=== PATIENT | female | born 1955 | race Caucasian/White ===

== ENCOUNTER → 2025-01-03 | Outpatient (CLI) | payer MEDICARE, OTHER, SELFPAY ==
--- NOTE | 2025-01-03 13:25 | MRI_ITS ---
EXAM: MRI LUMBAR SPINE. CLINICAL HISTORY: BACK PAIN RADIATING TO THE RIGHT LOWER EXTREMITY. COMPARISON: Radiographs on 11/29/2024. TECHNIQUE: Axial and sagittal T1 and T2 weighted images were obtained. Fat suppressed images were also obtained. FINDINGS: S-shaped degenerative scoliosis. Moderate diffuse spondylotic changes. Findings are demonstrated by multifocal disc dehydration, disc space narrowing, osteophyte formation and degenerative endplate changes. There is normal signal intensity from the visualized bone marrow without evidence of replacement or acute fracture. The conus is unremarkable. Straightening of the lumbar lordosis, probably muscular spasm and pain. Evaluation of the individual levels revealed the following: L5-S1: There is mild diffuse disc bulge. Superimposed broad-based left foraminal disc protrusion measuring 3.2 mm. Bilateral facet joint arthropathy and ligamentum flavum hypertrophy. The spinal canal is not narrowed. There is minimal right and mild left neural foramina narrowing. L4-5: There is mild diffuse disc bulge. Superimposed broad-based left posterolateral/foraminal disc protrusion measuring 5.4 mm. Bilateral facet joint arthropathy and ligamentum flavum hypertrophy. The spinal canal is not narrowed. There is mild right and moderate left neural foramina narrowing. L3-4: There is mild diffuse disc bulge. Superimposed broad-based right foraminal disc protrusion measuring 3.2 mm. Bilateral facet joint arthropathy and ligamentum flavum hypertrophy. The spinal canal is not narrowed. There is moderate right and mild left neural foramina narrowing. L2-3: There is grade 1 retrolisthesis measuring 5.2 mm. Moderate diffuse disc bulge. Superimposed broad-based right foraminal disc protrusion measuring 5.6 mm. Bilateral facet joint arthropathy and ligamentum flavum hypertrophy. The spinal canal is not narrowed. There is moderate right and mild left neural foramina narrowing. L1-2: There is grade 1 anterolisthesis measuring 3.7 mm. Mild diffuse disc bulge. Superimposed broad-based right posterolateral disc protrusion measuring 4.4 mm. Bilateral facet joint arthropathy and ligamentum flavum hypertrophy. The spinal canal is not narrowed. There is mild bilateral neural foramina narrowing. T12-L1: There is mild diffuse disc bulge. Bilateral facet joint arthropathy and ligamentum flavum hypertrophy. The spinal canal is not narrowed. Mild bilateral neural foraminal narrowing. T11-T12 :There is mild diffuse disc bulge. Bilateral facet joint arthropathy and ligamentum flavum hypertrophy. The spinal canal is not narrowed. Mild bilateral neural foraminal narrowing. Normal visualized paraspinous soft tissue structures. MRI/Spine Lumbar (Routine) IMPRESSION: Spondylosis. Degenerative disc disease. Reading [facility]
== END | disposition home or self-care (01) ==
LOC: MRI 13:14
PROVIDERS: PCP Family Medicine; Referring Provider Student in an Organized Health Care Education/Training Program; Visit Provider Student in an Organized Health Care Education/Training Program
DX: M48.062 Spinal stenosis, lumbar region with neurogenic claudication (principal)
CPT/HCPCS: 72148

== ENCOUNTER → 2025-01-27 | Outpatient (CLI) | payer MEDICARE, OTHER, SELFPAY ==
--- NOTE | 2025-01-27 11:00 | BD_ITS ---
PROCEDURE: DEXA BONE DENSITY STUDY 01/27/2025 REASON FOR EXAM: PAIN F, age 69 y/o . Postmenopausal. TECHNIQUE: DXA scan of sites with data reported below. REFERENCE LINKS: [facility] Adult Positions COMPARISON: None FINDINGS: BMD and T-SCORES Lumbar spine: 1.145 g/cm2, T-score 0.9 Levels: L1 through L4 Left femoral neck: 0.711 g/cm2, T-score -1.2 Femoral neck comparison data not recommended for monitoring change. Left total hip: 0.929 g/cm2, T-score -0.1 Right femoral neck: 0.704 g/cm2, T-score -1.3 Femoral neck comparison data not recommended for monitoring change. Right total hip: 0.900 g/cm2, T-score -0.3 The World Health Organization has defined the following categories based on bone density: Normal bone density: T-score equal to or greater than -1.0 Osteopenia: T-score between -1.0 and -2.5 Osteoporosis: T-score equal to or less than -2.5 (Note: FRAX is not to be reported in setting of normal range bone density, osteoporosis on DEXA, known history of osteoporosis, prior osteoporotic hip or vertebral fracture, or for any patient undergoing pharmacological treatment for bone loss.) The National Osteoporosis Foundation (NOF) recommends pharmacological treatment for patients with a FRAX 10-year risk of 3% or higher for a hip fracture, or 20% or higher for a major osteoporotic fracture, to prevent osteoporosis and reduce fracture risk. The patient does meet the pharmacological treatment recommendations for prevention of osteoporosis. BD/Dexa Bone Density Study IMPRESSION: OSTEOPENIA. Recommend follow-up as clinically warranted. Reading Location: [id number]
== END | disposition home or self-care (01) ==
LOC: OPBD 10:45
PROVIDERS: PCP Family Medicine; Referring Provider Student in an Organized Health Care Education/Training Program; Visit Provider Student in an Organized Health Care Education/Training Program
DX: M81.0 Age-related osteoporosis without current pathological fracture (principal); Z78.0 Asymptomatic menopausal state
CPT/HCPCS: 77080

== ENCOUNTER 2025-05-16 13:00 | Inpatient (IN) | payer MEDICARE, OTHER, SELFPAY ==
--- NOTE | 2025-05-10 11:15 | EKG12_ITS ---
Test Reason : PREOP Blood Pressure : */* mmHG Vent. Rate : 85 BPM Atrial Rate : 85 BPM P-R Int : 176 ms QRS Dur : 96 ms QT Int : 376 ms P-R-T Axes : 64 52 57 degrees QTcB Int : 447 ms Normal sinus rhythm Normal ECG Confirmed by LAVINIA GUO, THELMA ([id number]), makeup editor BART GOODWIN ([id number] on 05/11/2025 9:34:10 AM Referred By: Praveen Alvarenga Confirmed By: THELMA KATE MD
[2025-05-10 11:39] LABS: Hematocrit 37.8 % (37-47); Hemoglobin 13.1 g/dL (12.0-15.0); Immature Granulocytes Count 0.050 X10^3/uL (0.0-0.0); Mean Corp Hgb Conc 34.7 g/dL (32-36); Mean Corpuscular Volume 91.3 fL (81-99); Mean Platelet Vol. 9.5 fl (6.2-12.0); NRBC Flagged by Analyzer 0 % (0-5); Platelet Count 252 K/mm3 (150-450); RBC Distribution Width CV 13.6 % (11.6-14.6); RBC Distribution Width SD 45.6 fl (35.1-43.9); Red Blood Count 4.14 M/mm3 (4.2-5.4); White Blood Count 7.2 K/mm3 (4.4-11.0)
[2025-05-10 12:25] LABS: Anion Gap 15 (5-15); BUN 18 mg/dL (4-19); BUN/Creat Ratio 16.5 RATIO (10-20); Calcium,Total 9.9 mg/dL (7.6-11.0); Carbon Dioxide 21.7 mmol/L (21.0-32.0); Chloride 100 mmol/L (98-108); Glucose 107 mg/dL (70-99); Hepatitis C Antibody Nonreactive (Nonreactive); Potassium 4.8 mmol/L (3.3-5.1)
[2025-05-10 12:30] LABS: Magnesium 2.3 mg/dL (1.5-2.2)
[2025-05-10 16:17] LABS: HIV Nonreactive (Nonreactive)
[2025-05-16] VITALS (16 sets, daily range): BP systolic 106–165; BP diastolic 78–110; PULSE 76–96; RESP 16–18; TEMP 36.1–36.9; O2SAT 92–100; BMI 34.2
--- OUTSIDE RECORDS SUMMARY | 2025-05-16 05:32 | XMS RPT_ITS | CCD ---
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 Name Role Phone Ganga Tay Unavailable GANGA TAY Unavailable Unavailab le MASONENZO Unavailable Unavailable STENCEL, GANGA QUAN Unavailable Unavailab le STENCEL, GANGA QUAN Unavailable Unavailab le STENCEL, GANGA QUAN Primary Care Unavailab le STENCEL, GANGA QUAN Attending Unavailab le STENCELGANGA Referring Unavailab le StenGanga mahoney Primary Care Provider [phone] Ganga Tay Unavailable Unavailable Unavailable Ganga Tay Primary Care Unavailab le Stencel, Ganga Quan Attending Unavailab le Stencel, Ganga Quan Primary Care Unavailab le Stencel, Ganga Quan Attending Unavailab le Neelakandan Loggloria Admitting Unavailab le NeelakandanRubén Attending Unavailab le Stencel, Ganga Quan Primary Care Unavailab le StencelGanga Referring Unavailab le Stencel Ganga GUO Primary Care Provider [phone] Ganga Tay MD Unavailable [phone] Ganga Tay MD Unavailable Ganga Tay MD Primary Care Provider GANGA TAY Primary Care Unavailable DOYLE GARCIA Attending Unavailable STENCELGANGA Primary Care Unavailable ALY HESS Attending Unavailable STENGANGA MAHONEY Referring Unavailable STENGANGA MAHONEY Primary Care Unavailable RAUL FLETCHER Attending Unavailable STENGANGA MAHONEY Referring Unavailable STENGANGA MAHONEY Primary Care Unavailable SRI BALDWIN Attending Unavailable STENCEL, GANGA D Referring Unavailable STENCEL, GANGA D Primary Care Unavailable THOMAS ALEXANDRA Attending Unavailable RAUL FLETCHER Referring Unavailable STENCEL, GANGA Javier Primary Care Unavailable RAUL FLETCHER Attending Unavailable STENCEL, GANGA D Primary Care Unavailable CHANCERAUL BOATENG Attending Unavailable STENCEL, GANGA D Primary Care Unavailable Philipcel Ganga GUO Unavailable [phone] Ganga Tay MD Primary Care Provider [phone] Care Physician, No Primary Primary Care Provider Unavailable Care Physician, No Primary Referring Provider Un available Ayleen Plaza Attending Provider Dr. Cale Goyal MD Attending Provider Ayleen Plaza Referring Provider [phone] Ganga Tay MD Primary Care Provider [phone] Dr. Ganga Tay MD Referring Provider Ganga Tay MD Unavailable Dr. Praveen Alvarenga MD Attending Provider Dr. Ganga Tay MD Primary Care Provider [phone] Ayleen Plaza Attending Provider [phone] Ayleen Plaza Referring Provider [phone] Praveen Alvarenga Admitting Unavailable Praveen Alvarenga Attending Unavailable Stencel, Ganga Primary Care Unavailable Praveen Alvarenga Referring Unavailable Ayleen House Attending Unavailable Ayleen House Referring Unavailable Stencel, Ganga Primary Care Unavailable Ayleen House Attending Unavailable Ayleen House Referring Unavailable Stencel, Ganga Primary Care Unavailable Praveen Alvarenga Attending Unavailable Stencel, Ganga Referring Unavailable Stencel, Ganga Primary Care Unavailable Stencel, Ganga Referring Unavailable Praveen Alvarenga Attending Unavailable Stencel, Ganga Primary Care Unavailable Ayleen House Attending Unavailable Care Physician, No Primary Primary Care Unava ilable Care Physician, No Primary Referring Unava ilable Cale Goyal Attending Unavailable Care Physician, No Primary Primary Care Unava ilable Stencel, Ganga Primary Care Unavailable Ayleen House Attending Unavailable Stencel, Ganga Referring Unavailable STENCEL, GANGA D Primary Care Unavailable STENCEL, GANGA D Primary Care Unavailable STENCEL, GANGA D Primary Care Unavailable STENCEL, GANGA Javier Attending Unavailable STENCEL, GANGA D Primary Care Unavailable STENCEL, GANGA Javier Attending Unavailable HESSALY Referring Unavailable STENCEL, GANGA Javier Primary Care Unavailable STENCEL, GANGA D Attending Unavailable STENCEL, GANGA D Referring Unavailable STENCEL, GANGA D Primary Care Unavailable STENCEL, GANGA D Attending Unavailable STENCEL, GANGA D Primary Care Unavailable STENCEL, GANGA D Attending Unavailable STENCEL, GANGA D Referring Unavailable STENCEL, GANGA D Primary Care Unavailable STENCEL, GANGA D Attending Unavailable STENCEL, GANGA D Primary Care Unavailable STENCEL, GANGA D Attending Unavailable STENCEL, GANGA D Referring Unavailable STENCEL, GANGA D Primary Care Unavailable Allergies Allergy Classification Reported Allergen(s) Allergy Type Date of Onset Reaction(s) Facility (1 source) Seasonal Allergies: Uncoded; Translations: [Seasonal Allergies: Uncoded] Propensity to adverse reactions (disorder) [facility] Medications Current Medications Medication Drug Class(es) Dates Sig (Normalized) Sig (Original) acetaminophen 325 mg / oxyCODONE hydrochloride 5 mg oral tablet (1 source) Opioid Agonist Start: 08-30-2024 End: 09-06-2024 take 1 tablet by mouth every six hours for pain oxyCODONE-acetamin ophen (Percocet) 5-325 mg tablet Indications: Lumbar radiculopathy Take 1 tablet by mouth every 6 hours if needed for severe pain (7 - 10) for up to 7 days. 28 tablet 08/30/2024 09/06/2024 Active [id number] 200 actuat albuterol 0.09 mg/actuat metered dose inhaler (5 sources) beta2-Adrenergic Agonist Start: 07-05-2024 End: 07-05-2025 take 2 puff(s) by inhalation every six hours in the evening for wheezing albuterol 90 mcg/actuation inhaler Indications: Acute bronchitis, unspecified organism Inhale 2 puffs every 6 hours if needed for wheezing. 6.7 g 07/05/2024 2:51 PM EDT 07/05/2024 08/24/2024 Discontinued (Therapy completed) alendronic acid 70 mg oral tablet (20 sources) Bisphosphonate Start: 12-29-2024 End: 02-16-2025 take 1 tablet by mouth every week alendronate (Fosamax) 70 mg tablet Indications: Osteopenia of hip, unspecified laterality TAKE 1 TABLET BY MOUTH EVERY WEEK. take with plain water. no food other meds or lying down for at least 30 minutes afterwards 12 tablet 3 12/29/2024 02/16/2025 Discontinued (Therapy completed) Start: 12-18-2023 take 1 tablet by harpal th every week alendronate (Fosamax) 70 mg tablet Indications: Osteopenia of hip, unspecified laterality TAKE 1 TABLET BY MOUTH EVERY WEEK. take with plain water. no food other meds or lying down for at least 30 minutes afterwards 12 tablet 3 12/18/2023 Active Start: 12-24-2022 take 1 tablet by harpal th every week alendronate (Fosamax) 70 mg tablet Indications: Osteopenia of hip, unspecified laterality TAKE 1 TABLET BY MOUTH EVERY WEEK. take with plain water. no food other meds or lying down for at least 30 minutes afterwards 12 tablet 3 12/24/2022 Active Start: 08-02-2020 take 1 tablet by harpal th every week Alendronate Sodium 70 MG Oral Tablet TAKE 1 TABLET ONCE WEEKLY. Quantity: 12 Refills: 3 Ordered: 29-Jan-2022 Ganga Tay MD Start : 02-Aug-2020 Active aspirin 81 mg delayed release oral tablet (12 sources) Platelet Aggregation Inhibitor, Nonsteroidal Anti-inflammatory Drug End: 04-28-2025 take 1 tablet by mouth once daily aspirin 81 mg EC tablet Take 1 tablet (81 mg) by mouth once daily. 04/28/2025 Discontinued (Therapy completed) atorvastatin 40 mg oral tablet (17 sources) HMG-CoA Reductase Inhibitor Start: 09-09-2023 End: 08-30-2025 take 1 tablet by mouth once daily Atorvastatin 40 mg tablet Active 40 mg PO daily November 29, 2024 12:00am cholesterol azithromycin 250 mg oral tablet (1 source) Macrolide Antimicrobial Start: 07-05-2024 End: 07-10-2024 azithromycin (Zithromax Z-Priyank) 250 mg tablet Indications: Acute bronchitis, unspecified organism Take 2 tablets (500 mg) on Day 1, followed by 1 tablet (250 mg) once daily on Days 2 through 5. 6 tablet 07/05/2024 07/10/2024 Active 24 hr buPROPion hydrochloride 150 mg extended release oral tablet (7 sources) Aminoketone Start: 02-18-2025 take 1 tablet by mouth once daily Bupropion Hcl 150 mg tablet extended release 24 hr Active 150 mg PO daily February 18, 2025 12:00am Start: 02-16-2025 End: 04-28-2025 take 1 tablet by mouth once daily Bupropion Hcl 150 mg tablet extended release 24 hr Active 150 mg PO daily February 18, 2025 12:00am depression Start: 02-16-2025 End: 06-27-2025 take 1 tablet by mouth once daily in the morning buPROPion XL (Wellbutrin XL) 300 mg 24 hr tablet Indications: Nicotine dependence, cigarettes, uncomplicated Take 1 tablet (300 mg) by mouth once daily in the morning. Do not crush, chew, or split. 30 tablet 1 04/28/2025 06/27/2025 Active cetirizine hydrochloride 10 mg oral tablet (8 sources) Histamine-1 Receptor Antagonist take 0.5 tablet by mouth once daily cetirizine (ZyrTEC) 10 mg tablet Take 0.5 tablets (5 mg) by mouth once daily. Active cholecalciferol 0.025 mg oral tablet (2 sources) Vitamin D take 1 tablet by mouth once daily cholecalciferol (Vitamin D3) 25 mcg (1,000 units) tablet Take 1 tablet (25 mcg) by mouth once daily. Active fluticasone propionate 0.05 mg/actuat metered dose nasal spray (20 sources) Corticosteroid Start: End: take 2 spray(s) nasal route once daily fluticasone (Flonase) 50 mcg/actuation nasal spray Administer 2 sprays into each nostril once daily. 07/05/2020 02/16/2025 Discontinued (Therapy completed) Start: 07-05-2020 take 2 spray(s) nasa l route once daily Fluticasone Propionate 50 MCG/ACT Nasal Suspension USE 2 SPRAYS IN EACH NOSTRIL ONCE DAILY Quantity: 3 Refills: 3 Ordered: 29-Jan-2022 Ganga Tay MD Start : 05-Jul-2020 Active gabapentin 300 mg oral capsule (13 sources) Anti-epileptic Agent Start: 12-20-2024 gabapenti n (Neurontin) 300 mg capsule Indications: Lumbar radiculopathy 2 capsules in the morning, 1 capsule at Noon, 2 capsules at bedtime. 150 capsule 5 04/27/2025 4:40 PM EDT 12/20/2024 Active Start: 11-29-2024 take 1 capsule by mo uth three times daily as needed for pain Gabapentin 300 mg capsule Active 300 mg PO THREE TIMES A DAY as needed for pain November 29, 2024 12:00am Start: 10-11-2024 gabapentin (Ne urontin) 300 mg capsule Indications: Lumbar radiculopathy Take four capsules a day in three divided doses for 2 weeks,then increase to 5 capsules a day in 3 divided doses if needed 90 capsule 2 10/11/2024 Active Start: 08-24-2024 End: 11-22-2024 take 1 capsule by mouth three times daily gabapentin (Neurontin) 300 mg capsule Indications: Lumbar radiculopathy Take 1 capsule (300 mg) by mouth 3 times a day. 90 capsule 2 08/24/2024 10/11/2024 Discontinued (Reorder) losartan potassium 100 mg oral tablet (11 sources) Angiotensin 2 Receptor Austin Start: 08-30-2024 End: 08-30-2025 take 1 tablet by mouth once daily Losartan 100 mg tablet Active 100 mg PO daily November 29, 2024 12:00am bp 24 hr metFORMIN hydrochloride 500 mg extended release oral tablet (16 sources) Biguanide Start: 12-18-2023 End: 12-17-2025 take 1 tablet by mouth once daily in the morning Metformin 500 mg tablet extended release 24 hr Active 500 mg PO EVERY MORNING November 29, 2024 12:00am blood sugar montelukast 10 mg oral tablet (20 sources) Leukotriene Receptor Antagonist Start: 07-05-2020 End: 04-28-2025 take 1 tablet by mouth once daily montelukast (Singulair) 10 mg tablet Take 1 tablet (10 mg) by mouth once daily. 07/05/2020 04/28/2025 Discontinued (Therapy completed) sertraline 50 mg oral tablet (11 sources) Serotonin Reuptake Inhibitor Start: 02-18-2023 End: 12-17-2024 take 1 tablet by mouth once daily sertraline (Zoloft) 50 mg tablet Indications: Insomnia, unspecified type Take 1 tablet (50 mg) by mouth once daily. 90 tablet 3 12/18/2023 08/24/2024 Discontinued (Therapy completed) Start: 12-16-2022 End: 02-18-2023 take 1 tablet by mouth once daily at bedtime sertraline (Zoloft) 25 mg tablet Take 1 tablet (25 mg) by mouth once daily at bedtime. 0 12/16/2022 02/18/2023 Discontinued (Therapy completed) Start: 11-05-2022 take 1 tablet by harpal th at bedtime Sertraline HCl - 25 MG Oral Tablet TAKE 1 TABLET Bedtime Quantity: 30 Refills: 11 Ordered: 05-Nov-2022 Ganga Tay MD Start : 05-Nov-2022 Active levothyroxine sodium 0.175 mg oral tablet (20 sources) l-Thyroxine Start: 01-27-2025 End: 01-27-2026 take 1 tablet by mouth once daily Levothyroxine 175 mcg tablet Active 175 ug PO .qd May 02, 2025 12:00am thyroid Start: 12-21-2019 End: 12-17-2024 take 1 tablet by mouth once daily levothyroxine (Synthroid, Levoxyl) 175 mcg tablet Indications: Hypothyroidism, unspecified type Take 1 tablet (175 mcg) by mouth once daily. 90 tablet 3 12/18/2023 12/17/2024 Active Start: 08-08-2014 take 1 tablet by harpal th once daily Levothyroxine 150 MCG tablet Active 150 ug PO DAILY August 08, 2014 1:00am Completed/Discontinued Medications Medication Drug Class(es) Dates Sig (Normalized) Sig (Original) acetaminophen 325 mg / HYDROcodone bitartrate 5 mg oral tablet (5 sources) Opioid Agonist Start: 08-03-2024 End: 08-23-2024 take 2 tablets by mouth every six hours for pain HYDROcodone-acetam inophen ([place]) 5-325 mg tablet Indications: Acute midline low back pain without sciatica Take 2 tablets by mouth every 6 hours if needed for severe pain (7 - 10) for up to 7 days. 56 tablet 08/09/2024 08/16/2024 Discontinued (Reorder) albuterol 0.833 mg/ml / ipratropium bromide 0.167 mg/ml inhalation solution (2 sources) Anticholinergic, beta2-Adrenergic Agonist Start: 07-05-2024 End: 07-05-2024 ipratropium-albute roL (Duo-Neb) 0.5-2.5 mg/3 mL nebulizer solution 3 mL Start: 07-05-2024 End: 07-05-2024 3 mL, nebulization, Once, On Fri07/05/24 at 1425, For 1 dose cefprozil 250 mg oral tablet (3 sources) Cephalosporin Antibacterial Start: 08-02-2021 End: 01-31-2022 take 1 tablet by mouth once daily Cefprozil 250 MG Oral Tablet TAKE 1 TABLET EVERY 12 HOURS DAILY. Quantity: 14 Refills: 1 Ordered: 02-Aug-2021 Ganga Tay MD Start : 02-Aug-2021 End : 31-Jan-2022 Complete cyclobenzaprine hydrochloride 5 mg oral tablet (14 sources) Muscle Relaxant Start: 11-29-2024 End: 05-02-2025 take 1 tablet by mouth at bedtime Cyclobenzaprine 5 mg tablet Discontinued 5 mg PO AT BEDTIME November 29, 2024 12:00am May 02, 2025 8:13am Start: 10-11-2024 End: 01-31-2025 take 1 tablet by mouth three times daily as needed for muscle spasms Cyclobenzaprine 10 mg tablet Active 10 mg PO THREE TIMES A DAY as needed for muscle spasm November 29, 2024 12:00am diclofenac sodium 0.01 mg/mg topical gel (14 sources) Nonsteroidal Anti-inflammatory Drug Start: 11-29-2024 End: 05-02-2025 Diclofenac Sodium (Voltaren Arthritis Pain) 1 % gel Discontinued 2 g TOPICAL ONCE November 29, 2024 12:00am May 02, 2025 8:14am apply to single elbow, wrist or hand; for hand includes palm/fingers/back of hand Start: 10-11-2024 End: 10-11-2025 take 1 tablet by mouth once daily diclofenac sodium (Voltaren XR) 100 mg 24 hr tablet Indications: Lumbar radiculopathy Take 1 tablet (100 mg) by mouth once daily. 90 tablet 3 02/16/2025 Active hydroCHLOROthiazide 12.5 mg / lisinopril 10 mg oral tablet (3 sources) Thiazide Diuretic, Angiotensin Converting Enzyme Inhibitor Start: 12-21-2019 take 1 tablet by mouth once daily Lisinopril-hydroCHLOROthiazide 10-12.5 MG Oral Tablet Take 1 tablet daily Quantity: 90 Refills: 3 Ordered: 30-Jan-2021 Ganga Tay MD Start : 21-Dec-2019 Active Start: 11-27-2017 take 10-12.5 mg by mouth once lisinopril-hydrochlorothiazide (PRINZIDE,ZESTORETIC) 10-12.5 mg per tablet Take 1 tablet by mouth daily. 11 11/27/2017 Active Start: 11-27-2017 take 1 tablet by harpal th once daily lisinopril-hydrochlorothiazide (PRINZIDE,ZESTORETIC) 10-12.5 mg per tablet Take 1 tablet by mouth daily. 11 11/27/2017 Active hydroCHLOROthiazide 12.5 mg / losartan potassium 100 mg oral tablet (17 sources) Thiazide Diuretic, Angiotensin 2 Receptor Austin Start: 08-20-2023 End: 11-16-2024 take 1 tablet by mouth once daily losartan-hydrochlorothiazide (Hyzaar) 100-12.5 mg tablet Indications: Primary hypertension Take 1 tablet by mouth once daily. 90 tablet 3 11/17/2023 08/30/2024 Discontinued (Therapy completed) Start: 08-02-2021 take 1 tablet by harpal th once daily losartan-hydrochlorothiazide (Hyzaar) 100-12.5 mg tablet Take 1 tablet by mouth once daily. 0 08/02/2021 Active Start: 08-02-2021 take 1 tablet by harpal th once daily Losartan Potassium-HCTZ 50-12.5 MG Oral Tablet TAKE 1 TABLET DAILY. Quantity: 90 Refills: 3 Ordered: 02-Aug-2021 Ganga Tay MD Start : 02-Aug-2021 Active iohexol (OMNIPaque) 300 mg iodine/mL solution 3 mL (1 source) Start: 09-24-2024 End: 09-24-2024 3 mL, miscellaneous, Once in OR, Starting on Fri09/24/24 at 1415, For 1 dose, Intraprocedure 10 ml lidocaine hydrochloride 20 mg/ml injection (1 source) Antiarrhythmic, Amide Local Anesthetic Start: 09-24-2024 End: 09-24-2024 120 mg (6 mL), infiltration, Once, On Fri09/24/24 at 1430, For 1 dose, Intraprocedure Start: 09-24-2024 End: 09-24-2024 120 mg (6 mL), infiltration, Once, On Fri09/24/24 at 1430, For 1 dose, Intraprocedure 1 ml methylPREDNISolone acetate 40 mg/ml injection (1 source) Corticosteroid Start: 09-24-2024 End: 09-24-2024 As needed, Starting on Fri09/24/24 at 1409, Intraprocedure 1 ml morphine sulfate 4 mg/ml prefilled syringe (1 source) Opioid Agonist Start: 08-03-2024 End: 08-03-2024 4 mg, intravenous, Once, On Fri08/03/24 at 1125, For 1 dose 2 ml ondansetron 2 mg/ml injection (1 source) Serotonin-3 Receptor Antagonist Start: 08-03-2024 End: 08-03-2024 4 mg, intravenous, Once, On Fri08/03/24 at 1125, For 1 dose, When administering via IV Push, administer over 3-5 minutes. predniSONE 50 mg oral tablet (5 sources) Start: 08-03-2024 End: 08-09-2024 take 1 tablet by mouth once daily predniSONE (Deltasone) 50 mg tablet Indications: Acute midline low back pain without sciatica Take 1 tablet (50 mg) by mouth once daily for 5 days. 5 tablet 08/03/2024 08/09/2024 Discontinued (Therapy completed) Start: 07-05-2024 End: 07-11-2024 take 6 tablets by mouth once daily, then take 5 tablets by mouth once daily, then take 4 tablets by mouth once daily, then take 3 tablets by mouth once daily, then take 2 tablets by mouth once daily, then take 1 tablet by mouth once daily predniSONE (Deltasone) 10 mg tablet Indications: Acute bronchitis, unspecified organism Take 6 tablets (60 mg) by mouth once daily for 1 day, THEN 5 tablets (50 mg) once daily for 1 day, THEN 4 tablets (40 mg) once daily for 1 day, THEN 3 tablets (30 mg) once daily for 1 day, THEN 2 tablets (20 mg) once daily for 1 day, THEN 1 tablet (10 mg) once daily for 1 day. 21 tablet 07/05/2024 07/11/2024 Active Start: 08-02-2021 take 4 tablets by [facility] once daily at mealtime predniSONE 10 MG Oral Tablet TAKE 4 TABLET Daily TAKE WITH FOOD Quantity: 20 Refills: 2 Ordered: 02-Aug-2021 Ganga Tay MD Start : 02-Aug-2021 Active 5 ml sodium chloride 9 mg/ml injection (1 source) Start: 09-24-2024 End: 09-24-2024 As needed, Starting on Fri09/24/24 at 1409, Intraprocedure traZODone hydrochloride 50 mg oral tablet (3 sources) Serotonin Reuptake Inhibitor Start: 08-05-2022 End: 11-05-2022 take 1 tablet by mouth at bedtime traZODone HCl - 50 MG Oral Tablet TAKE 1 TABLET AT BEDTIME. Quantity: 30 Refills: 11 Ordered: 05-Aug-2022 Ganga Tay MD Start : 05-Aug-2022 End : 05-Nov-2022 Complete 1 ml triamcinolone acetonide 40 mg/ml injection (1 source) Corticosteroid Start: 12-16-2017 End: 12-16-2017 triamcinolone acetonide (KENALOG-40) injection 40 mg Problems Active Problems Problem Classification Problem Date Documented Da te Episodic/Chronic Allergic reactions (8 sources) Environmental allergy; Translations: [Other allergy, other than to medicinal agents] Episodic Chronic obstructive pulmonary disease and bronchiectasis (20 sources) Emphysema, unspecified; Translations: [Pulmonary emphysema] Onset: 08-20-2022 08-26-2023 Chronic Diabetes mellitus without complication (20 sources) Type 2 diabetes mellitus without complication; Translations: [Type 2 diabetes mellitus without complications] Onset: 12-18-2023 12-18-2023 Chronic Disorders of lipid metabolism (20 sources) Hyperlipidemia; Translations: [Other and unspecified hyperlipidemia] Onset: 02-03-2023 02-18-2023 Chronic Essential hypertension (20 sources) Hypertensive disorder; Translations: [Unspecified essential hypertension] Onset: 02-03-2023 02-03-2023 Chronic Immunizations and screening for infectious disease (20 sources) Patient encounter status; Translations: [Other specified vaccination] 08-26-2023 Episodic Nutritional deficiencies (1 source) Cobalamin deficiency; Translations: [Deficiency of other specified B group vitamins] 08-26-2023 Episodic Osteoporosis (1 source) Age-related osteoporosis without current pathological fracture; Translations: [Age-related osteoporosis without current pathological fracture] Onset: 02-01-2025 Chronic Other acquired deformities (3 sources) Scoliosis of lumbar spine; Translations: [Scoliosis, unspecified] 02-21-2025 Chronic Other acquired deformities (3 sources) Lumbar spondylolisthesis; Translations: [Spondylolisthesis, lumbar region] 02-21-2025 Episodic Other bone disease and musculoskeletal deformities (20 sources) Osteopenia; Translations: [Disorder of bone and cartilage, unspecified] Onset: 02-03-2023 02-03-2023 Episodic Other bone disease and musculoskeletal deformities (1 source) Other specified disorders of bone density and structure, left thigh; Translations: [Oth disrd of bone density and structure, left thigh] Onset: 07-29-2022 Episodic Other connective tissue disease (2 sources) Trigger thumb, left thumb; Translations: [Trigger thumb, left thumb] Onset: 12-16-2017 Episodic Other lower respiratory disease (1 source) Other nonspecific abnormal finding of lung field; Translations: [Other nonspecific abnormal finding of lung field] Onset: 08-20-2022 Episodic Other nervous system disorders (16 sources) Bilateral carpal tunnel syndrome; Translations: [Carpal tunnel syndrome, bilateral upper limbs] Onset: 08-26-2023 08-26-2023 Chronic Other nutritional; endocrine; and metabolic disorders (3 sources) Obesity; Translations: [Obesity, unspecified] Chronic Other nutritional; endocrine; and metabolic disorders (2 sources) Obese class I; Translations: [Class 1 obesity] 05-10-2025 Chronic Other screening for suspected conditions (not mental disorders or infectious disease) (4 sources) Encounter for screening mammogram for malignant neoplasm of breast; Translations: [Encntr screen mammogram for malignant neoplasm of breast] Onset: 07-29-2022 Episodic Other skin disorders (8 sources) Eruption; Translations: [Rash and other nonspecific skin eruption] Episodic Other upper respiratory disease (20 sources) Allergic rhinitis; Translations: [Allergic rhinitis, cause unspecified] Onset: 02-03-2023 02-03-2023 Chronic Other upper respiratory disease (2 sources) Allergic rhinitis, unspecified; Translations: [Allergic rhinitis, unspecified] Onset: 02-03-2023 Chronic Residual codes; unclassified (8 sources) Menopause present; Translations: [Symptomatic menopausal or female climacteric states] Episodic Residual codes; unclassified (4 sources) Asymptomatic menopausal state; Translations: [Asymptomatic menopausal state] Onset: 07-29-2022 Episodic Spondylosis; intervertebral disc disorders; other back problems (3 sources) Degeneration of lumbar intervertebral disc; Translations: [Degenerative disc disease, lumbar] 11-29-2024 Chronic Substance-related disorders (20 sources) Nicotine dependence; Translations: [Tobacco use disorder] Onset: 08-20-2022 Chronic Thyroid disorders (20 sources) Hypothyroidism; Translations: [Unspecified acquired hypothyroidism] Onset: 02-03-2023 02-18-2023 Chronic Unclassified (1 source) Patient encounter status 08-30-2024 Unclassified (3 sources) Low back pain, unspecified; Translations: [Low back pain, unspecified] Onset: 08-09-2024 Viral infection (2 sources) COVID-19; Translations: [COVID-19] Onset: 09-24-2021 Past or Other Problems Problem Classification Problem Date Documented Da te Episodic/Chronic Acute bronchitis (20 sources) Acute bronchitis; Translations: [Acute bronchitis] Onset: 02-03-2023 02-03-2023 Episodic Diabetes mellitus without complication (20 sources) Hyperglycemia; Translations: [Impaired fasting glucose] Onset: 02-03-2023 02-03-2023 Episodic Fluid and electrolyte disorders (8 sources) Hyponatremia; Translations: [Hypo-osmolality and hyponatremia] Onset: 08-03-2024 08-03-2024 Episodic Mood disorders (6 sources) Mood disorders Onset: 09-24-2024 09-24-2024 Other gastrointestinal disorders (20 sources) Stool DNA-based colorectal cancer screening positive; Translations: [Abnormal feces] Onset: 02-03-2023 02-03-2023 Episodic Residual codes; unclassified (20 sources) Insomnia; Translations: [Insomnia, unspecified] Onset: 02-03-2023 02-18-2023 Episodic Spondylosis; intervertebral disc disorders; other back problems (20 sources) Acute low back pain; Translations: [Acute midline low back pain without sciatica] Onset: 08-23-2024 08-03-2024 Episodic Unclassified (16 sources) Onset: 02-18-2023 Resolved: 09-24-2024 02-18-2023 Unclassified (2 sources) Low back pain, unspecified; Translations: [Low back pain, unspecified] Onset: 08-09-2024 Viral infection (20 sources) Disease caused by 2019-nCoV; Translations: [Other specified viral infection] Onset: 02-03-2023 Resolved: 02-03-2023 02-03-2023 Episodic Results Test Name Value Interpretation Reference Range Facility Bacteriaon 05-11-2025 Bacteria identified Cx Nom (Unsp spec) Test: Tissue/Wound Culture/Smear Specimen Source: Nasal Specimen Type: Tissue/Biopsy Specimen Date: 05/11/2025 1630 Result Date: 05/13/2025 0739 Result Status: Preliminary result Resulting Lab: [facility] [id number] [id number] CULTURE Culture in progress STAIN No polymorphonuclear leukocytes seen No organisms seen Normal [facility] Comment on above: Performed By: #### 6 463-4 #### LYNDSEY Oliva ([id number]) [facility] ([facility]) [address] [place] [address] Hepatitis A AB, Totalon 04-23 HEPATITIS A,TOT Negative Normal Negative [facility] Comment on above: Result Comment: Comm ent: The HAV total antibody assay detects both IgG and IgM but does not differentiate between them. A negative result suggests susceptibility to infection. A positive result could be due to vaccination, previously resolved infection or active infection. Testing for HAV IgM should be performed if active HAV infection is suspected. [facility] offers profiles that will automatically reflex positive HAV total antibody results to IgM (e.g., panel #[id number] HAV Antibody w/ Rfx). Performed at: [address] [id number] [employer] Range Controller: Kedar Kwok PhD, Phone: [phone] Performed By: #### B TSPAT, L3100.0300, L100.0100, L501.9985, L500.2500, L3890.9881, L3890.0242 ####[facility] [address] [place], [address] SARS coronavirus 2 RNAon SARS-CoV-2 (COVID-19) RNA WES+probe Ql (Resp) Not detected Normal Not Detected [facility] Comment on above: Order Comment: This assay is an FDA-cleared, in vitro diagnostic nucleic acid amplification test for the qualitative detection and differentiation of SARS CoV-2 from nasopharyngeal specimens collected from individuals with signs and symptoms of respiratory tract infections, and has been validated for use at [facility]. Negative results do not preclude COVID-19 infections and should not be used as the sole basis for diagnosis, treatment, or other management decisions. Testing for SARS CoV-2 is recommended only for patients who meet current clinical and/or epidemiological criteria defined by federal, state, or local public health directives. Performed By: #### 9 4500-6 #### LYNDSEY Oliva ([id number]) [facility] ([facility]) [id number] [place] [address] 12 Lead EKGon 05-10-2025 12 Lead EKG [facility] [address] [place] [address] 12 Lead EKG 05/10/25 1123 MR#: [id number] Acct: [id number] Name: RENETTA LUJAN Rep #: [id number] : 1955 69 From: Cale Goyal MD Attending Dr: Dr. Praveen Alvarenga MD Status: PRE IN Ordering Dr: Praveen Alvarenga MD Date: 05/10/25 Location: [facility] Sex: F C Admitted: Test Reason : PREOP Blood Pressure : */* mmHG Vent. Rate : 85 BPM Atrial Rate : 85 BPM P-R Int : 176 ms QRS Dur : 96 ms QT Int : 376 ms P-R-T Axes : 64 52 57 degrees QTcB Int : 447 ms Normal sinus rhythm Normal ECG Confirmed by CALE GOYAL MD ([id number]), associate entertainment editor BART GOODWIN ([id number]) on 05/11/2025 9:34:10 AM Referred By: Praveen Alvarenga Confirmed By: CALE GOYAL MD 05/11/25 0934 Date Cale Goyal MD CC: Dr. Praveen Alvarenga MD; Dr. Ganga Tay MD Signed Normal [facility] Basic Metabolic Profile (BMP )on 05-10-2025 BUN/CRE 16.5 RATIO Normal 10-20 [facility] Comment on above: Performed By: #### B TSPAT, L3100.0300, L100.0100, L501.9985, L500.2500, L3890.6301, L3890.6202 ####[facility] [address] [place], [address] Calcium [Mass/Vol] 9.9 mg/dL Normal 7.6-11.0 [facility] Comment on above: Performed By: #### B TSPAT, L3100.0300, L100.0100, L501.9985, L500.2500, L3890.6301, L3890.6202 ####[facility] [address] [place], [address] Chloride [Moles/Vol] 100 mmol/L Normal 98-108 [facility] Comment on above: Performed By: #### B TSPAT, L3100.0300, L100.0100, L501.9985, L500.2500, L3890.6301, L3890.6202 ####[facility] [address] [place], [address] CO2 [Moles/Vol] 21.7 mmol/L Normal 21.0-32.0 [facility] Comment on above: Performed By: #### B TSPAT, L3100.0300, L100.0100, L501.9985, L500.2500, L3890.6301, L3890.6202 ####[facility] [address] [place], [address] Creatinine [Mass/Vol] 1.10 mg/dL Normal 0.70-1.20 [facility] Comment on above: Performed By: #### B TSPAT, L3100.0300, L100.0100, L501.9985, L500.2500, L3890.6301, L3890.6202 ####[facility] [address] [place], [address] GAP 15 Normal 5-15 [facility] Comment on above: Performed By: #### B TSPAT, L3100.0300, L100.0100, L501.9985, L500.2500, L3890.6301, L3890.6202 ####[facility] [address] [place], [address] GFR/1.73 sq M.predicted among non-blacks MDRD (S/P/Bld) [Vol rate/Area] 54 mL/min/{1.73_m2} Low >60 [facility] Comment on above: Result Comment: mL/m in/1.73m2 CKD-EPI Creatinine Equation (2020) Performed By: #### B TSPAT, L3100.0300, L100.0100, L501.9985, L500.2500, L3890.6301, L3890.6202 ####[facility] [address] [place], [address] Glucose [Mass/Vol] 107 mg/dL High 70-99 [facility] Comment on above: Performed By: #### B TSPAT, L3100.0300, L100.0100, L501.9985, L500.2500, L3890.6301, L3890.6202 ####[facility] [address] [place], [address] Potassium [Moles/Vol] 4.8 mmol/L Normal 3.3-5.1 [facility] Comment on above: Performed By: #### B TSPAT, L3100.0300, L100.0100, L501.9985, L500.2500, L3890.6301, L3890.6202 ####[facility] [address] [place], [address] Sodium [Moles/Vol] 137 mmol/L Normal 133-145 [facility] Comment on above: Performed By: #### B TSPAT, L3100.0300, L100.0100, L501.9985, L500.2500, L3890.6301, L3890.6202 ####[facility] [address] [place], [address] Urea nitrogen [Mass/Vol] 18 mg/dL Normal 4-19 [facility] Comment on above: Performed By: #### B TSPAT, L3100.0300, L100.0100, L501.9985, L500.2500, L3890.6301, L3890.6202 ####[facility] [address] [place], [address] CBC W/Diff, Automatedon 04-22 Absolute Lymph 1.53 X10 3/uL Normal 0.83-4.51 [facility] Comment on above: Performed By: #### B TSPAT, L3100.0300, L100.0100, L501.9985, L500.2500, L3890.6301, L3890.6202 #### [facility] [address] [place], [address] Absolute Neut 4.6 X10 3/uL Normal 2.0-7.7 [facility] Comment on above: Performed By: #### B TSPAT, L3100.0300, L100.0100, L501.9985, L500.2500, L3890.6301, L3890.6202 #### [facility] [address] [place], [address] Basophils/100 WBC (Bld) 1.0 % Normal 0-1 [facility] Comment on above: Performed By: #### B TSPAT, L3100.0300, L100.0100, L501.9985, L500.2500, L3890.6301, L3890.6202 #### [facility] [address] [place], [address] Eosinophils/100 WBC (Bld) 4.2 % Normal 0-5 [facility] Comment on above: Performed By: #### B TSPAT, L3100.0300, L100.0100, L501.9985, L500.2500, L3890.6301, L3890.6202 #### [facility] [address] [place], [address] Erythrocyte distribution width (RBC) [Ratio] 13.6 % Normal 11.6-14.6 [facility] Comment on above: Performed By: #### B TSPAT, L3100.0300, L100.0100, L501.9985, L500.2500, L3890.6301, L3890.6202 #### [facility] [address] [place], [address] Hematocrit (Bld) [Volume fraction] 37.8 % Normal 37-47 [facility] Comment on above: Performed By: #### B TSPAT, L3100.0300, L100.0100, L501.9985, L500.2500, L3890.6301, L3890.6202 #### [facility] [address] [place], [address] Hemoglobin (Bld) [Mass/Vol] 13.1 g/dL Normal 12.0-15.0 [facility] Comment on above: Performed By: #### B TSPAT, L3100.0300, L100.0100, L501.9985, L500.2500, L3890.6301, L3890.6202 #### [facility] [address] [place], [address] IG% 0.700 Normal 0.0-0.9 [facility] Comment on above: Result Comment: IG% - Immature Granulocytes (promyelocytes, myelocytes and metamyelocytes) > 1% indicates that a LEFT SHIFT is Present. Performed By: #### B TSPAT, L3100.0300, L100.0100, L501.9985, L500.2500, L3890.6301, L3890.6202 #### [facility] [address] [place], [address] Lymphocytes/100 WBC (Bld) 21.3 % Normal 19-41 [facility] Comment on above: Performed By: #### B TSPAT, L3100.0300, L100.0100, L501.9985, L500.2500, L3890.6301, L3890.6202 #### [facility] [address] [facility] [place], [address] MCH (RBC) [Entitic mass] 31.6 pg Normal 27.0-32.0 [facility] Comment on above: Performed By: #### B TSPAT, L3100.0300, L100.0100, L501.9985, L500.2500, L3890.6301, L3890.6202 #### [facility] [address] [facility] [place], [address] MCHC (RBC) [Mass/Vol] 34.7 g/dL Normal 32-36 [facility] Comment on above: Performed By: #### B TSPAT, L3100.0300, L100.0100, L501.9985, L500.2500, L3890.6301, L3890.6202 #### [facility] [address] [place], [address] MCV (RBC) [Entitic vol] 91.3 fL Normal 81-99 [facility] Comment on above: Performed By: #### B TSPAT, L3100.0300, L100.0100, L501.9985, L500.2500, L3890.6301, L3890.6202 #### [facility] [address] [place], [address] Monocytes/100 WBC (Bld) 9.2 % Normal 0-10 [facility] Comment on above: Performed By: #### B TSPAT, L3100.0300, L100.0100, L501.9985, L500.2500, L3890.6301, L3890.6202 #### [facility] [address] [place], [address] Neutrophils/100 WBC (Bld) 63.6 % Normal 47-70 [facility] Comment on above: Performed By: #### B TSPAT, L3100.0300, L100.0100, L501.9985, L500.2500, L3890.6301, L3890.6202 #### [facility] [address] [facility] [place], [address] Nucleated RBC (Bld) [#/Vol] 0 10*3/uL Normal 0-5 [facility] Comment on above: Performed By: #### B TSPAT, L3100.0300, L100.0100, L501.9985, L500.2500, L3890.6301, L3890.6202 #### [facility] [address] [facility] [place], [address] Platelet mean volume (Bld) [Entitic vol] 9.5 fL Normal 6.2-12.0 [facility] Comment on above: Performed By: #### B TSPAT, L3100.0300, L100.0100, L501.9985, L500.2500, L3890.6301, L3890.6202 #### [facility] [address] [place], [address] Platelets (Bld) [#/Vol] 252 10*3/uL Normal 150-450 [facility] Comment on above: Performed By: #### B TSPAT, L3100.0300, L100.0100, L501.9985, L500.2500, L3890.6301, L3890.6202 #### [facility] [address] [place], [address] RBC (Bld) [#/Vol] 4.14 10*6/uL Low 4.2-5.4 [facility] Comment on above: Performed By: #### B TSPAT, L3100.0300, L100.0100, L501.9985, L500.2500, L3890.6301, L3890.6202 #### [facility] [address] [place], [address] RDW SD 45.6 fl High 35.1-43.9 [facility] Comment on above: Performed By: #### B TSPAT, L3100.0300, L100.0100, L501.9985, L500.2500, L3890.6301, L3890.6202 #### [facility] [address] [place], [address] WBC (Bld) [#/Vol] 7.2 10*3/uL Normal 4.4-11.0 [facility] Comment on above: Performed By: #### B TSPAT, L3100.0300, L100.0100, L501.9985, L500.2500, L3890.6301, L3890.6202 #### [facility] [address] [place], [address] HIVon 05-10-2025 HIV Non-Reactive Normal Nonreactive [facility] Comment on above: Result Comment: Non- Reactive Reactive Repeatedly reactive samples must be confirmed according to CDC recommended confirmatory algorithms. The subresults for either HIVAG or AHIV can be used as an aid in the selection of the confirmation algorithm for reactive samples. Send out specimens with Reactive results to [facility] for confirmation. Order the HIV antibody detection and differentiation: #[id number] Performed By: #### L 3890.6006 #### [facility] [address] [place], [place], [id number] Hemoglobin A1con 05-10-2025 HbA1c (Bld) [Mass fraction] 6.5 % High <=5.6 [facility] Comment on above: Result Comment: Norm al < 5.7 % Prediabetic 5.7 - 6.4 % Diabetic >or= 6.5 % Please note range changes. Performed By: #### B TSPAT, L3100.0300, L100.0100, L501.9985, L500.2500, L3890.6301, L3890.6202 ####[facility] [address] [place], [place], [id number] Hepatitis B Surface Antibody on 05-10-2025 HEP B Surf Ab Non-Reactive Normal [facility] Comment on above: Result Comment: <8.5 mIU/mL: Non-Reactive 8.5<= x <11.5 mIU/mL: Indeterminate >=11.5 mIU/mL: Reactive Non Reactive: Inconsistent with immunity less than <10 mIU/mL Reactive: Consistent with immunity greater than or equal to 10 mIU/mL Performed By: #### B TSPAT, L3100.0300, L100.0100, L501.9985, L500.2500, L3890.6301, L3890.6202 ####[facility] [address] [place], [place], [id number] Hepatitis C Antibodyon 05-10 Hepatitis C Ab Non-Reactive Normal Nonreactive [facility] Comment on above: Result Comment: Reac tive: Presumptive evidence of antibodies to HCV. Follow CDC recommendations for supplemental testing. Non-Reactive: Antibodies to HCV were not detected; does not exclude the possibility of exposure to HCV Reactive Results are presumptive evidence of antibodies to HCV. Follow CDC recommendations for supplemental testing. Order confirmation testing: HCV Quant by PCR testing - HCVPCR #[id number] Non Reactive: < 0.8 Equivocal: >/= 0.8 to < 1.0 Reactive: >/= 1.0 The CDC requires that a reactive/equivocal HCV antibody result be sent out for confirmation. HCV Quant by PCR testing. Performed By: #### B TSPAT, L3100.0300, L100.0100, L501.9985, L500.2500, L3890.6301, L3890.6202 ####[facility] [address] [place], [address] Magnesiumon 05-10-2025 Magnesium [Mass/Vol] 2.3 mg/dL High 1.5-2.2 [facility] Comment on above: Performed By: #### L 501.5200, L501.9520 #### [facility] [address] [place], [address] Orthopedic Visit Reporton Orthopedic Visit Report [facility] [address] [place] [address] [address] [place] [address] OFFICE VISIT Date of Service: 05/10/25 MR#: [id number] Acct: [id number] Name: RENETTA LUJAN Rep #: [id number] : 1955 Provider: Dr. Praveen Alvarenga MD Age/Sex: 69/F Location: [facility] Status: Signed Intake Vital Signs 11/29/24 10:05 05/10/25 10:03 Height 5 ft 9 in 5 ft 9 in Weight: 224 lb BMI 33.0 Intake Visit Reasons: lumbar spine Chief Complaint: Lumbar fusion pre op Accompanied by: Is patient in pain?: No Allergies Seasonal Allergies: Uncoded Adverse Reaction (Verified 05/10/25 10:05) Other Medications ???Medication ???Instructions ???Recorded ???Confirmed ???Type atorvastatin 40 mg tablet 40 mg PO QDAY cholesterol 11/29/24 05/10/25 History cyclobenzaprine 10 mg tablet 10 mg PO TID PRN muscle spasm 11/2005/10/25 History diclofenac sodium 100 mg 100 mg PO QDAY pain 11/29/2405/10 History tablet,extended release 24 hr gabapentin 300 mg capsule 300 mg PO TID PRN pain 11/29/24 History losartan 100 mg tablet 100 mg PO QDAY bp 11/29/24 5 History metformin 500 mg tablet,extended 500 mg PO QAM blood sugar 11/29/24 05/10/25 History release 24 hr bupropion HCl 150 mg 24 hr tablet, 150 mg PO QDAY depression 05/10/25 History extended release levothyroxine 175 mcg tablet 175 mcg PO .qd thyroid 05/02/25 History Have you fallen in the past year?: No PFSH Medical History (Updated 05/10/25 @ 10:12 by Albania Oviedo RN) Obesity (BMI 30.0-34.9) Wears contact lenses Wears glasses Ambulates with cane Diabetes Arthritis Back pain Dietary restriction Heartburn Smoker Hypertension Thyroid activity decreased Surgical History Hx of colonoscopy with polypectomy Family History Mother Hypertension Cancer Pancreatic Father Hypertension Grandmother Heart disease Congestive heart failure Grandfather No problems noted. Social History Smoking Status: Light Smoker (<10/day) alcohol intake: current substance use type: does not use HPI lumbar spine Details: This documentation accurately reflects the service provided and the decisions made by me, Dr. Praveen Alvarenga MD 05/10/25 0956. Part of today???s visit was documented by Ann Baez MA, acting as scribe. RENETTA LUJAN is a 69 year old F here today for lumbar fusion pre op. Patient would like to go over the surgery details. She would like to know what she can and can't do after the surgery. I went over the surgery pre op soap and the ensure drinks witgh the patient. I also gave her the pre op folder and the instructions how to use the ensure and the soap. The patient is a 69-year-old female presenting with a discussion about her upcoming spinal surgery. She has a history of scoliosis, which is a curvature of the spine, and arthritis, which has resulted in a loss of range of motion. The patient also has diabetes mellitus, which increases her risk of surgical complications. The patient has not had any previous surgeries on her lower back, which reduces her risk of nerve injury during the procedure. She has undergone two sections in the past, resulting in vertical incisions below the belly button. The patient recently quit smoking after 50 years, which is beneficial for her surgical recovery. - Musculoskeletal: Reports difficulty turning over in bed due to back pain. - Neurological: Reports pain primarily on the right side, with potential for pain on the left side post-surgery. Attestation: Documentation on this patient encounter was supported using ambient scribe technology/ voice AI technology. The patient consented to recording for the purpose of documenting the encounter. Provider reviewed content of the generated note prior to signature. 02/18/25: RENETTA LUJAN is a 69 year old F here today for bone density review. Patient rates her pain a 2/10 today. She states her pain is always there it just depends on the day, weather and her activity level. She denies any recent injections or treatment since her last visit. 01/13/2025: RENETTA LUJAN is a 69 year old F here today for lumbar spine MRI review. Patient states her pain has stayed the same since her last visit. She denies any recent injections since her last visit. Midline abdominal incision from 2 c sections, says that she has diabetes, unsure of last a1c, no heart or lung issues, no blood thinners. 11/29/2024: RENETTA LUJAN is a 69 year old F here today for lumbar spine pain. Patient (more content not included)... Normal [facility] Thyroid Stim Hormone (TSH)on 05-10-2025 TSH 0.792 uIU/mL Normal 0.300-4.200 [facility] Comment on above: Performed By: #### L 501.5200, L501.9520 #### [facility] [address] [place], [address] Type AND Screen - PAT ONLYon 05-10-2025 Ab SCREEN GEL Negative Normal [facility] Comment on above: Order Comment: Reaso n for Laboratory Test pre [id number] fusion Performed By: #### B TSPAT, L3100.0300, L100.0100, L501.9985, L500.2500, L3890.6301, L3890.6202 ####[facility] [address] [place], [address] Orthopedic Visit Reporton Orthopedic Visit Report [facility] [address] [place] [address] [address] [place] [address] OFFICE VISIT Date of Service: 02/18/25 MR#: [id number] Acct: [id number] Name: RENETTA LUJAN Rep #: [id number] : 1955 Provider: Dr. Praveen Alvarenga MD Age/Sex: 69/F Location: [facility] Status: Signed Intake Vital Signs 11/29/24 10:05 Height 5 ft 9 in Intake Visit Reasons: LUMBAR SPINE Chief Complaint: Bone Scan Review Accompanied by: and Daughter Is patient in pain?: Yes Pain scale (1-10): 2 Allergies Seasonal Allergies: Uncoded Adverse Reaction (Verified 02/18/25 13:59) Other Medications ???Medication ???Instructions ???Recorded ???Confirmed ???Type levothyroxine 150 mcg tablet 150 mcg PO DAILY 08/08/14 02/18/25 History atorvastatin 40 mg tablet 40 mg PO QDAY 11/29/24 02/18/25 Hi story cyclobenzaprine 10 mg tablet 10 mg PO TID PRN muscle spasm 11/2002/18/25 History cyclobenzaprine 5 mg tablet 5 mg PO QHS 11/29/24 02/18/25 Hist ory diclofenac sodium 1 % topical gel 2 g topical ONCE 11/29/24 5 History (Voltaren Arthritis Pain) diclofenac sodium 100 mg 100 mg PO QDAY 11/29/24 02/18/25 H istory tablet,extended release 24 hr gabapentin 300 mg capsule mg PO 11/29/24 02/18/25 History losartan 100 mg tablet 100 mg PO QDAY 11/29/24 02/18/25 H istory metformin 500 mg tablet,extended 500 mg PO QAM 11/29/24 02/18/25 Hi story release 24 hr bupropion HCl 150 mg 24 hr tablet, 150 mg PO QDAY 02/18/25 02/18/25 History extended release Have you fallen in the past year?: No PFSH Medical History Thyroid activity decreased Family History Mother Hypertension Cancer Pancreatic Father Hypertension Grandmother Heart disease Congestive heart failure Grandfather No problems noted. Social History Smoking Status: Current every day smoker alcohol intake: current substance use type: does not use HPI LUMBAR SPINE Details: This documentation accurately reflects the service provided and the decisions made by me, Dr. Praveen Alvarenga MD 02/18/25 0657. Part of today???s visit was documented by Monica Dyson ATC, acting as scribe. RENETTA LUJAN is a 69 year old F here today for bone density review. Patient rates her pain a 2/10 today. She states her pain is always there it just depends on the day, weather and her activity level. She denies any recent injections or treatment since her last visit. 01/13/2025: RENETTA LUJAN is a 69 year old F here today for lumbar spine MRI review. Patient states her pain has stayed the same since her last visit. She denies any recent injections since her last visit. Midline abdominal incision from 2 c sections, says that she has diabetes, unsure of last a1c, no heart or lung issues, no blood thinners. 11/29/2024: RENETTA LUJAN is a 69 year old F here today for lumbar spine pain. Patient went to the ER in July. Pain since June. They did a CT scan. She had an epidural in September. That made the pain worse. It hurts on the right side. The pain starts on the right side of the back then comes down to the knee. Denies any numbness in the foot and toes. Patient can't walk for periods of time. Has to sleep in a recliner. She did water therapy in September and that didn't help. Physical therapy put a heating pad on her and it didn't work. Patient was told not to got to a chiropractor. Hasn't went to pain management. Denies any surgery done on her back. Some days are better then others with balance. Tingling in shins initially when her pain started but currently does not have any tingling or symptoms below the knees. Pain with walking and can only walk a short distance before needing to rest due to the pain in her right leg. She relies on a shopping cart to the leg pain which makes it more bearable. No benefit cyclobenzaprine been taking gabapentin since August. Ortho Exam General General: Yes no acute distress Neurologic: Yes alert and Yes oriented x3 Spine SPINE TESTING CERVICAL THORACIC LUMBAR Musculoskeletal Strength 0=absent - 5=normal Details: Neurological exam of the lower extremities shows 5x5 power increased pain with hip flexion. Normal sensations across all dermatomes. No hyperreflexia. No midline and mild right paraspinal tenderness. Increased pain with back extension. Coding Level of Care Code Off vis,est,level 5 Diagnoses Lumbar stenosis with neurogenic claudication M48.062 Other secondary scoliosis, lumbar region M41.56 Scoliosis type: other secondary scoliosis Spondylolisthesis, lumbar region M43.16 Lumbar disc herniation with radiculopathy M51 (more content not included)... Normal [facility] Bone density reportOrdered B y: John Correa on 01-31-2025 Study report Skeletal system DXA [facility] [address] [place] [address] Dexa Bone Density Study MR#: [id number] Acct: [id number] Name: RENETTA LUJAN Rep #: [id number] : 1955 F 69 From: Hugo Correa MD PCP: Dr. Ganga Tay MD Status: RE G CLI Study:Dexa Bone Density Study Date of Exam: 01/27/25 Exam# [id number] Ordering Dr: Ishmael House PA PROCEDURE: DEXA BONE DENSITY STUDY 01/27/2025 REASON FOR EXAM: PAIN F, age 69 y/o . Postmenopausal. TECHNIQUE: DXA scan of sites with data reported below. REFERENCE LINKS: ISCD Adult Positions COMPARISON: None FINDINGS: BMD and T-SCORES Lumbar spine: 1.145 g/cm2, T-score 0.9 Levels: L1 through L4 Left femoral neck: 0.711 g/cm2, T-score -1.2 Femoral neck comparison data not recommended for monitoring change. Left total hip: 0.929 g/cm2, T-score -0.1 Right femoral neck: 0.704 g/cm2, T-score -1.3 Femoral neck comparison data not recommended for monitoring change. Right total hip: 0.900 g/cm2, T-score -0.3 The World Health Organization has defined the following categories based on bonedensity: Normal bone density: T-score equal to or greater than -1.0 Osteopenia: T-score between -1.0 and -2.5 Osteoporosis: T-score equal to or less than -2.5 (Note: FRAX is not to be reported in setting of normal range bone density, osteoporosis on DEXA, known history of osteoporosis, prior osteoporotic hip or vertebral fracture, or for any patient undergoing pharmacological treatment for bone loss.) The National Osteoporosis Foundation (NOF) recommends pharmacological treatment for patients with a FRAX 10-year risk of 3% or higher for a hip fracture, or 20% or higher for a major osteoporotic fracture, to prevent osteoporosis and reduce fracture risk. The patient does meet the pharmacological treatment recommendations for prevention of osteoporosis. BD/Dexa Bone Density Study IMPRESSION: OSTEOPENIA. Recommend follow-up as clinically warranted. Reading Location: [id number] CC: TERRI Holland; Dr. Ganga Tay MD ~ Chief Operator Hydroformer: Signed [facility] Dexa Bone Density Studyon Dexa Bone Density Study [facility] [address] [place] [address] Dexa Bone Density Study MR#: [id number] Acct: [id number] Name: RENETTA LUJAN Rep #: [id number] : 1955 F 69 From: John beckford MD PCP: Dr. Ganga Tay MD Status: REG CLI Study: Dexa Bone Density Study Date of Exam: 01/27/25 Exam# [id number] Ordering Dr: Ayleen House PROCEDURE: DEXA BONE DENSITY STUDY 01/27/2025 REASON FOR EXAM: PAIN F, age 69 y/o . Postmenopausal. TECHNIQUE: DXA scan of sites with data reported below. REFERENCE LINKS: ISCD Adult Positions COMPARISON: None FINDINGS: BMD and T-SCORES Lumbar spine: 1.145 g/cm2, T-score 0.9 Levels: L1 through L4 Left femoral neck: 0.711 g/cm2, T-score -1.2 Femoral neck comparison data not recommended for monitoring change. Left total hip: 0.929 g/cm2, T-score -0.1 Right femoral neck: 0.704 g/cm2, T-score -1.3 Femoral neck comparison data not recommended for monitoring change. Right total hip: 0.900 g/cm2, T-score -0.3 The World Health Organization has defined the following categories based on bone density: Normal bone density: T-score equal to or greater than -1.0 Osteopenia: T-score between -1.0 and -2.5 Osteoporosis: T-score equal to or less than -2.5 (Note: FRAX is not to be reported in setting of normal range bone density, osteoporosis on DEXA, known history of osteoporosis, prior osteoporotic hip or vertebral fracture, or for any patient undergoing pharmacological treatment for bone loss.) The National Osteoporosis Foundation (NOF) recommends pharmacological treatment for patients with a FRAX 10-year risk of 3% or higher for a hip fracture, or 20% or higher for a major osteoporotic fracture, to prevent osteoporosis and reduce fracture risk. The patient does meet the pharmacological treatment recommendations for prevention of osteoporosis. BD/Dexa Bone Density Study IMPRESSION: OSTEOPENIA. Recommend follow-up as clinically warranted. Reading Location: [id number]-Z CC: TERRI Holland; Dr. Ganga Tay MD Chief Operator Hydroformer: Signed Normal [facility] Orthopedic Visit Reporton Orthopedic Visit Report [facility] [address] [place] [address] OFFICE VISIT Date of Service: 01/13/25 MR#: [id number] Acct: [id number] Name: RENETTA LUJAN Rep #: [id number] : 1955 Provider: TERRI Holland Age/Sex: 69/F Location: [facility] Status: Signed Intake Vital Signs 11/29/24 10:05 Height 5 ft 9 in Weight: 222 lb 6 oz BMI 32.8 Intake Visit Reasons: LUMBAR SPINE Chief Complaint: MRI Review Accompanied by: Is patient in pain?: Yes Allergies Seasonal Allergies: Uncoded Adverse Reaction (Verified 01/13/25 14:06) Other Medications ???Medication ???Instructions ???Recorded ???Confirmed ???Type levothyroxine 150 mcg tablet 150 mcg PO DAILY 08/08/14 01/13/25 History atorvastatin 40 mg tablet 40 mg PO QDAY 11/29/24 01/13/25 Hi story cyclobenzaprine 10 mg tablet 10 mg PO TID PRN muscle spasm 11/2001/13/25 History cyclobenzaprine 5 mg tablet 5 mg PO QHS 11/29/24 01/13/25 Hist ory diclofenac sodium 1 % topical gel 2 g topical ONCE 11/29/24 5 History (Voltaren Arthritis Pain) diclofenac sodium 100 mg 100 mg PO QDAY 11/29/24 01/13/25 H istory tablet,extended release 24 hr gabapentin 300 mg capsule mg PO 11/29/24 01/13/25 History losartan 100 mg tablet 100 mg PO QDAY 11/29/24 01/13/25 H istory metformin 500 mg tablet,extended 500 mg PO QAM 11/29/24 01/13/25 Hi story release 24 hr Have you fallen in the past year?: No PFSH Medical History Thyroid activity decreased Family History Mother Hypertension Cancer Pancreatic Father Hypertension Grandmother Heart disease Congestive heart failure Grandfather No problems noted. Social History Smoking Status: Current every day smoker alcohol intake: current substance use type: does not use HPI LUMBAR SPINE Details: This documentation accurately reflects the service provided and the decisions made by me, TERRI Holland 01/13/25 2142. Part of today???s visit was documented by Monica Dyson ATC, acting as scribe. RENETTA LUJAN is a 69 year old F here today for lumbar spine MRI review. Patient states her pain has stayed the same since her last visit. She denies any recent injections since her last visit. Midline abdominal incision from 2 c sections, says that she has diabetes, unsure of last a1c, no heart or lung issues, no blood thinners. 11/29/2024: RENETTA LUJAN is a 69 year old F here today for lumbar spine pain. Patient went to the ER in July. Pain since June. They did a CT scan. She had an epidural in September. That made the pain worse. It hurts on the right side. The pain starts on the right side of the back then comes down to the knee. Denies any numbness in the foot and toes. Patient can't walk for periods of time. Has to sleep in a recliner. She did water therapy in September and that didn't help. Physical therapy put a heating pad on her and it didn't work. Patient was told not to got to a chiropractor. Hasn't went to pain management. Denies any surgery done on her back. Some days are better then others with balance. Tingling in shins initially when her pain started but currently does not have any tingling or symptoms below the knees. Pain with walking and can only walk a short distance before needing to rest due to the pain in her right leg. She relies on a shopping cart to the leg pain which makes it more bearable. No benefit cyclobenzaprine been taking gabapentin since August. Ortho Exam General General: Yes no acute distress Neurologic: Yes alert and Yes oriented x3 Spine SPINE TESTING CERVICAL THORACIC LUMBAR Musculoskeletal Strength 0=absent - 5=normal Details: Neurological exam of the lower extremities shows 5x5 power increased pain with hip flexion. Normal sensations across all dermatomes. No hyperreflexia. No midline and mild right paraspinal tenderness. Increased pain with back extension. Coding Level of Care Code Off vis,est,level 4 Diagnoses Lumbar stenosis with neurogenic claudication M48.062 Assessment and Plan Assessment and Plan (1) Lumbar stenosis with neurogenic claudication: Status: Acute Orders: Orders Dexa Bone Density Study 01/13/25 M81.0 - Age-related osteoporosis without current pathological fracture Plan Again reviewed prior Xrays show a mild levoscoliosis, multilevel disc height loss, a retrolisthesis of L2 on L3. Reviewed MRI from January 03, 2025 which shows a disc bulge at L2-3 resulting in a mild- moderate spinal stenosis with moderate right and mild left neuroforaminal stenosis. L3-4 mild disc bulge with moderate rig (more content not included)... Normal [facility] Magnetic resonance imaging r eportOrdered By: Ivan Masters on 01-05-2025 Study report [facility] [address] [place] [address] Spine Lumbar (Routine) MR#: [id number] Acct: [id number] Name: RENETTA LUJAN Rep #: [id number] : 1955 F 69 From: Chio Masters MD PCP: Dr. Ganga Tay MD Status: RE G CLI Study:Spine Lumbar (Routine) Date of Exam: 01/03/25 Exam# [id number] Ordering Dr: Ishmael House PA EXAM: MRI LUMBAR SPINE. CLINICAL HISTORY: BACK PAIN RADIATING TO THE RIGHT LOWER EXTREMITY. COMPARISON: Radiographs on 11/29/2024. TECHNIQUE: Axial and sagittal T1 and T2 weighted images were obtained. Fat suppressed images were also obtained. FINDINGS: S-shaped degenerative scoliosis. Moderate diffuse spondylotic changes. Findings are demonstrated by multifocal disc dehydration, disc space narrowing, osteophyte formation and degenerative endplate changes. There is normal signal intensity from the visualized bone marrow without evidence of replacement or acute fracture. The conus is unremarkable. Straightening of the lumbar lordosis, probably muscular spasm and pain. Evaluation of the individual levels revealed the following: L5-S1: There is mild diffuse disc bulge. Superimposed broad-based left foraminal disc protrusion measuring 3.2 mm. Bilateral facet joint arthropathy and ligamentum flavum hypertrophy. The spinal canal is not narrowed. There is minimal right and mild left neural foramina narrowing. L4-5: There is mild diffuse disc bulge. Superimposed broad-based left posterolateral/rosaura inal disc protrusion measuring 5.4 mm. Bilateral facet joint arthropathy and ligamentum flavum hypertrophy. The spinalcanal is not narrowed. There is mild right and moderate left neural foramina narrowing. L3-4: There is mild diffuse disc bulge. Superimposed broad-based right foraminal disc protrusion measuring 3.2 mm. Bilateral facet joint arthropathy and ligamentum flavum hypertrophy. The spinal canal is not narrowed. There is moderate right and mild left neural foramina narrowing. L2-3: There is grade 1 retrolisthesis measuring 5.2 mm. Moderate diffuse disc bulge. Superimposed broad-based right foraminal disc protrusion measuring 5.6 mm. Bilateral facet joint arthropathy and ligamentum flavum hypertrophy. The spinal canal is not narrowed. There is moderate right and mild left neural foramina narrowing. L1-2: There is grade 1 anterolisthesis measuring 3.7 mm. Mild diffuse disc bulge. Superimposed broad-based right posterolateral disc protrusion measuring 4.4 mm. Bilateral facet joint arthropathy and ligamentum flavum hypertrophy. The spinal canal is not narrowed. There is mild bilateral neural foramina narrowing. T12-L1: There is mild diffuse disc bulge. Bilateral facet joint arthropathy andligamentum flavum hypertrophy. The spinal canal is not narrowed. Mild bilateral neural foraminal narrowing. T11-T12 :There is mild diffuse disc bulge. Bilateral facet joint arthropathy and ligamentum flavum hypertrophy. The spinal canal is not narrowed. Mild bilateral neural foraminal narrowing. Normal visualized paraspinous soft tissue structures. MRI/Spine Lumbar (Routine) IMPRESSION: Spondylosis. Degenerative disc disease. Reading Location: [place] [address] CC: TERRI Holland; Dr. Ganga Tay MD ~ Chief Operator Hydroformer: Signed [facility] Spine Lumbar (Routine)on Spine Lumbar (Routine) [facility] Services [address] [place] [id number] Spine Lumbar (Routine) MR#: [id number] Acct: [id number] Name: RENETTA LUJAN Rep #: [id number] : 1955 F 69 From: Ivan lubin MD PCP: Dr. Ganga Tay MD Status: REG CLI Study: Spine Lumbar (Routine) Date of Exam: 01/03/25 Exam# [id number] Ordering Dr: Ayleen House EXAM: MRI LUMBAR SPINE. CLINICAL HISTORY: BACK PAIN RADIATING TO THE RIGHT LOWER EXTREMITY. COMPARISON: Radiographs on 11/29/2024. TECHNIQUE: Axial and sagittal T1 and T2 weighted images were obtained. Fat suppressed images were also obtained. FINDINGS: S-shaped degenerative scoliosis. Moderate diffuse spondylotic changes. Findings are demonstrated by multifocal disc dehydration, disc space narrowing, osteophyte formation and degenerative endplate changes. There is normal signal intensity from the visualized bone marrow without evidence of replacement or acute fracture. The conus is unremarkable. Straightening of the lumbar lordosis, probably muscular spasm and pain. Evaluation of the individual levels revealed the following: L5-S1: There is mild diffuse disc bulge. Superimposed broad-based left foraminal disc protrusion measuring 3.2 mm. Bilateral facet joint arthropathy and ligamentum flavum hypertrophy. The spinal canal is not narrowed. There is minimal right and mild left neural foramina narrowing. L4-5: There is mild diffuse disc bulge. Superimposed broad-based left posterolateral/rosaura inal disc protrusion measuring 5.4 mm. Bilateral facet joint arthropathy and ligamentum flavum hypertrophy. The spinal canal is not narrowed. There is mild right and moderate left neural foramina narrowing. L3-4: There is mild diffuse disc bulge. Superimposed broad-based right foraminal disc protrusion measuring 3.2 mm. Bilateral facet joint arthropathy and ligamentum flavum hypertrophy. The spinal canal is not narrowed. There is moderate right and mild left neural foramina narrowing. L2-3: There is grade 1 retrolisthesis measuring 5.2 mm. Moderate diffuse disc bulge. Superimposed broad-based right foraminal disc protrusion measuring 5.6 mm. Bilateral facet joint arthropathy and ligamentum flavum hypertrophy. The spinal canal is not narrowed. There is moderate right and mild left neural foramina narrowing. L1-2: There is grade 1 anterolisthesis measuring 3.7 mm. Mild diffuse disc bulge. Superimposed broad-based right posterolateral disc protrusion measuring 4.4 mm. Bilateral facet joint arthropathy and ligamentum flavum hypertrophy. The spinal canal is not narrowed. There is mild bilateral neural foramina narrowing. T12-L1: There is mild diffuse disc bulge. Bilateral facet joint arthropathy and ligamentum flavum hypertrophy. The spinal canal is not narrowed. Mild bilateral neural foraminal narrowing. T11-T12 :There is mild diffuse disc bulge. Bilateral facet joint arthropathy and ligamentum flavum hypertrophy. The spinal canal is not narrowed. Mild bilateral neural foraminal narrowing. Normal visualized paraspinous soft tissue structures. MRI/Spine Lumbar (Routine) IMPRESSION: Spondylosis. Degenerative disc disease. Reading Location[facility] CC: TERRI Holland; Dr. Ganga Tay MD Chief Operator Hydroformer: Signed Normal [facility] L/S Spine Min 4 Viewson 11-20 L/S Spine Min 4 Views [facility] [address] [place] [address] [id number] L/S Spine Min 4 Views MR#: [id number] Acct: [id number] Name: RENETTA LUJAN Rep #: [id number] : 1955 F 69 From: Issa Salazar MD PCP: Care Physician,No Primary Status: DEP AMB Study: L/S Spine Min 4 Views Date of Exam: 11/29/24 Exam# [id number] Ordering Dr: Ayleen House EXAM: XR Cervical Spine Flexion/Extension Only, 2 or 3 Views CLINICAL INDICATION: TECHNIQUE: Lateral flexion/extension views of the cervical spine. COMPARISON: No relevant prior studies available. FINDINGS: VERTEBRAE: Multilevel endplate degenerative changes and disc disease of the lumbar spine from L1- S1. Facet arthropathy from L2-S1. Grade 1 retrolisthesis of L2 over L3. No acute fracture. DISC SPACES: See above. SOFT TISSUES: Unremarkable. VASCULATURE: Scattered calcified atherosclerotic disease of aorta. RAD/L/S Spine Min 4 Views IMPRESSION: Retrolisthesis of L2 over L3 without significant dynamic instability. Reading Location: [id number] CC: TERRI Holland; No Primary Care Physician Chief Operator Hydroformer: Signed Normal [facility] Orthopedic Visit Reporton Orthopedic Visit Report [facility] [address] [place] [address] [address] [place], [place] [address] OFFICE VISIT Date of Service: 11/29/24 MR#: [id number] Acct: [id number] Name: RENETTA LUJAN Rep #: [id number] : 1955 Provider: TERRI Holland Age/Sex: 69/F Location: [facility] Status: Signed Intake Vital Signs 01/02/16 06:48 11/29/24 10:05 Height 5 ft 9 in 5 ft 9 in Weight: 222 lb 6 oz BMI 32.8 Intake Visit Reasons: LUMBAR SPINE Chief Complaint: Lumbar spine pain Accompanied by: Is patient in pain?: Yes Pain scale (1-10): 3 Allergies Seasonal Allergies: Uncoded Adverse Reaction (Verified 11/29/24 10:06) Other Medications ???Medication ???Instructions ???Recorded ???Confirmed ???Type levothyroxine 150 mcg tablet 150 mcg PO DAILY 08/08/14 11/29/24 History atorvastatin 40 mg tablet 40 mg PO QDAY 11/29/24 11/29/24 Hi story cyclobenzaprine 10 mg tablet 10 mg PO TID PRN muscle spasm 11/2011/29/24 History cyclobenzaprine 5 mg tablet 5 mg PO QHS 11/29/24 11/29/24 Hist ory diclofenac sodium 1 % topical gel 2 g topical ONCE 11/29/24 5 History (Voltaren Arthritis Pain) diclofenac sodium 100 mg 100 mg PO QDAY 11/29/24 11/29/24 H istory tablet,extended release 24 hr gabapentin 300 mg capsule mg PO 11/29/24 11/29/24 History losartan 100 mg tablet 100 mg PO QDAY 11/29/24 11/29/24 H istory metformin 500 mg tablet,extended 500 mg PO QAM 11/29/24 11/29/24 Hi story release 24 hr Have you fallen in the past year?: No PFSH Medical History Thyroid activity decreased Family History Mother Hypertension Cancer Pancreatic Father Hypertension Grandmother Heart disease Congestive heart failure Grandfather No problems noted. Social History (Reviewed 11/29/24 @ 10:16 by KENJI Ramirez Smoking Status: Current every day smoker alcohol intake: current substance use type: does not use HPI LUMBAR SPINE Details: This documentation accurately reflects the service provided and the decisions made by me, TERRI Holland 11/29/24 1005. Part of today???s visit was documented by Ann Dyson MA, acting as scribe. RENETTA LUJAN is a 69 year old F here today for lumbar spine pain. Patient went to the ER in July. Pain since June. They did a CT scan. She had an epidural in September. That made the pain worse. It hurts on the right side. The pain starts on the right side of the back then comes down to the knee. Denies any numbness in the foot and toes. Patient can't walk for periods of time. Has to sleep in a recliner. She did water therapy in September and that didn't help. Physical therapy put a heating pad on her and it didn't work. Patient was told not to got to a chiropractor. Hasn't went to pain management. Denies any surgery done on her back. Some days are better then others with balance. Tingling in shins initially when her pain started but currently does not have any tingling or symptoms below the knees. Pain with walking and can only walk a short distance before needing to rest due to the pain in her right leg. She relies on a shopping cart to the leg pain which makes it more bearable. No benefit cyclobenzaprine been taking gabapentin since August. Ortho Exam General General: Yes no acute distress Neurologic: Yes alert and Yes oriented x3 Spine SPINE TESTING CERVICAL THORACIC LUMBAR Musculoskeletal Strength 0=absent - 5=normal Details: Neurological exam of the lower extremities shows 5x5 power increased pain with hip flexion. Normal sensations across all dermatomes. No hyperreflexia. No midline and mild right paraspinal tenderness. Increased pain with back extension. Coding Level of Care Code Off vis,new,level 4 Diagnoses Lumbar stenosis with neurogenic claudication M48.062 Degeneration of intervertebral disc of lumbar region with discogenic back pain and lower extremity pain M51.362 Disc-related pain type: discogenic back pain and lower extremity pain Assessment and Plan Assessment and Plan (1) Lumbar stenosis with neurogenic claudication: Status: Acute (2) Degenerative disc disease, lumbar: Qualifiers: Disc-related pain type: discogenic back pain and lower extremity pain Qualified Code(s): M51.362 - Other intervertebral disc degeneration, lumbar region with discogenic back pain and lower extremity pain Orders: Orders L/S Spine Min 4 Views Today M54.50 - Low back pain, unspecified Spine Lumbar (Routine) Today M48.062 - Spinal stenosis, lumbar region with neurogenic claudication Plan Obtained and reviewed xrays today with the patient. Xrays show a mild levos (more content not included)... Normal [facility] HEMOGLOBIN A1c WITH eAGon eAG (mmol/L) 8.1 mmol/L Normal [facility] Comment on above: Order Comment: FASTI NG:NO FASTING: NO Performed By: #### 1 [id number] #### [facility] [address], [address] [place] [address] General Accounting Clerk: Zi Kumari MD HEMOGLOBIN A1c 6.7 % of total Hgb High <5.7 [facility] Comment on above: Order Comment: FASTI NG:NO FASTING: NO Result Comment: For someone without known diabetes, a hemoglobin A1c value of 6.5% or greater indicates that they may have diabetes and this should be confirmed with a follow-up test. For someone with known diabetes, a value <7% indicates that their diabetes is well controlled and a value greater than or equal to 7% indicates suboptimal control. A1c targets should be individualized based on duration of diabetes, age, comorbid conditions, and other considerations. Currently, no consensus exists regarding use of hemoglobin A1c for diagnosis of diabetes for children. Performed By: #### 1 2862 #### [facility] [address], [address] [place] [address] General Accounting Clerk: Zi Kumari MD Magnesium [Mass/Vol] 146 mg/dL Normal [facility] Comment on above: Order Comment: FASTI NG:NO FASTING: NO Performed By: #### 1 4612 #### [facility] [address], [address] [place] [address] General Accounting Clerk: Zi Kumari MD Basic metabolic 2000 panelon 10-01-2024 Anion gap [Moles/Vol] 14 mmol/L Normal 10-20 [facility] Comment on above: Performed By: #### 2 4321-2 #### LEA CORTÉS ([id number]) [facility] ([facility]) [address] [place] [address] Calcium [Mass/Vol] 9.9 mg/dL Normal 8.6-10.3 [facility] Comment on above: Performed By: #### 2 4321-2 #### LEA CORTÉS ([id number]) [facility] ([facility]) [address] [place] [address] Chloride [Moles/Vol] 98 mmol/L Normal 98-107 [facility] Comment on above: Performed By: #### 2 4321-2 #### LEA CORTÉS ([id number]) [facility] ([facility]) [address] [place] [address] CO2 [Moles/Vol] 27 mmol/L Normal 21-32 [facility] Comment on above: Performed By: #### 2 4321-2 #### LEA CORTÉS ([id number]) [facility] ([facility]) [address] [place] [address] Creatinine [Mass/Vol] 0.59 mg/dL Normal 0.50-1.05 [facility] Comment on above: Performed By: #### 2 4321-2 #### LEA CORTÉS ([id number]) [facility] ([facility]) [address] [place] [address] GFR/1.73 sq M.predicted MDRD (S/P/Bld) [Vol rate/Area] mL/min/{1.73_m2} Normal >60 [facility] Comment on above: Result Comment: Calc ulations of estimated GFR are performed using the 2020 CKD-EPI Study Refit equation without the race variable for the IDMS-Traceable creatinine methods. https://jasn.asnjournals.org/content/early/ASN.6729559 988 Performed By: #### 2 4321-2 #### LEA CORTÉS ([id number]) [facility] ([facility]) [address] [place], [place] [address] Glucose [Mass/Vol] 100 mg/dL High 74-99 [facility] Comment on above: Performed By: #### 2 4321-2 #### LEA CORTÉS ([id number]) [facility] ([facility]) [address] [place] [address] Potassium [Moles/Vol] 4.7 mmol/L Normal 3.5-5.3 [facility] Comment on above: Performed By: #### 2 4321-2 #### LEA CORTÉS ([id number]) [facility] ([facility]) [address] [place] [address] 64169 Sodium [Moles/Vol] 134 mmol/L Low 136-145 [facility] Comment on above: Performed By: #### 2 4321-2 #### LEA CORTÉS ([id number]) [facility] ([facility]) [address] [place] [address] 66023 Urea nitrogen [Mass/Vol] 16 mg/dL Normal 6-23 [facility] Comment on above: Performed By: #### 2 4321-2 #### LEA CORTÉS ([id number]) [facility] ([facility]) [address] [place] [address] 98844 Epidural Steroid Injectionon 09-24-2024 [facility] Work Phone: Radiology Study observation (narrative) [facility] Work Phone: [place] PAIN MANAGEMENTon 025 [place] PAIN MANAGEMENT These images are not reportable by radiology and will not be interpreted by Radiologists. Normal [facility] FL pain managementon 025 These images are not reportable by radiology and will not be interpreted by Radiologists. [facility] Work Phone: Glucose Test strip manual (B ld) [Mass/Vol]on 09-24-2024 Glucose [Mass/Vol] 90 mg/dL 74 - 99 mg/dL [facility] Interpretation and review of laboratory results Normal [facility] Glucose [Mass/Vol] 90 mg/dL Normal 74-[address] [facility] Comment on above: Performed By: #### 2 341-6 #### LEA CORTÉS ([id number]) [facility] ([facility]) [address] [place] [address] 98107 Basic metabolic 2000 panelon 08-24-2024 Anion gap [Moles/Vol] 12 mmol/L Normal 10-20 [facility] Comment on above: Performed By: #### 2 4321-2 #### LEA CORTÉS ([id number]) [facility] ([facility]) [address] [place] [address] 27483 Calcium [Mass/Vol] 9.3 mg/dL Normal 8.6-10.3 [facility] Comment on above: Performed By: #### 2 4321-2 #### LEA CORTÉS ([id number]) [facility] ([facility]) [address] [place] [address] 96652 Chloride [Moles/Vol] 97 mmol/L Low 98-107 [facility] Comment on above: Performed By: #### 2 4321-2 #### LEA CORTÉS ([id number]) [facility] ([facility]) [address] [place] [address] 55798 CO2 [Moles/Vol] 30 mmol/L Normal 21-32 [facility] Comment on above: Performed By: #### 2 4321-2 #### LEA CORTÉS ([id number]) [facility] ([facility]) [address] [place] [address] 06097 Creatinine [Mass/Vol] 0.62 mg/dL Normal 0.50-1.05 [facility] Comment on above: Performed By: #### 2 4321-2 #### LEA CORTÉS ([id number]) [facility] ([facility]) [address] [place] [address] 66735 GFR/1.73 sq M.predicted MDRD (S/P/Bld) [Vol rate/Area] mL/min/{1.73_m2} Normal >60 [facility] Comment on above: Result Comment: Calc ulations of estimated GFR are performed using the 2020 CKD-EPI Study Refit equation without the race variable for the IDMS-Traceable creatinine methods. https://jasn.asnjournals.org/content/early/ASN.7730304 988 Performed By: #### 2 4321-2 #### LEA CORTÉS ([id number]) [facility] ([facility]) [address] [place] [address] 95921 Glucose [Mass/Vol] 97 mg/dL Normal 74-99 [facility] Comment on above: Performed By: #### 2 4321-2 #### LEA CORTÉS ([id number]) [facility] ([facility]) [address] [place] [address] 14372 Potassium [Moles/Vol] 4.6 mmol/L Normal 3.5-5.3 [facility] Comment on above: Performed By: #### 2 4321-2 #### LEA CORTÉS ([id number]) [facility] ([facility]) [address] [place] [address] 28869 Sodium [Moles/Vol] 134 mmol/L Low 136-145 [facility] Comment on above: Performed By: #### 2 4321-2 #### LEA CORTÉS ([id number]) [facility] ([facility]) [address] [place] [address] 13758 Urea nitrogen [Mass/Vol] 7 mg/dL Normal 6-23 [facility] Comment on above: Performed By: #### 2 4321-2 #### LEA CORTÉS ([id number]) [facility] ([facility]) [address] [place] [address] 86430 Bacteria identifiedon 2023 Bacteria identified Cx Nom (U) Test: Urine Culture Specimen Source: Clean Catch/Voided Specimen Type: Urine Specimen Date: 08/03/20241139 Result Date: 08/05/20241224 Result Status: Final result Abnormal: Yes Resulting Lab: [facility] [address] [facility] [address] CULTURE 20,000 - 80,000 Klebsiella pneumoniae/variicola (Abnormal) SUSCEPTIBILITY Klebsiella pneumoniae/variicola METHOD MICROSCAN ------- AMOXICILLIN/CLAVULAN ATE <=8/4 ug/ml Susceptible AMPICILLIN >16.000 ug/ml Resistant AMPICILLIN/SULBACTAM 8/4 ug/ml Susceptible CEFAZOLIN <=2 ug/ml Susceptible CEFAZOLIN (UNCOMPLICATED UTIS ONLY) <=2 ug/ml Susceptible CIPROFLOXACIN <=0.250 ug/ml Susceptible GENTAMICIN <=2.000 ug/ml Susceptible NITROFURANTOIN 64 ug/ml Intermediate PIPERACILLIN/TAZOBAC FOSTER <=8.000 ug/ml Susceptible TRIMETHOPRIM/SULFAME THOXAZOLE <=2/38 ug/ml Susceptible Abnormal [facility] Comment on above: Performed By: #### 6 30-4 #### LYNDSEY Oliva ([id number]) [facility] ([place] [address] CBC W Auto Differential pane l (Bld)on 08-03-2024 Basophils (Bld) [#/Vol] 0.08 10*3/uL [facility] Basophils/100 WBC (Bld) 1 % 0.0 - 2.0 % [facility] Eosinophils (Bld) [#/Vol] 0.21 10*3/uL [facility] Eosinophils/100 WBC (Bld) 2.7 % Normal 0.0-6.0 [facility] Comment on above: Performed By: #### 5 7021-8 #### LEA CORTÉS ([id number]) [facility] ([facility]) [address] [place] [address] 88684 Erythrocyte distribution width (RBC) [Ratio] 13.5 % Normal 11.5-14.5 [facility] Comment on above: Performed By: #### 5 7021-8 #### LEA CORTÉS ([id number]) [facility] ([facility]) [address] [place] [address] Hematocrit (Bld) [Volume fraction] 41.7 % Normal 36.0-46.0 [facility] Comment on above: Performed By: #### 5 7021-8 #### LEA CORTÉS ([id number]) [facility] ([facility]) [address] [place] [address] Hemoglobin (Bld) [Mass/Vol] 14.5 g/dL Normal 12.0-16.0 [facility] Comment on above: Performed By: #### 5 7021-8 #### LEA CORTÉS ([id number]) [facility] ([facility]) [address] [place] [address] Immature granulocytes (Bld) [#/Vol] 0.04 10*3/uL [facility] Immature granulocytes/100 WBC (Bld) 0.5 % Normal 0.0-0.9 [facility] Comment on above: Immature Granulocyte Count (IG) includes promyelocytes, myelocytes and metamyelocytes but does not include bands. Percent differential counts (%) should be interpreted in the context of the absolute cell counts (cells/UL). Result Comment: Zenia ture Granulocyte Count (IG) includes promyelocytes, myelocytes and metamyelocytes but does not include bands. Percent differential counts (%) should be interpreted in the context of the absolute cell counts (cells/UL). Performed By: #### 5 7021-8 #### LEA CORTÉS ([id number]) [facility] ([facility]) [address] [place], [place] [address] Lymphocytes (Bld) [#/Vol] 2.02 10*3/uL [facility] Lymphocytes/100 WBC (Bld) 25.9 % Normal 13.0-44.0 [facility] Comment on above: Performed By: #### 5 7021-8 #### LEA CORTÉS ([id number]) [facility] ([facility]) [address] [place], [place] [address] MCH (RBC) [Entitic mass] 31.9 pg Normal 26.0-34.0 [facility] Comment on above: Performed By: #### 5 7021-8 #### LEA CORTÉS ([id number]) [facility] ([facility]) [address] [place] [address] MCHC (RBC) [Mass/Vol] 34.8 g/dL Normal 32.0-36.0 [facility] Comment on above: Performed By: #### 5 7021-8 #### LEA CORTÉS ([id number]) [facility] ([facility]) [address] [place], [place] [address] MCV (RBC) [Entitic vol] 92 fL Normal 80-100 [facility] Comment on above: Performed By: #### 5 7021-8 #### LEA CORTÉS ([id number]) [facility] ([facility]) [address] [place] [address] Monocytes (Bld) [#/Vol] 0.54 10*3/uL [facility] Monocytes/100 WBC (Bld) 6.9 % Normal 2.0-10.0 [facility] Comment on above: Performed By: #### 5 7021-8 #### LEA COTRÉS ([id number]) [facility] ([facility]) [address] [place] [address] Neutrophils (Bld) [#/Vol] 4.92 10*3/uL [facility] Comment on above: Percent differential counts (%) should be interpreted in the context of the absolute cell counts (cells/uL). Neutrophils/100 WBC (Bld) 63 % 40.0 - 80.0 % [facility] Nucleated RBC/100 WBC (Bld) [Ratio] 0 % [facility] Platelets (Bld) [#/Vol] 255 10*3/uL [facility] RBC (Bld) [#/Vol] 4.55 10*6/uL [facility] WBC (Bld) [#/Vol] 7.8 10*3/uL [facility] Basophils (Bld) [#/Vol] 0.08 x10*3/uL Normal 0.00-0.10 [facility] Comment on above: Performed By: #### 5 7021-8 #### LEA CORTÉS ([id number]) [facility] ([facility]) [address] [place] [address] 69504 Basophils/100 WBC (Bld) 1.0 % Normal 0.0-2.0 [facility] Comment on above: Performed By: #### 5 7021-8 #### LEA CORTÉS ([id number]) [facility] ([facility]) [address] [place] [address] 20446 Eosinophils (Bld) [#/Vol] 0.21 x10*3/uL Normal 0.00-0.70 [facility] Comment on above: Performed By: #### 5 7021-8 #### LEA CORTÉS ([id number]) [facility] ([facility]) [address] [place] [address] 73407 Immature granulocytes (Bld) [#/Vol] 0.04 x10*3/uL Normal 0.00-0.70 [facility] Comment on above: Performed By: #### 5 7021-8 #### LEA CORTÉS ([id number]) [facility] ([facility]) [address] [place] [address] 88211 Lymphocytes (Bld) [#/Vol] 2.02 x10*3/uL Normal 1.20-4.80 [facility] Comment on above: Performed By: #### 5 7021-8 #### LEA CORTÉS ([id number]) [facility] ([facility]) [address] [place] [address] 47190 Monocytes (Bld) [#/Vol] 0.54 x10*3/uL Normal 0.10-1.00 [facility] Comment on above: Performed By: #### 5 7021-8 #### LEA CORTÉS ([id number]) [facility] ([facility]) [address] [place] [address] 32259 Neutrophils (Bld) [#/Vol] 4.92 x10*3/uL Normal 1.20-7.70 [facility] Comment on above: Result Comment: Perc ent differential counts (%) should be interpreted in the context of the absolute cell counts (cells/uL). Performed By: #### 5 7021-8 #### LEA CORTÉS ([id number]) [facility] ([facility]) [address] [place] [address] 34425 Neutrophils/100 WBC (Bld) 63.0 % Normal 40.0-80.0 [facility] Comment on above: Performed By: #### 5 7021-8 #### LEA CORTÉS ([id number]) [facility] ([facility]) [address] [place] [address] 29673 Nucleated RBC/100 WBC (Bld) [Ratio] 0.0 /100 WBCs Normal 0.0-0.0 [facility] Comment on above: Performed By: #### 5 7021-8 #### LEA CORTÉS ([id number]) [facility] ([facility]) [address] [place] [address] 09715 Platelets (Bld) [#/Vol] 255 x10*3/uL Normal 150-450 [facility] Comment on above: Performed By: #### 5 7021-8 #### LEA CORTÉS ([id number]) [facility] ([facility]) [address] [place] [address] 97230 RBC (Bld) [#/Vol] 4.55 x10*6/uL Normal 4.00-5.20 [facility] Comment on above: Performed By: #### 5 7021-8 #### LEA CORTÉS ([id number]) [facility] ([facility]) [address] [place] [address] 26029 WBC (Bld) [#/Vol] 7.8 x10*3/uL Normal 4.4-11.3 [facility] Comment on above: Performed By: #### 5 7021-8 #### LEA CORTÉS ([id number]) [facility] ([facility]) [address] [place] [address] LUMBAR SPINE WO IV CONTRA STon 08-03-2024 CT LUMBAR SPINE WO IV CONTRAST Interpreted By: Angel Lai, STUDY: CT LUMBAR SPINE WO IV CONTRAST; 08/03/2024 11:58 am INDICATION: Signs/Symptoms:Low back pain. COMPARISON: None. ACCESSION NUMBER(S): [id number] ORDERING CLINICIAN: ALY HESS TECHNIQUE: Thin section axial images were obtained from T11 down through the mid sacrum. Sagittal and coronal reconstruction images were generated. Soft tissue and bone windows were reviewed. FINDINGS: VERTEBRAL BODIES AND POSTERIOR ELEMENTS: There is grade 1 retrolisthesis of L2 over L3. Kvss-yr-mephtppr disc space narrowing with endplate spurring and vacuum disc phenomenon at L2-3. Mild disc space narrowing with endplate spurring and vacuum disc phenomenon at L3-4 with xsch-wz-vrjllugz changes at L4-5 and L5-S1. Mild disc space narrowing with endplate spurring at L1-2. There is multilevel interfacet hypertrophy with spur formation throughout the lumbar spine. There are mild sclerotic arthritic changes in the right SI joint. Slight lumbar levoscoliosis centered at L2-3. No compression fracture or posterior element fracture. No destructive bone lesion. On sagittal imaging, there is loss of the normal fat surrounding the exiting nerve roots on the right at L2-3 and L3-4 and on the left at L4-5. SPINAL CANAL: At T12-L1, there is no disc herniation or exiting nerve root compression. At L1-2, there is mild circumferential spinal stenosis caused by arthritic changes described in addition to posterior disc bulge. No gross exiting nerve root compression. At L2-3, there is circumferential spinal stenosis caused by the arthritic changes described in addition to ligamentum flavum hypertrophy and posterior disc bulge. There is suspected right-sided exiting nerve root compression. At L3-4, there is moderate circumferential spinal stenosis caused by the arthritic changes described in addition to ligamentum flavum hypertrophy and posterior disc bulge. There is apparent right-sided exiting nerve root compression. At L4-5, there is yjmq-oz-acqjfzdh circumferential spinal stenosis caused by the arthritic changes described in addition to posterior disc bulge and ligamentum flavum hypertrophy. There is apparent left-sided exiting nerve root compression. At L5-S1, there is no spinal stenosis or focal disc herniation. SOFT TISSUES: Within normal limits. ABDOMEN/PELVIS: Moderate distal aortoiliac calcifications. Moderate stool in the sigmoid. Sigmoid diverticulosis. IMPRESSION: Scoliosis and DJD in the lumbosacral spine as described. Please see above for details. No CT evidence of lumbar spine fracture in this exam. MACRO: None Signed by: Angel Lai 08/03/2024 1:06 PM Dictation workstation: [id number] [facility] CT Lumbar spine WO contrasto n 08-03-2024 Scoliosis and DJD in the lumbosacral spine as described. Please see above for details. No CT evidence of lumbar spine fracture in this exam. MACRO: None Signed by: Angel Lai 08/03/2024 1:06 PM Dictation workstation: [id number] [facility] Interpreted By: Angel Lai, STUDY: CT LUMBAR SPINE WO IV CONTRAST; 08/03/2024 11:58 am INDICATION: Signs/Symptoms:Low back pain. COMPARISON: None. ACCESSION NUMBER(S): [id number] ORDERING CLINICIAN: ALY HESS TECHNIQUE: Thin section axial images were obtained from T11 down through the mid sacrum. Sagittal and coronal reconstruction images were generated. Soft tissue and bone windows were reviewed. FINDINGS: VERTEBRAL BODIES AND POSTERIOR ELEMENTS: There is grade 1 retrolisthesis of L2 over L3. Kvgd-ic-uozzhzkc disc space narrowing with endplate spurring and vacuum disc phenomenon at L2-3. Mild disc space narrowing with endplate spurring and vacuum disc phenomenon at L3-4 with mivh-kp-dohrefzc changes at L4-5 and L5-S1. Mild disc space narrowing with endplate spurring at L1-2. There is multilevel interfacet hypertrophy with spur formation throughout the lumbar spine. There are mild sclerotic arthritic changes in the right SI joint. Slight lumbar levoscoliosis centered at L2-3. No compression fracture or posterior element fracture. No destructive bone lesion. On sagittal imaging, there is loss of the normal fat surrounding the exiting nerve roots on the right at L2-3 and L3-4 and on the left at L4-5. SPINAL CANAL: At T12-L1, there is no disc herniation or exiting nerve root compression. At L1-2, there is mild circumferential spinal stenosis caused by arthritic changes described in addition to posterior disc bulge. No gross exiting nerve root compression. At L2-3, there is circumferential spinal stenosis caused by the arthritic changes described in addition to ligamentum flavum hypertrophy and posterior disc bulge. There is suspected right-sided exiting nerve root compression. At L3-4, there is moderate circumferential spinal stenosis caused by the arthritic changes described in addition to ligamentum flavum hypertrophy and posterior disc bulge. There is apparent right-sided exiting nerve root compression. At L4-5, there is lyfr-ub-owtbygik circumferential spinal stenosis caused by the arthritic changes described in addition to posterior disc bulge and ligamentum flavum hypertrophy. There is apparent left-sided exiting nerve root compression. At L5-S1, there is no spinal stenosis or focal disc herniation. SOFT TISSUES: Within normal limits. ABDOMEN/PELVIS: Moderate distal aortoiliac calcifications. Moderate stool in the sigmoid. Sigmoid diverticulosis. MMODAL Angel Lai MD - 08/03/2024 Interpreted By: Angel Lai, STUDY: CT LUMBAR SPINE WO IV CONTRAST; 08/03/2024 11:58 am INDICATION: Signs/Symptoms:Low back pain. COMPARISON: None. ACCESSION NUMBER(S): [id number] ORDERING CLINICIAN: ALY HESS TECHNIQUE: Thin section axial images were obtained from T11 down through the mid sacrum. Sagittal and coronal reconstruction images were generated. Soft tissue and bone windows were reviewed. FINDINGS: VERTEBRAL BODIES AND POSTERIOR ELEMENTS: There is grade 1 retrolisthesis of L2 over L3. Libk-ce-zdrcsjoy disc space narrowing with endplate spurring and vacuum disc phenomenon at L2-3. Mild disc space narrowing with endplate spurring and vacuum disc phenomenon at L3-4 with zefr-rf-aqgjnihf changes at L4-5 and L5-S1. Mild disc space narrowing with endplate spurring at L1-2. There is multilevel interfacet hypertrophy with spur formation throughout the lumbar spine. There are mild sclerotic arthritic changes in the right SI joint. Slight lumbar levoscoliosis centered at L2-3. No compression fracture or posterior element fracture. No destructive bone lesion. On sagittal imaging, there is loss of the normal fat surrounding the exiting nerve roots on the right at L2-3 and L3-4 and on the left at L4-5. SPINAL CANAL: At T12-L1, there is no disc herniation or exiting nerve root compression. At L1-2, there is mild circumferential spinal stenosis caused by arthritic changes described in addition to posterior disc bulge. No gross exiting nerve root compression. At L2-3, there is circumferential spinal stenosis caused by the arthritic changes described in addition to ligamentum flavum hypertrophy and posterior disc bulge. There is suspected right-sided exiting nerve root compression. At L3-4, there is moderate circumferential spinal stenosis caused by the arthritic changes described in addition to ligamentum flavum hypertrophy and posterior disc bulge. There is apparent right-sided exiting nerve root compression. At L4-5, there is aegq-ee-qyevgaeu circumferential spinal stenosis caused by the arthritic changes described in addition to posterior disc bulge and ligamentum flavum hypertrophy. There is apparent left-sided exiting nerve root compression. At L5-S1, there is no spinal stenosis or focal disc herniation. SOFT TISSUES: Within normal limits. ABDOMEN/PELVIS: Moderate distal aortoiliac calcifications. Moderate stool in the sigmoid. Sigmoid diverticulosis. IMPRESSION: Scoliosis and DJD in the lumbosacral spine as described. Please see above for details. No CT evidence of lumbar spine fracture in this exam. MACRO: None Signed by: Angel Lai 08/03/2024 1:06 PM Dictation workstation: [id number] [facility] Work Phone: Radiology Study observation (narrative) [facility] Work Phone: CT Lumbar spine WO contrastO rdered By: Angel Lai on 08-03-2024 [facility] Work Phone: Comprehensive metabolic 2000 panelon 08-03-2024 Albumin BCP dye [Mass/Vol] 4.1 g/dL Normal 3.4-5.0 [facility] Comment on above: Performed By: #### 2 4323-8 #### LEA CORTÉS ([id number]) [facility] ([facility]) [address] [place] [address] 98438 ALP [Catalytic activity/Vol] 71 U/L Normal 33-136 [facility] Comment on above: Performed By: #### 2 4323-8 #### LEA CORTÉS ([id number]) [facility] ([facility]) [address] [place] [address] 92484 ALT With P-5'-P [Catalytic activity/Vol] 14 U/L Normal 7-45 [facility] Comment on above: Patients treated wit h Sulfasalazine may generate falsely decreased results for ALT. Result Comment: Mirna ents treated with Sulfasalazine may generate falsely decreased results for ALT. Performed By: #### 2 4322-8 #### LEA CORTÉS ([id number]) [facility] ([facility]) [address] [place] [address] Anion gap [Moles/Vol] 11 mmol/L Normal 10-20 [facility] Comment on above: Performed By: #### 2 4323-8 #### LEA CORTÉS ([id number]) [facility] ([facility]) [address] [place] [address] AST With P-5'-P [Catalytic activity/Vol] 16 U/L Normal 9-39 [facility] Comment on above: Performed By: #### 2 4322-8 #### LEA CORTÉS ([id number]) [facility] ([facility]) [address] [place] [address] 80276 Bilirubin [Mass/Vol] 0.7 mg/dL Normal 0.0-1.2 [facility] Comment on above: Performed By: #### 2 4322-8 #### LEA CORTÉS ([id number]) [facility] ([facility]) [address] [place] [address] Calcium [Mass/Vol] 9.1 mg/dL Normal 8.6-10.3 [facility] Comment on above: Performed By: #### 2 4322-8 #### LEA CORTÉS ([id number]) [facility] ([facility]) [address] [place] [address] Chloride [Moles/Vol] 91 mmol/L Low 98-107 [facility] Comment on above: Performed By: #### 2 4322-8 #### LEA CORTÉS ([id number]) [facility] ([facility]) [address] [place] [address] CO2 [Moles/Vol] 29 mmol/L Normal 21-32 [facility] [facility] Comment on above: Performed By: #### 2 4322-8 #### LEA CORTÉS ([id number]) [facility] ([facility]) [address] [place] [address] Creatinine [Mass/Vol] 0.54 mg/dL Normal 0.50-1.05 [facility] Comment on above: Performed By: #### 2 4323-8 #### LEA CORTÉS ([id number]) [facility] ([facility]) [address] [place] [address] eGFR - PINF [facility] Comment on above: Calculations of aubree mated GFR are performed using the 2020 CKD-EPI Study Refit equation without the race variable for the IDMS-Traceable creatinine methods. https://jasn.asnjournals.org/content/early//ASN.7104728 988 Glucose [Mass/Vol] 113 mg/dL High 74-99 [facility] Comment on above: Performed By: #### 2 4323-8 #### LEA CORTÉS ([id number]) [facility] ([facility]) [address] [place] [address] Interpretation and review of laboratory results Abnormal [facility] Potassium [Moles/Vol] 4 mmol/L 3.5 - 5.3 mmol/L [facility] Protein [Mass/Vol] 6.6 g/dL Normal 6.4-8.2 [facility] Comment on above: Performed By: #### 2 4323-8 #### LEA CORTÉS ([id number]) [facility] ([facility]) [address] [place] [address] Sodium [Moles/Vol] 127 mmol/L Low 136-145 [facility] Comment on above: Confirmed by repeat analysis Result Comment: Conf irmed by repeat analysis Performed By: #### 2 4323-8 #### LEA CORTÉS ([id number]) [facility] ([facility]) [address] [place] [address] Urea nitrogen [Mass/Vol] 9 mg/dL Normal 6-23 [facility] Comment on above: Performed By: #### 2 4323-8 #### LEA CORTÉS ([id number]) [facility] ([facility]) [address] [place] [address] GFR/1.73 sq M.predicted MDRD (S/P/Bld) [Vol rate/Area] mL/min/{1.73_m2} Normal >60 [facility] Comment on above: Result Comment: Calc ulations of estimated GFR are performed using the 2020 CKD-EPI Study Refit equation without the race variable for the IDMS-Traceable creatinine methods. https://jasn.asnjournals.org/content/early/ASN.1609492 988 Performed By: #### 2 4323-8 #### LEA CORTÉS ([id number]) [facility] ([facility]) [address] [place] [address] Potassium [Moles/Vol] 4.0 mmol/L Normal 3.5-5.3 [facility] Comment on above: Performed By: #### 2 4323-8 #### LEA CORTÉS ([id number]) [facility] ([facility]) [address] [place] [address] ECG 12-LEADon 08-03-2024 ECG 12-LEAD Ventricular Rate 82 Atrial Rate 82 P-R Interval 178 QRS Duration 102 Q-T Interval 378 QTC Calculation(Bazett) 441 P [place] 65 R [place] 38 T [place] 70 QRS Count 13 Q Onset 223 P Onset 134 P Offset 198 T Offset 412 QTC Fredericia 419 Diagnosis Normal sinus rhythm with sinus arrhythmia Incomplete right bundle branch block Septal infarct , age undetermined Abnormal ECG No previous ECGs available See ED provider note for full interpretation and clinical correlation Confirmed by Elieser Avila ([id number]) on 08/06/2024 9:20:32 AM Normal [facility] Laboratory - Chemistry and C hemistry - challengeon 08-03-2024 Tropinin I.cardiac panel High sensitivity method 4 ng/L Normal 0-13 [facility] Comment on above: Order Comment: Less than 99th percentile of normal range cutoff- Female and children under 18 years old <14 ng/L; Male <21 ng/L: Negative Repeat testing should be performed if clinically indicated. Female and children under 18 years old 14-50 ng/L; Male 21-50 ng/L: Consistent with possible cardiac damage and possible increased clinical risk. Serial measurements may help to assess extent of myocardial damage. >50 ng/L: Consistent with cardiac damage, increased clinical risk and myocardial infarction. Serial measurements may help assess extent of myocardial damage. NOTE: Children less than 1 year old may have higher baseline troponin levels and results should be interpreted in conjunction with the overall clinical context. NOTE: Troponin I testing is performed using a different testing methodology at [facility] than at other [facility]. Direct result comparisons should only be made within the same method. Performed By: #### 8 9577-1 #### LEA CORTÉS ([id number]) [facility] ([facility]) [facility] [place] [address] Lactate [Moles/Vol] 1.3 mmol/L Normal 0.4-2.0 [facility] Comment on above: Order Comment: Venip uncture immediately after or during the administration of Metamizole may lead to falsely low results. Testing should be performed immediately prior to Metamizole dosing. Performed By: #### 2 524-7 #### LEA CORTÉS ([id number]) [facility] ([facility]) [facility] [place] [address] Lactate [Moles/Vol]on 2023 Interpretation and review of laboratory results Normal [facility] Venipuncture immediately after or during the administration of Metamizole may lead to falsely low results. Testing should be performed immediately prior to Metamizole dosing. [facility] No Panel Informationon 08-03 Interpretation and review of laboratory results Abnormal [facility] Tropinin I.cardiac panel Hig h sensitivity methodon 08-03-2024 Interpretation and review of laboratory results Normal [facility] Less than 99th percentile of normal range cutoff- Female and children under 18 years old <14 ng/L; Male <21 ng/L: Negative Repeat testing should be performed if clinically indicated. Female and children under 18 years old 14-50 ng/L; Male 21-50 ng/L: Consistent with possible cardiac damage and possible increased clinical risk. Serial measurements may help to assess extent of myocardial damage. >50 ng/L: Consistent with cardiac damage, increased clinical risk and myocardial infarction. Serial measurements may help assess extent of myocardial damage. NOTE: Children less than 1 year old may have higher baseline troponin levels and results should be interpreted in conjunction with the overall clinical context. NOTE: Troponin I testing is performed using a different testing methodology at [facility] than at other [facility]. Direct result comparisons should only be made within the same method. [facility] Troponin I.cardiac panelon 1 10-03-2023 Tropinin I.cardiac panel High sensitivity method 4 ng/L Normal 0-13 [facility] Comment on above: Order Comment: Less than 99th percentile of normal range cutoff- Female and children under 18 years old <14 ng/L; Male <21 ng/L: Negative Repeat testing should be performed if clinically indicated. Female and children under 18 years old 14-50 ng/L; Male 21-50 ng/L: Consistent with possible cardiac damage and possible increased clinical risk. Serial measurements may help to assess extent of myocardial damage. >50 ng/L: Consistent with cardiac damage, increased clinical risk and myocardial infarction. Serial measurements may help assess extent of myocardial damage. NOTE: Children less than 1 year old may have higher baseline troponin levels and results should be interpreted in conjunction with the overall clinical context. NOTE: Troponin I testing is performed using a different testing methodology at [facility] than at [facility]. Direct result comparisons should only be made within the same method. Performed By: #### 8 9577-1 #### TATE MILANA ([id number]) [facility] ([facility]) [address] [place] [address] Urinalysis complete W Reflex Culture panel (U)on 08-03-2024 Appearance (U) Clear Clear [facility] Bilirubin (U) [Mass/Vol] Negative NEGATIVE [facility] Color (U) Light-Yellow Light-Yellow, Yellow, Dark-Yellow [facility] Glucose Auto test strip (U) [Mass/Vol] Normal Normal mg/dL [facility] Ketones (U) [Mass/Vol] Negative NEGATIVE mg/dL [facility] Leukocyte esterase Auto test strip Ql (U) 75 Carlos/ L Abnormal NEGATIVE [facility] Nitrite Auto test strip Ql (U) Negative NEGATIVE [facility] pH (U) 6.5 [pH] 5.0, 5.5, 6.0, 6.5, 7.0, 7.5, 8.0 [facility] Protein (U) [Mass/Vol] 70 (1+) Abnormal NEGATIVE, 10 (TRACE), 20 (TRACE) mg/dL [facility] RBC (U) [#/Vol] 0.2 (2+) Abnormal NEGATIVE [facility] Specific gravity (U) [Rel density] 1.009 1.005 - 1.035 [facility] Urobilinogen (U) [Mass/Vol] Normal Normal mg/dL [facility] Appearance (U) Clear Normal Clear [facility] Comment on above: Performed By: #### 5 8077-9 #### LEA CORTÉS ([id number]) [facility] ([facility]) [address] [place] [address] Bilirubin (U) [Mass/Vol] Negative Normal NEGATIVE [facility] Comment on above: Performed By: #### 5 8077-9 #### LEA CORTÉS ([id number]) [facility] ([facility]) [address] [place] [address] Color (U) Light-Yellow Normal Light-Yellow, Yellow, Dark-Yellow [facility] Comment on above: Performed By: #### 5 8077-9 #### LEA CORTÉS ([id number]) [facility] ([facility]) [address] [place] [address] Glucose Auto test strip (U) [Mass/Vol] Normal Normal Normal [facility] Comment on above: Performed By: #### 5 8077-9 #### LEA CORTÉS ([id number]) [facility] ([facility]) [address] [place], [place] [address] Ketones (U) [Mass/Vol] Negative Normal NEGATIVE [facility] Comment on above: Performed By: #### 5 8077-9 #### LEA CORTÉS ([id number]) [facility] ([facility]) [address] [place], [place] [address] Leukocyte esterase Auto test strip Ql (U) 75 Carlos/???L Abnormal NEGATIVE [facility] Comment on above: Performed By: #### 5 8077-9 #### LEA CORTÉS ([id number]) [facility] ([facility]) [address] [place], [place] [address] Nitrite Auto test strip Ql (U) Negative Normal NEGATIVE [facility] Comment on above: Performed By: #### 5 8077-9 #### LEA CORTÉS ([id number]) [facility] ([facility]) [address] [place] [address] pH (U) 6.5 [pH] Normal 5.0, 5.5, 6.0, 6.5, 7.0, 7.5, 8.0 [facility] Comment on above: Performed By: #### 5 8077-9 #### LEA CORTÉS ([id number]) [facility] ([facility]) [address] [place] [address] Protein (U) [Mass/Vol] 70 (1+) Abnormal NEGATIVE, 10 (TRACE), 20 (TRACE) [facility] Comment on above: Performed By: #### 5 8077-9 #### LEA CORTÉS ([id number]) [facility] ([facility]) [address] [place] [address] RBC (U) [#/Vol] 0.2 (2+) Abnormal NEGATIVE [facility] Comment on above: Performed By: #### 5 8077-9 #### LEA CORTÉS ([id number]) [facility] ([facility]) [address] [place] [address] Specific gravity (U) [Rel density] 1.009 Normal 1.005-1.035 [facility] Comment on above: Performed By: #### 5 8077-9 #### LEA CORTÉS ([id number]) [facility] ([facility]) [address] [place] [address] Urobilinogen (U) [Mass/Vol] Normal Normal Normal [facility] Comment on above: Performed By: #### 5 8077-9 #### LEA CORTÉS ([id number]) [facility] ([facility]) [address] [place] [address] Urinalysis microscopic panel Auto Ql (U)on 08-03-2024 Bacteria Auto (Urine sed) [#/Area] 1+ Abnormal NONE SEEN /HPF [facility] Epithelial cells.squamous Auto (Urine sed) [#/Area] 1-9 (SPARSE) Reference range not established. /HPF [facility] Mucus Auto (Urine sed) [#/Area] FEW Reference range not established. /LPF [facility] RBC Auto (Urine sed) [#/Area] 11-20 Abnormal NONE, 1-2, 3-5 /HPF [facility] WBC Auto (Urine sed) [#/Area] 11-20 Abnormal 1-5, NONE /HPF [facility] Bacteria Auto (Urine sed) [#/Area] 1+ /HPF Abnormal NONE SEEN [facility] Comment on above: Performed By: #### 5 3315-8 #### LEA CORTÉS ([id number]) [facility] ([facility]) [address] [place] [address] Epithelial cells.squamous Auto (Urine sed) [#/Area] 1-9 (SPARSE) Normal Reference range not established. [facility] Comment on above: Performed By: #### 5 5135-8 #### LEA CORTÉS ([id number]) [facility] ([facility]) [address] [place] [address] 24297 Mucus Auto (Urine sed) [#/Area] FEW Normal Reference range not established. [facility] Comment on above: Performed By: #### 5 3315-8 #### LEA CORTÉS ([id number]) [facility] ([facility]) [address] [place] [address] 10609 RBC Auto (Urine sed) [#/Area] 11-20 Abnormal NONE, 1-2, 3-5 [facility] Comment on above: Performed By: #### 5 5-8 #### LEA CORTÉS ([id number]) [facility] ([facility]) [address] [place] [address] 39355 WBC Auto (Urine sed) [#/Area] 11-20 Abnormal 1-5, NONE [facility] Comment on above: Performed By: #### 5 3315-8 #### LEA CORTÉS ([id number]) [facility] ([facility]) [address] [place] [address]13[address] Albumin/Creatinineon 024 Albumin/Creatinine DL <= 20 mg/L (U) [Mass ratio] 1142.2 ug/mg Creat High <30.0 [facility] Comment on above: Performed By: #### 1 4959-1 #### LYNDSEY Oliva ([id number]) [facility] ([facility]) [address] [place] [address] Albumin/Creatinine DL <= 20 mg/L (U) [Mass ratio]on 05-25-2024 Albumin DL <= 20 mg/L (U) [Mass/Vol] 1514.6 mg/L Normal Not established [facility] Comment on above: Performed By: #### 1 4959-1 #### LYNDSEY Oliva ([id number]) [facility] ([facility]) [address] [place] [address] Creatinine (U) [Mass/Vol] 132.6 mg/dL Normal 20.0-320.0 [facility] Comment on above: Performed By: #### 1 4959-1 #### LYNDSEY Oliva ([id number]) [facility] ([facility]) [address] [place] [address] 49[address] CBC panel Auto (Bld)on 05-25 Erythrocyte distribution width (RBC) [Ratio] 14.0 % Normal 11.5-14.5 [facility] Comment on above: Performed By: #### 5 8410-2 #### LEA CORTÉS ([id number]) [facility] ([facility]) [address] [place] [address] 947[address] Hematocrit (Bld) [Volume fraction] 46.0 % Normal 36.0-46.0 [facility] Comment on above: Performed By: #### 5 8410-2 #### LEA CORTÉS ([id number]) [facility] ([facility]) [address] [place] [address] 20346 Hemoglobin (Bld) [Mass/Vol] 15.5 g/dL Normal 12.0-16.0 [facility] Comment on above: Performed By: #### 5 8410-2 #### LEA CORTÉS ([id number]) [facility] ([facility]) [address] [place] [address] 53427 MCH (RBC) [Entitic mass] 31.8 pg Normal 26.0-34.0 [facility] Comment on above: Performed By: #### 5 8410-2 #### LEA CORTÉS ([id number]) [facility] ([facility]) [address] [place] [address] 29808 MCHC (RBC) [Mass/Vol] 33.7 g/dL Normal 32.0-36.0 [facility] Comment on above: Performed By: #### 5 8410-2 #### LEA CORTÉS ([id number]) [facility] ([facility]) [address] [place] [address] 71848 MCV (RBC) [Entitic vol] 95 fL Normal 80-100 [facility] Comment on above: Performed By: #### 5 8410-2 #### LEA CORTÉS ([id number]) [facility] ([facility]) [address] [place] [address] 06429 Nucleated RBC/100 WBC (Bld) [Ratio] 0.0 /100 WBCs Normal 0.0-0.0 [facility] Comment on above: Performed By: #### 5 8410-2 #### LEA CORTÉS ([id number]) [facility] ([facility]) [address] [place] [address] 48498 Platelets (Bld) [#/Vol] 376 x10*3/uL Normal 150-450 [facility] Comment on above: Performed By: #### 5 8410-2 #### LEA CORTÉS ([id number]) [facility] ([facility]) [address] [place] [address] 97991 RBC (Bld) [#/Vol] 4.87 x10*6/uL Normal 4.00-5.20 [facility] Comment on above: Performed By: #### 5 8410-2 #### LEA CORTÉS ([id number]) [facility] ([facility]) [address] [place] [address] 39419 WBC (Bld) [#/Vol] 10.4 x10*3/uL Normal 4.4-11.3 [facility] Comment on above: Performed By: #### 5 8410-2 #### LEA CORTÉS ([id number]) [facility] ([facility]) [address] [place] [address] Comprehensive metabolic 2000 panelon 05-25-2024 Albumin BCP dye [Mass/Vol] 4.2 g/dL Normal 3.4-5.0 [facility] Comment on above: Performed By: #### 2 4323-8 #### LEA CORTÉS ([id number]) [facility] ([facility]) [address] [place] [address] 62531 ALP [Catalytic activity/Vol] 77 U/L Normal 33-136 [facility] Comment on above: Performed By: #### 2 4323-8 #### LEA CORTÉS ([id number]) [facility] ([facility]) [address] [place] [address] 36174 ALT With P-5'-P [Catalytic activity/Vol] 19 U/L Normal 7-45 [facility] Comment on above: Result Comment: Mirna ents treated with Sulfasalazine may generate falsely decreased results for ALT. Performed By: #### 2 4323-8 #### LEA CORTÉS ([id number]) [facility] ([facility]) [address] [place] [address] 06190 Anion gap [Moles/Vol] 14 mmol/L Normal 10-20 [facility] Comment on above: Performed By: #### 2 4323-8 #### LEA CORTÉS ([id number]) [facility] ([facility]) [address] [place] [address] 94514 AST With P-5'-P [Catalytic activity/Vol] 18 U/L Normal 9-39 [facility] Comment on above: Performed By: #### 2 4323-8 #### LEA CORTÉS ([id number]) [facility] ([facility]) [address] [place] [address] 35789 Bilirubin [Mass/Vol] 0.8 mg/dL Normal 0.0-1.2 [facility] Comment on above: Performed By: #### 2 4323-8 #### LEA CORTÉS ([id number]) [facility] ([facility]) [facility] [place] [address] Calcium [Mass/Vol] 9.1 mg/dL Normal 8.6-10.3 [facility] Comment on above: Performed By: #### 2 4323-8 #### LEA CORTÉS ([id number]) [facility] ([facility]) [address] [place] [address] 43396 Chloride [Moles/Vol] 93 mmol/L Low 98-107 [facility] Comment on above: Performed By: #### 2 4323-8 #### LEA CORTÉS ([id number]) [facility] ([facility]) [address] [place] [address] 48413 CO2 [Moles/Vol] 26 mmol/L Normal 21-32 [facility] Comment on above: Performed By: #### 2 4323-8 #### LEA CORTSÉ ([id number]) [facility] ([facility]) [address] [place] [address] 12425 Creatinine [Mass/Vol] 0.81 mg/dL Normal 0.50-1.05 [facility] Comment on above: Performed By: #### 2 4323-8 #### LEA CORTÉS ([id number]) [facility] ([facility]) [address] [place] [address] 38480 Glomerular filtration rate/1.73 sq M.predicted 78 mL/min/1.73m*2 Normal >60 [facility] Comment on above: Result Comment: Calc ulations of estimated GFR are performed using the 2020 CKD-EPI Study Refit equation without the race variable for the IDMS-Traceable creatinine methods. https://jasn.asnjournals.org/content//ASN.4141270 988 Performed By: #### 2 4323-8 #### LEA CORTÉS ([id number]) [facility] ([facility]) [address] [place] [address] 97235 Glucose [Mass/Vol] 128 mg/dL High 74-99 [facility] Comment on above: Performed By: #### 2 4323-8 #### LEA CORTÉS ([id number]) [facility] ([facility]) [address] [place] [address] 11521 Potassium [Moles/Vol] 4.5 mmol/L Normal 3.5-5.3 [facility] Comment on above: Performed By: #### 2 4323-8 #### LEA CORTÉS ([id number]) [facility] ([facility]) [address] [place] [address] 17737 Protein [Mass/Vol] 6.4 g/dL Normal 6.4-8.2 [facility] Comment on above: Performed By: #### 2 4323-8 #### LEA CORTÉS ([id number]) [facility] ([facility]) [address] [place] [address] 87914 Sodium [Moles/Vol] 128 mmol/L Low 136-145 [facility] Comment on above: Result Comment: Conf irmed by repeat analysis Performed By: #### 2 4323-8 #### LEA CORTÉS ([id number]) [facility] ([facility]) [address] [place] [address] 63451 Urea nitrogen [Mass/Vol] 12 mg/dL Normal 6-23 [facility] Comment on above: Performed By: #### 2 4323-8 #### LEA CORTÉS ([id number]) [facility] ([facility]) [address] [place] [address] 98427 HbA1c (Bld) [Mass fraction]o n 05-25-2024 Average glucose Estimated from glycated hemoglobin (Bld) [Mass/Vol] 154 mg/dL Normal Not Established [facility] Comment on above: Order Comment: Diagn osis of Diabetes-Adults Non-Diabetic: < or = 5.6% Increased risk for developing diabetes: 5.7-6.4% Diagnostic of diabetes: > or = 6.5% Performed By: #### 4 548-4 #### LYNDSEY Oliva ([id number]) [facility] ([facility]) [id number] [place] [address] 26691 Hemoglobin A1c/Hemoglobin.to scott 05-25-2024 HbA1c (Bld) [Mass fraction] 7.0 % High see below [facility] Comment on above: Order Comment: Diagn osis of Diabetes-Adults Non-Diabetic: < or = 5.6% Increased risk for developing diabetes: 5.7-6.4% Diagnostic of diabetes: > or = 6.5% Performed By: #### 4 548-4 #### LYNDSEY Oliva ([id number]) [facility] ([facility]) [id number] [place] [address] Lipid 1996 panelon 4 Cholesterol [Mass/Vol] 181 mg/dL Normal 0-199 [facility] Comment on above: Result Comment: Age Desirable Borderline High High 0-19 Y 0 - 169 170 - 199 >/= 200 20-24 Y 0 - 189 190 - 224 >/= 225 >24 Y 0 - 199 200 - 239 >/= 240 All ranges are based on fasting samples. Specific therapeutic targets will vary based on patient-specific cardiac risk. Pediatric guidelines reference:Pediatrics 2011, 128(S5).Adult guidelines reference: NCEP ATPIII Guidelines,FRANCINE 2001, 258:2486-97 Venipuncture immediately after or during the administration of Metamizole may lead to falsely low results. Testing should be performed immediately prior to Metamizole dosing. Performed By: #### 2 4331-1 #### LEA CORTÉS ([id number]) [facility] ([facility]) [facility] [place] [address] Cholesterol in HDL [Mass/Vol] 66.0 mg/dL Normal [facility] Comment on above: Result Comment: Age Very Low Low Normal High 0-19 Y < 35 < 40 40-45 ---- 20-24 Y ---- < 40 >45 ---- >24 Y ---- < 40 40-60 >60 Performed By: #### 2 4331-1 #### LEA CORTÉS ([id number]) [facility] ([facility]) [address] [place] [address] Cholesterol in LDL [Mass/Vol] 64 mg/dL Normal <=99 [facility] Comment on above: Result Comment: Near Borderline AGE Desirable Optimal High High Very High 0-19 Y 0 - 109 --- 110-129 >/= 130 ---- 20-24 Y 0 - 119 --- 120-159 >/= 160 ---- >24 Y 0 - 99 100-129 130-159 160-189 >/=190 Performed By: #### 2 4331-1 #### LEA CORTÉS ([id number]) [facility] ([facility]) [address] [place] [address] Cholesterol in VLDL [Mass/Vol] 51 mg/dL High 0-40 [facility] Comment on above: Performed By: #### 2 4331-1 #### LEA CORTÉS ([id number]) [facility] ([facility]) [address] [place] [address] CHOLESTEROL/HDL RATIO 2.7 Normal [facility] Comment on above: Result Comment: Ref Values Desirable < 3.4 High Risk > 5.0 Performed By: #### 2 4331-1 #### LEA CORTÉS ([id number]) [facility] ([facility]) [address] [place] [address]65 NON HDL CHOLESTEROL 115 mg/dL Normal 0-149 [facility] Comment on above: Result Comment: Age Desirable Borderline High High Very High 0-19 Y 0 - 119 120 - 144 >/= 145 >/= 160 20-24 Y 0 - 149 150 - 189 >/= 190 ---- >24 Y 30 mg/dL above LDL Cholesterol goal Performed By: #### 2 4331-1 #### LEA CORTÉS ([id number]) [facility] ([facility]) [address] [place] [id number] Triglyceride [Mass/Vol] 256 mg/dL High 0-149 [facility] Comment on above: Result Comment: Age Desirable Borderline High High Very High 0 D-90 D 19 - 174 ---- ---- ---- 91 D- 9 Y 0 - 74 75 - 99 >/= 100 ---- 10-19 Y 0 - 89 90 - 129 >/= 130 ---- 20-24 Y 0 - 114 115 - 149 >/= 150 ---- >24 Y 0 - 149 150 - 199 200- 499 >/= 500 Venipuncture immediately after or during the administration of Metamizole may lead to falsely low results. Testing should be performed immediately prior to Metamizole dosing. Performed By: #### 2 4331-1 #### LEA CORTÉS ([id number]) [facility] ([facility]) [facility] [place] [address] Thyrotropinon 05-25-2024 TSH Qn 3.94 m[IU]/L Normal 0.44-3.98 [facility] Comment on above: Order Comment: TSH t esting is performed using different testing methodology at [facility] than at other [facility]. Direct result comparisons should only be made within the same method. Performed By: #### 3 016-3 #### LEA CORTÉS ([id number]) [facility] ([facility]) [address] [place] [address] Chest for screeningon 1. Few small bilateral noncalcified pulmonary nodules measuring up to 4 mm, likely benign. Continued screening with low-dose noncontrast chest CT in 12 months (from current date) is recommended. 2. Mild apical emphysema. LUNG RADS CATEGORY: Lung Rad: Lung-RADS 2 (Benign Appearance or Indolent Behavior) Recommendation: Continue annual screening with Low Dose Chest CT in 12 months, recommended as per [employer] Guidelines Lung-RADS Version 2022. MACRO: None Signed by: Evan Park 09/08/2023 5:13 PM Dictation workstation: [id number] [facility] Interpreted By: Evan Park, STUDY: CT LUNG SCREENING LOW DOSE; 09/08/2023 9:05 am INDICATION: Signs/Symptoms:scr. COMPARISON: CT dated 08/20/2022 ACCESSION NUMBER(S): [id number] ORDERING CLINICIAN: GANGA TAY TECHNIQUE: Helical data acquisition of the chest was obtained without IV contrast material. Images were reformatted in axial, coronal, and sagittal planes. FINDINGS: LUNGS AND AIRWAYS: The trachea and central airways are patent. No endobronchial lesion is seen. There is minimal bilateral upper lung predominant centrilobular and paraseptal emphysema.Linear opacity in the right lower lobe likely represents atelectasis.There is no focal consolidation, pleural effusion, or pneumothorax. There are few bilateral noncalcified pulmonary nodules seen. For example,there is a 4 mm nodule in the right upper lobe on series 8, image 85; 3 mm nodule in the right upper lobe on image 123; and additional 4 mm nodule on image 190 stable oblong nodule adjacent to a pulmonary vessel within the right middle lobe on series 8, image 196. MEDIASTINUM AND CHENTE, LOWER NECK AND AXILLA: Thyroid gland is not well visualized. Stable clip versus calcification along the region of the right thyroid bed. No evidence of thoracic lymphadenopathy by CT criteria. Esophagus appears within normal limits as seen. HEART AND VESSELS: The thoracic aorta normal in course and caliber.There is mild scattered calcified atherosclerosis present. Main pulmonary artery and its branches are normal in caliber. No coronary artery calcifications are seen. Please note, the study is not optimized for evaluation of coronary arteries. The cardiac chambers are not enlarged. There is no pericardial effusion seen. UPPER ABDOMEN: The visualized subdiaphragmatic structures demonstrate no remarkable findings. CHEST WALL AND OSSEOUS STRUCTURES: Chest wall is within normal limits. No acute osseous pathology.There are no suspicious osseous lesions. [facility] Evan Park MD - 09/08/2023 Interpreted By: Evan Park, STUDY: CT LUNG SCREENING LOW DOSE; 09/08/2023 9:05 am INDICATION: Signs/Symptoms:scr. COMPARISON: CT dated 08/20/2022 ACCESSION NUMBER(S): [id number] ORDERING CLINICIAN: GANGA TAY TECHNIQUE: Helical data acquisition of the chest was obtained without IV contrast material. Images were reformatted in axial, coronal, and sagittal planes. FINDINGS: LUNGS AND AIRWAYS: The trachea and central airways are patent. No endobronchial lesion is seen. There is minimal bilateral upper lung predominant centrilobular and paraseptal emphysema.Linear opacity in the right lower lobe likely represents atelectasis.There is no focal consolidation, pleural effusion, or pneumothorax. There are few bilateral noncalcified pulmonary nodules seen. For example,there is a 4 mm nodule in the right upper lobe on series 8, image 85; 3 mm nodule in the right upper lobe on image 123; and additional 4 mm nodule on image 190 stable oblong nodule adjacent to a pulmonary vessel within the right middle lobe on series 8, image 196. MEDIASTINUM AND CHENTE, LOWER NECK AND AXILLA: Thyroid gland is not well visualized. Stable clip versus calcification along the region of the right thyroid bed. No evidence of thoracic lymphadenopathy by CT criteria. Esophagus appears within normal limits as seen. HEART AND VESSELS: The thoracic aorta normal in course and caliber.There is mild scattered calcified atherosclerosis present. Main pulmonary artery and its branches are normal in caliber. No coronary artery calcifications are seen. Please note, the study is not optimized for evaluation of coronary arteries. The cardiac chambers are not enlarged. There is no pericardial effusion seen. UPPER ABDOMEN: The visualized subdiaphragmatic structures demonstrate no remarkable findings. CHEST WALL AND OSSEOUS STRUCTURES: Chest wall is within normal limits. No acute osseous pathology.There are no suspicious osseous lesions. IMPRESSION: 1. Few small bilateral noncalcified pulmonary nodules measuring up to 4 mm, likely benign. Continued screening with low-dose noncontrast chest CT in 12 months (from current date) is recommended. 2. Mild apical emphysema. LUNG RADS CATEGORY: Lung Rad: Lung-RADS 2 (Benign Appearance or Indolent Behavior) Recommendation: Continue annual screening with Low Dose Chest CT in 12 months, recommended as per [employer] Guidelines Lung-RADS Version 2022. MACRO: None Signed by: Evan Park 09/08/2023 5:13 PM Dictation workstation: [id number] [facility] Work Phone: Radiology Study observation (narrative) [facility] Work Phone: CT Chest for screeningOrdere d By: Evan Park on 09-08-2023 [facility] Work Phone: Office Visit (Primary Care T xt/Forms)on 11-05-2022 Follow-up visit Diagnoses/Problems Assessed Insomnia, unspecified type (780.52) (G47.00) Class 1 obesity with body mass index (BMI) of 32.0 to 32.9 in adult (278.00,V85.32) (E66.9,Z68.32) Orders Encounter for immunization Temporarily Stop: Influenza, seasonal, injectable Insomnia, unspecified type Start: Sertraline HCl - 25 MG Oral Tablet; TAKE 1 TABLET Bedtime Patient Discussion/Summary 3 month appt trial sertraline 25 for 3 mo Chief Complaint 3 MO FU. NO LONGER TAKING TRAZODONE CAUSED A RASH, ANXIETY AND DID NOT HELP WITH SLEEP History of Present Illness didn?t tolerate trazodone with no help with sleep. rash and tremor and anxious SL- 45 min, cant shut it down, demar several and rises at7, hs <11. rested maddie sometimes. no naps, drives ok. otc adivil pmno help Discussed anxiety and insomnia agrees to a trial of sertraline 25 daily recheck in 3 months Review of Systems As per HPI Active Problems Problems Acute bronchitis, unspecified organism (466.0) (J20.9) Allergic rhinitis (477.9) (J30.9) Class 1 obesity with body mass index (BMI) of 32.0 to 32.9 in adult (278.00,V85.32) (E66.9,Z68.32) COVID-19 (079.89) (U07.1) Elevated fasting glucose (790.21) (R73.01) Encounter for immunization (V03.89) (Z23) Encounter for screening for malignant neoplasm of lung in current smoker with 30 pack year history or greater (V76.0,305.1) (Z12.2,F17.200) Encounter for screening mammogram for breast cancer (V76.12) (Z12.31) Environmental allergies (V15.09) (Z91.09) HTN (hypertension) (401.9) (I10) Hyperlipidemia (272.4) (E78.5) Hypothyroidism (244.9) (E03.9) Insomnia, unspecified type (780.52) (G47.00) Menopause (627.2) (Z78.0) Nicotine dependence, cigarettes, uncomplicated (305.1) (F17.210) Osteopenia of hip, unspecified laterality (733.90) (M85.859) Positive colorectal cancer screening using Cologuard test (787.7) (R19.5) Screening for breast cancer (V76.10) (Z12.39) Screening for colon cancer (V76.51) (Z12.11) Skin rash (782.1) (R21) Surgical History Problems History of section History of Thyroid surgery History of Tonsillectomy Family History Mother Family history of hypertension (V17.49) (Z82.49) Family history of Pancreatic abnormality Father Family history of hypertension (V17.49) (Z82.49) Social History Problems Current every day smoker (305.1) (F17.200) Does not use illicit drugs (V49.89) (Z78.9) Never chewed tobacco (V49.89) (Z78.9) No advance directives (V49.89) (Z78.9) Current Meds Medication NameInstruction Alendronate Sodium 70 MG Oral TabletTAKE 1 TABLET ONCE WEEKLY. Fluticasone Propionate 50 MCG/ACT Nasal SuspensionUSE 2 SPRAYS IN EACH NOSTRIL ONCE DAILY Levothyroxine Sodium 175 MCG Oral TabletTake 1 tablet daily Losartan Potassium-HCTZ 100-12.5 MG Oral TabletTAKE 1 TABLET DAILY. Montelukast Sodium 10 MG Oral TabletTake 1 tablet daily Allergies Medication No Known Drug Allergies Vitals Vital Signs Recorded: [id number] 10:19AM Height: 5 ft 9 in Tobacco Use: a) Yes Patient encouraged to stop using tobacco products: Yes Falls Screening (Age 18+): a) No falls within the last year Signatures Electronically signed by : Ganga Tay MD; Nov 05 2022 2:13PM EST (Author) Normal [employer] Tobacco Screening.on 023 Fall risk assessment a) No falls within the last year [employer] [facility] Work Phone: Tobacco use status [facility] a) Yes [employer] [facility] Work Phone: Tobacco Screening. Yes [employer] [facility] [employer] [facility] Work Phone: CT Chest Low Dose for Lung S creening w/o Contraston 08-20-2022 CT Chest for screening Normal [employer] [facility] Work Phone: TH CT CHEST LUNG CA SCREEN I NITIAL OR FOLLOW UP LR1 LR2 CONTINUATION OF SCREENING LOW DOSEon 08-20-[address] CHEST LUNG CA SCREEN INITIAL OR FOLLOW UP LR1 LR2 CONTINUATION OF SCREENING LOW DOSE Patient Name: RENETTA LUJAN STUDY: TH CT CHEST LOW DOSE FOR LUNG SCREENING WO CONTRAST; 08/20/2022 11:04 am INDICATION: none F17.210 Nicotine dependence, cigarettes, uncomplicated. COMPARISON: None. ACCESSION NUMBER(S): [id number] ORDERING CLINICIAN: GANGA TAY TECHNIQUE: Helical data acquisition of the chest was obtained without IV contrast material. Images were reformatted in axial, coronal, and sagittal planes. FINDINGS: LUNGS AND AIRWAYS: The trachea and central airways are patent. No endobronchial lesion. Lungs are clear. There is mild upper predominant emphysema. There is a 3 mm right upper lobe nodule, image 81/365. 3 mm nodule in the right middle lobe, image 180/365 3 mm right lower lobe nodule, image 273/365. Additional scattered 2-3 mm nodules annotated on PACs. MEDIASTINUM AND CHENTE, LOWER NECK AND AXILLA: The thyroid gland is not visualized. No evidence of thoracic lymphadenopathy by CT criteria. Esophagus appears within normal limits as seen. HEART AND VESSELS: The thoracic aorta is of normal course and caliber with mild to moderate vascular calcifications. Main pulmonary artery and its branches are normal in caliber. Minimal coronary artery calcifications are seen.The study is not optimized for evaluation of coronary arteries. The cardiac chambers are not enlarged. No evidence of pericardial effusion. UPPER ABDOMEN: The visualized subdiaphragmatic structures demonstrate no remarkable findings. CHEST WALL AND OSSEOUS STRUCTURES: There are no suspicious osseous lesions. Mild degenerative changes in the thoracic spine. IMPRESSION: 1. Scattered pulmonary nodules measuring up to 3 mm. Recommend follow-up chest CT in 12 months. 2. Mild upper lung predominant emphysema. 3. Other findings as described above. LUNG RADS CATEGORY: Lung-RADS 2, (Benign Appearance or Behavior): Continue with annual screening in 12 months, CT199 CT Chest Lung Ca Screen Initial or Follow up LR1/LR2/Continuation of Screening Low Dose recommended as per [employer] Guidelines Lung-RADS Version 1.1. Electronically signed by: JOSE LUIS HUBER MD Normal [facility] Medicare Annual Wellness Vis kanwal 08-05-2022 Medicare Annual Wellness Visit *Chief Complaint MCW..6 MO FU . REV LABS History of Present Illness The patient is being seen for the subsequent annual wellness visit. Past Medical, Surgical and Family History: reviewed and updated in chart. Interval History: Patient has not been hospitalized previously. Medications and Supplements: Review of all medications by a prescribing practitioner or clinical pharmacist (such as prescriptions, OTCs, herbal therapies and supplements) documented in the medical record. No, the patient is not using opioids. Health Risk Assessment:. Paper HRA completed by patient and scanned into chart. Patient Self Assessment of Health Status: excellent. Tobacco use: User Alcohol use: User, As noted in social history <2. Illicit drug use: Non-User Current diet: well balanced diet. Exercise Frequency: the patient does not exercise. Depression/Suicide Screening: . During the past 2 weeks, the patient felt down, depressed or hopeless. During the past 2 weeks, the patient felt little interest or pleasure in doing things. Will begin trazodone for insomnia Hearing Impairment: none. Cognitive Impairment: No cognitive impairment observed. Bathing: performs independently. Dressing: performs independently. Walking: performs independently. Toileting: performs independently. Feeding: performs independently. Personal Hygiene: performs independently. Bowels: continent. Bladder: continent. Managing Finances: performs independently. Shopping: performs independently. Managing Medications: performs independently. Housework / Basic Home Maintenance: performs independently. Handling Transportation: performs independently. Preparing Meals: performs independently. Using the Telephone/ Communication Devices: performs independently. Falls Risk Screening:. RENETTA has not fallen in the last 6 months. Home safety risk factors: no grab bars in the bathroom. Advance directives:. Advance Care Planning discussed and documented in the medical record, patient did not wish or was not able to name a surrogate decision maker or provide an advance care plan. Patient has no living will. Patient has no healthcare POA. Since the last office visit there have been no interval operations, hospitalizations, important illnesses or injuries. HTN-Takes and tolerates meds without side effects. No alcohol. no tobacco. no exercise. low salt. Reviewed recommendation for 150 minutes of exercise per week including 2 days of weight training if over age 50. no home cks. a lot of allergy sx have gone now off wendi. uses only prn singualir and flonase Hypothyroid- is euthyroid on replacement. Thyroid ros is unremarkable. osteopenia on bisphos for last 2 yrs and Advised on smoking cessation. Reviewed benefits, options for treatment and risks of continued smoking. cont to smoke, neveres on edge insomnia up to 3 hrs sl, demar+ recc flu and covid booster Review of Systems General-no fatigue weight to within 10 pounds ENT no problems with vision swallowing Cardiac no chest pains palpitations change in exercise tolerance or capacity Pulmonary no cough shortness of breath GI no heartburn or abdominal pain Musculoskeletal no joint pains *Active Problems Acute bronchitis, unspecified organism (466.0) (J20.9) Allergic rhinitis (477.9) (J30.9) COVID-19 (079.89) (U07.1) Elevated fasting glucose (790.21) (R73.01) Encounter for immunization (V03.89) (Z23) Encounter for screening for malignant neoplasm of lung in current smoker with 30 pack year history or greater (V76.0,305.1) (Z12.2,F17.200) Encounter for screening mammogram for breast cancer (V76.12) (Z12.31) Environmental allergies (V15.09) (Z91.09) HTN (hypertension) (401.9) (I10) Hyperlipidemia (272.4) (E78.5) Hypothyroidism (244.9) (E03.9) Menopause (627.2) (Z78.0) Osteopenia of hip, unspecified laterality (733.90) (M85.859) Positive colorectal cancer screening using Cologuard test (787.7) (R19.5) Screening for breast cancer (V76.10) (Z12.39) Screening for colon cancer (V76.51) (Z12.11) Skin rash (782.1) (R21) Surgical History History of section History of Thyroid surgery History of Tonsillectomy 1970 Family History Family history of hypertension (V17.49) (Z82.49) Family history of Pancreatic abnormality Family history of hypertension (V17.49) (Z82.49) Social History Current every day smoker (305.1) (F17.200) 5-9 CIGARETTES/DAY Does not use illicit drugs (V49.89) (Z78.9) Never chewed tobacco (V49.89) (Z78.9) No advance directives (V49.89) (Z78.9) *Allergies No Known Drug Allergies Recorded By: Perla Burton; 12/13/2019 9:27:59 AM *Current Meds Medication NameInstruction Alendronate Sodium 70 MG Oral TabletTAKE 1 TABLET ONCE WEEKLY. Fluticasone Propionate 50 MCG/ACT Nasal SuspensionUSE 2 SPRAYS IN EACH NOSTRIL ONCE DAILY Levothyroxine Sodium 175 MCG Oral TabletTake 1 tablet daily Losartan Potassium-HCTZ 50-12.5 MG Oral Tablet (more content not included)... Normal [employer] Tobacco Screening.on 022 Fall risk assessment a) No falls within the last year [employer] [facility] Work Phone: Tobacco use status [facility] a) Yes [employer] [facility] Work Phone: Tobacco Screening. Yes [employer] [facility] [employer] [facility] Work Phone: BONE DENSITY, DEXA 1 OR MORE SITES: AXIAL SKELETONon 07-29-2022 BONE DENSITY, DEXA 1 OR MORE SITES: AXIAL SKELETON Patient Name: RENETTA LUJAN STUDY: BONE DENSITY, DEXA 1 OR MORE SITES: AXIAL [id number]/7/2022 9:16 am INDICATION: penia Z78.0: MenopauseThe patient is a 66 year old female for a screening bone Densitometry (DEXA). COMPARISON: 07/19/2020. ACCESSION NUMBER(S): [id number] ORDERING CLINICIAN: GANGA TAY TECHNIQUE: Bone Densitometry (DEXA) of the lumbar spine and left hip performed. FINDINGS: Name: RENETTA LUJAN Date:1955 Height:175.2 Gender:F Exam Date:07/29/2022 Weight:91.6 Indications:penia Z78.0: Menopause Fractures:None Treatments:None LEFT FEMUR -TOTAL Bone Mineral Density: 0.891 g/cm2 T-Score -0.4 Z-Score 1.0 LEFT FEMUR -NECK Bone Mineral Density: 0.729 g/cm2 T-Score -1.1 Z-Score 0.6 SPINE L1-L4 Bone Mineral Density: 1.197 g/cm2 T-Score 1.4 Z-Score 3.4 World Health Organization (WHO) criteria for post-menopausal, Women: Normal: T-score at or above -1 SD Osteopenia: T-score between -1 and -2.5 SD Osteoporosis: T-score at or below -2.5 SD 10-Year Fracture Risk: FRAX 10-year Fracture Risk(1): Major Osteoporotic Fracture 23% Hip Fracture 0.0% IMPRESSION: According to World Health Organization criteria, classification is low bone mass (osteopenia) Followup recommended in two years or sooner as clinically warranted. Electronically signed by: DAMON HERRMANN MD [facility] DIGITAL MAMM SCREENING W/ TO Abraham 07-29-2022 DIGITAL MAMM SCREENING W/ ROLO Patient Name: RENETTA LUJAN STUDY: Digital mammography screening with rolo; 07/29/2022 8:59 am ACCESSION NUMBER(S): [id number] ORDERING CLINICIAN: GANGA TAY INDICATION: Screening. COMPARISON: Comparison is made to prior digital mammograms dated 07/19/2020 FINDINGS: CC and MLO 2D digital mammograms and digital breast tomosynthesis images were obtained of the bilateral breasts. 3-D volume images were reconstructed in 4 views at an independent workstation as 1 mm slices through the breasts in both the CC and MLO projections. There are areas of scattered fibroglandular tissue. No discrete mass or focal asymmetry is identified. No suspicious microcalcifications or foci of architectural distortion are seen. There has been no significant change. This study was interpreted with CAD. IMPRESSION: No mammographic evidence of malignancy. BI-RADS CATEGORY: Category: 1 - Negative. Recommendation: 1 Year Screening. Electronically signed by: DAMON HERRMANN MD [facility] - Chemistry and C hemistry - challengeon 07-29-2022 Albumin BCP dye [Mass/Vol] 4.1 g/dL 3.4 - 5.0 [email or web address] Work Phone: ALP [Catalytic activity/Vol] 64 U/L 33 - 136 [facility] Work Phone: ALT With P-5'-P [Catalytic activity/Vol] 16 U/L 7 - 45 [facility] [place] Work Phone: Comment on above: Patients treated wit h Sulfasalazine may generate falsely decreased results for ALT. Anion gap [Moles/Vol] 11 mmol/L 10 - 20 [facility] [place] Work Phone: AST With P-5'-P [Catalytic activity/Vol] 15 U/L 9 - 39 [facility] Work Phone: Bilirubin [Mass/Vol] 0.8 mg/dL 0.0 - 1.2 - [facility] Work Phone: Calcium [Mass/Vol] 8.9 mg/dL 8.6 - 10.3 -[facility] Work Phone: Chloride [Moles/Vol] 94 mmol/L below low threshold 98 - 107 [facility] Work Phone: CO2 [Moles/Vol] 28 mmol/L 21 - 32 [facility] Work Phone: Creatinine [Mass/Vol] 0.63 mg/dL See Below [facility] Work Phone: Comment on above: Reference Range: 0.5 0 - 1.05 Glucose [Mass/Vol] 108 mg/dL above high threshold 74 - 99 -[facility] Work Phone: Potassium [Moles/Vol] 3.8 mmol/L 3.5 - 5.3 -[facility] Work Phone: Protein [Mass/Vol] 6.8 g/dL 6.4 - 8.2 -[facility] Work Phone: Sodium [Moles/Vol] 129 mmol/L below low threshold 136 - 145 -[facility] Work Phone: Comment on above: repeated and verifie d Urea nitrogen [Mass/Vol] 11 mg/dL 6 - 23 -[facility] Work Phone: Laboratory - Hematology and Cell countson 07-29-2022 Erythrocyte distribution width (RBC) [Ratio] 13.6 % See Below [facility] Work Phone: Comment on above: Reference Range: 11. 5 - 14.5 Hematocrit (Bld) [Volume fraction] 48.8 % above high threshold See Below [employer] [facility] Work Phone: Comment on above: Reference Range: 36. 0 - 46.0 Hemoglobin (Bld) [Mass/Vol] 16.8 g/dL above high threshold See Below [facility] Work Phone: Comment on above: Reference Range: 12. 0 - 16.0 MCHC (RBC) [Mass/Vol] 34.4 g/dL See Below [employer] [facility] Work Phone: Comment on above: Reference Range: 32. 0 - 36.0 MCV (RBC) [Entitic vol] 92 fL 80 - 100 [employer] [facility] Work Phone: Platelets (Bld) [#/Vol] 304 10*3/uL 150 - 450 [employer] [facility] Work Phone: RBC (Bld) [#/Vol] 5.31 {x10E12/L} above high threshold See Below [employer] [facility] Work Phone: Comment on above: Reference Range: 4.0 0 - 5.20 WBC (Bld) [#/Vol] 9.4 10*3/uL 4.4 - 11.3 [facility] [employer] [facility] Work Phone: Lipid Panelon 07-29-2022 Cholesterol [Mass/Vol] 266 mg/dL above high threshold 0 - 199 [employer] [facility] Work Phone: Comment on above: . AGE DESIRABLE BORD BE HIGH HIGH 0-19 Y 0 - 169 170 - 199 >/= 200 20-24 Y 0 - 189 190 - 224 >/= 225 >24 Y 0 - 199 200 - 239 >/= 240 All ranges are based on fasting samples. Specific therapeutic targets will vary based on patient-specific cardiac risk.. Pediatric guidelines reference:Pediatrics 2011, 128(S5). Adult guidelines reference: NCEP ATPIII Guidelines, FRANCINE 2001, 258:2486-97. Venipuncture immediately after or during the administration of Metamizole may lead to falsely low results. Testing should be performed immediately prior to Metamizole dosing. Cholesterol in HDL [Mass/Vol] 65.0 mg/dL [employer] [facility] Work Phone: Comment on above: . AGE VERY LOW LOW N ORMAL HIGH 0-19 Y < 35 < 40 40-45 ---- 20- 24 Y ---- < 40 >45 ---- >24 Y ---- < 40 40-60 >60. Cholesterol in LDL [Mass/Vol] 148 mg/dL above high threshold 0 - 99 [facility] Work Phone: Comment on above: . NEAR BORD AGE CHAPO RABLE OPTIMAL HIGH HIGH VERY HIGH 0-19 Y 0 - 109 --- 110-129 >/= 130 ---- 20-24 Y 0 - 119 --- 120-159 >/= 160 ---- >24 Y 0 - 99 100-129 130-159 160-189 >/=190. Cholesterol non HDL [Mass/Vol] 201 mg/dL [employer] [facility] Work Phone: Comment on above: AGE DESIRABLE BORDER LINE HIGH HIGH VERY HIGH 0-19 Y 0 - 119 120 - 144 >/= 145 >/= 160 20-24 Y 0 - 149 150 - 189 >/= 190 ---- >24 Y 30 MG/DL ABOVE LDL CHOLESTEROL GOAL. Cholesterol.total/Ch olesterol in HDL [Mass ratio] 4.1 {ratio} [employer] [facility] Work Phone: Comment on above: REF VALUESDESIRABLE < 3.4HIGH RISK > 5.0 Triglyceride [Mass/Vol] 264 mg/dL above high threshold 0 - 149 [facility] Work Phone: Comment on above: . AGE DESIRABLE BORD BE HIGH HIGH VERY HIGH 0 D-90 D 19 - 174 ---- ---- ----91 D- 9 Y 0 - 74 75 - 99 >/= 100 ---- 10-19 Y 0 - 89 90 - 129 >/= 130 ---- 20-24 Y 0 - 114 115 - 149 >/= 150 ---- >24 Y 0 - 149 150 - 199 200- 499 >/= 500. Venipuncture immediately after or during the administration of Metamizole may lead to falsely low results. Testing should be performed immediately prior to Metamizole dosing. Lipid Panel 53 mg/dL above high threshold 0 - 40 [facility] Work Phone: Mamm - Screening Mammogram w / Tomosynthesison 07-29-2022 MG Breast Screening Normal [facility] Work Phone: No Panel Informationon 07-29 >90 >90 [facility] Work Phone: Comment on above: CALCULATIONS OF AUBREE MATED GFR ARE PERFORMED USING THE 2020 CKD-EPI STUDY REFIT EQUATION WITHOUT THE RACE VARIABLE FOR THE IDMS-TRACEABLE CREATININE METHODS.https://jasn.asnjournals.org/content//ASN .7927072150 TSH - Thyroid Stimulating Ho rmone, Serumon 07-29-2022 TSH Qn 0.68 m[IU]/L See Below [facility] [place] Work Phone: Comment on above: Reference Range: 0.4 4 - 3.98 TSH testing is performed using different testing methodology at [facility] than at other [facility]. Direct result comparisons should only be made within the same method. Xray Bone Density, Dexa 1 or More Siteson 07-29-2022 DXA Bone [Mass/Area] Bone density Normal [facility] Work Phone: Office Visit (Primary Care T xt/Forms)on 01-31-2022 Follow-up visit Diagnoses/Problems Assessed Encounter for screening mammogram for breast cancer (V76.12) (Z12.31) Hyperlipidemia (272.4) (E78.5) Hypothyroidism (244.9) (E03.9) Menopause (627.2) (Z78.0) Osteopenia of hip, unspecified laterality (733.90) (M85.859) Allergic rhinitis (477.9) (J30.9) Orders Encounter for screening mammogram for breast cancer Mamm - Screening Mammogram w/ Tomosynthesis; Status:Hold For - Scheduling; Requested for:31Jan2022; Radiologist to Determine Optimal Study : Y What are the patient's signs and symptoms ? : Annual Screening Mammogram Hyperlipidemia Complete Blood Count; Status:Active; Requested for:31Jan2022; Comprehensive Metabolic Panel; Status:Active; Requested for:31Jan2022; Lipid Panel; Status:Active; Requested for:31Jan2022; Hypothyroidism TSH - Thyroid Stimulating Hormone, Serum; Status:Active; Requested for:31Jan2022; Menopause Xray Bone Density, Dexa 1 or More Sites; Status:Hold For - Scheduling; Requested for:31Jan2022; Radiologist to Determine Optimal Study : Y What are the patient's signs and symptoms? : penia Patient Discussion/Summary 6 month appointment and labs. Mammogram DEXA Chief Complaint 6 MO FU History of Present Illness Since the last office visit there have been no interval operations, hospitalizations, important illnesses or injuries. HTN-Takes and tolerates meds without side effects. No alcohol. ecig tobacco. no exercise. low salt. Reviewed recommendation for 150 minutes of exercise per week including 2 days of weight training if over age 50 Hyperlipidemia- is not on statin and a prudent diet. Hypothyroid- is euthyroid on replacement. Thyroid ros is unremarkable. Currently on Singulair and nasal steroids for allergic rhinitis Reviewed Fosamax use and will monitor a 2-year interval. FRAX is 3.5/ Review of Systems General-no fatigue weight to within 10 pounds ENT no problems with vision swallowing Cardiac no chest pains palpitations change in exercise tolerance or capacity Pulmonary no cough shortness of breath GI no heartburn or abdominal pain Musculoskeletal no joint pains Active Problems Problems Acute bronchitis, unspecified organism (466.0) (J20.9) Allergic rhinitis (477.9) (J30.9) COVID-19 (079.89) (U07.1) Elevated fasting glucose (790.21) (R73.01) Encounter for immunization (V03.89) (Z23) Encounter for screening for malignant neoplasm of lung in current smoker with 30 pack year history or greater (V76.0,305.1) (Z12.2,F17.200) Environmental allergies (V15.09) (Z91.09) HTN (hypertension) (401.9) (I10) Hyperlipidemia (272.4) (E78.5) Hypothyroidism (244.9) (E03.9) Menopause (627.2) (Z78.0) Osteopenia of hip, unspecified laterality (733.90) (M85.859) Positive colorectal cancer screening using Cologuard test (787.7) (R19.5) Screening for breast cancer (V76.10) (Z12.39) Screening for colon cancer (V76.51) (Z12.11) Skin rash (782.1) (R21) Surgical History Problems History of section History of Thyroid surgery History of Tonsillectomy Family History Mother Family history of hypertension (V17.49) (Z82.49) Family history of Pancreatic abnormality Father Family history of hypertension (V17.49) (Z82.49) Social History Problems Current every day smoker (305.1) (F17.200) Does not use illicit drugs (V49.89) (Z78.9) Never chewed tobacco (V49.89) (Z78.9) No advance directives (V49.89) (Z78.9) Current Meds Medication NameInstruction Alendronate Sodium 70 MG Oral TabletTAKE 1 TABLET ONCE WEEKLY. Fluticasone Propionate 50 MCG/ACT Nasal SuspensionUSE 2 SPRAYS IN EACH NOSTRIL ONCE DAILY Levothyroxine Sodium 175 MCG Oral TabletTake 1 tablet daily Losartan Potassium-HCTZ 50-12.5 MG Oral TabletTAKE 1 TABLET DAILY. Montelukast Sodium 10 MG Oral TabletTake 1 tablet daily Allergies Medication No Known Drug Allergies Vitals Vital Signs Recorded: [id number] 08:55AM Height: 5 ft 9 in Tobacco Use: a) Yes Patient encouraged to stop using tobacco products: Yes PHQ-2 #1. Over the last 2 weeks have you felt down, depressed or hopeless? (If yes, answer PHQ-9 below): No PHQ-2 #2. Over the last 2 weeks have you felt little interest or pleasure in doing things? (If yes, answer PHQ-9 below): No Fall Screening: a) No falls within the last year Results/Data nov labs Signatures Electronically signed by : Ganga Tay MD; Jan 31 2022 9:13AM EST (Author) Normal [employer] Tobacco Screening.on 05-12-2 022 Adult depression screening assessment No [facility] [employer] [facility] Work Phone: Fall risk assessment a) No falls within the last year -Medical [employer] [facility] Work Phone: Tobacco use status CPHS a) Yes [employer] [facility] Work Phone: Tobacco Screening. Yes [facility] [employer] [facility] Work Phone: Tobacco Screening.on 021 Fall risk assessment a) No falls within the last year -Medical [employer] [facility] Work Phone: Tobacco use status CPHS a) Yes [facility] [employer] [facility] Work Phone: Tobacco Screening. Yes [employer] [facility] Work Phone: Laboratory - Chemistry and C hemistry - challengeon 07-24-2021 Albumin BCP dye [Mass/Vol] 4.1 g/dL 3.4 - 5.0 [employer] [facility] Work Phone: ALP [Catalytic activity/Vol] 74 U/L 33 - 136 [employer] [facility] Work Phone: ALT With P-5'-P [Catalytic activity/Vol] 20 U/L 7 - 45 [employer] [facility] Work Phone: Comment on above: Patients treated wit h Sulfasalazine may generate falsely decreased results for ALT. Anion gap [Moles/Vol] 11 mmol/L 10 - 20 [employer] [facility] Work Phone: AST With P-5'-P [Catalytic activity/Vol] 19 U/L 9 - 39 [employer] [facility] Work Phone: Bilirubin [Mass/Vol] 0.7 mg/dL 0.0 - 1.2 [facility] [employer] [facility] Work Phone: Calcium [Mass/Vol] 9.3 mg/dL 8.6 - 10.3 [facility] [employer] [facility] Work Phone: Chloride [Moles/Vol] 94 mmol/L below low threshold 98 - 107 [facility] Work Phone: CO2 [Moles/Vol] 30 mmol/L 21 - 32 [facility] Work Phone: Creatinine [Mass/Vol] 0.59 mg/dL See Below -[facility] Work Phone: Comment on above: Reference Range: 0.5 0 - 1.05 Glucose [Mass/Vol] 112 mg/dL above high threshold 74 - 99 [facility] Work Phone: Potassium [Moles/Vol] 4.4 mmol/L 3.5 - 5.3 -[facility] Work Phone: Protein [Mass/Vol] 7.0 g/dL 6.4 - 8.2 -[facility] Work Phone: Sodium [Moles/Vol] 131 mmol/L below low threshold 136 - 145 -[facility] Work Phone: Urea nitrogen [Mass/Vol] 10 mg/dL 6 - 23 -[facility] Work Phone: Laboratory - Hematology and Cell countson 07-24-2021 Erythrocyte distribution width (RBC) [Ratio] 14.1 % See Below [facility] Work Phone: Comment on above: Reference Range: 11. 5 - 14.5 Hematocrit (Bld) [Volume fraction] 47.9 % above high threshold See Below [facility] Work Phone: Comment on above: Reference Range: 36. 0 - 46.0 Hemoglobin (Bld) [Mass/Vol] 16.1 g/dL above high threshold See Below [facility] Work Phone: Comment on above: Reference Range: 12. 0 - 16.0 MCHC (RBC) [Mass/Vol] 33.7 g/dL See Below -[facility] Work Phone: Comment on above: Reference Range: 32. 0 - 36.0 MCV (RBC) [Entitic vol] 96 fL 80 - 100 [employer] [facility] Work Phone: Platelets (Bld) [#/Vol] 358 10*3/uL 150 - 450 [facility] Work Phone: RBC (Bld) [#/Vol] 5.01 {x10E12/L} See Below [facility] [employer] [facility] Work Phone: Comment on above: Reference Range: 4.0 0 - 5.20 WBC (Bld) [#/Vol] 7.8 10*3/uL 4.4 - 11.3 [facility] [place] Work Phone: Lipid Panelon 07-24-2021 Cholesterol [Mass/Vol] 243 mg/dL above high threshold 0 - 199 [employer] Work Phone: Comment on above: . AGE DESIRABLE BORD BE HIGH HIGH 0-19 Y 0 - 169 170 - 199 >/= 200 20-24 Y 0 - 189 190 - 224 >/= 225 >24 Y 0 - 199 200 - 239 >/= 240 All ranges are based on fasting samples. Specific therapeutic targets will vary based on patient-specific cardiac risk.. Pediatric guidelines reference:Pediatrics 2011, 128(S5). Adult guidelines reference: NCEP ATPIII Guidelines, FRANCINE 2001, 258:2486-97. Venipuncture immediately after or during the administration of Metamizole may lead to falsely low results. Testing should be performed immediately prior to Metamizole dosing. Cholesterol in HDL [Mass/Vol] 62.0 mg/dL [employer] [facility] Work Phone: Comment on above: . AGE VERY LOW LOW N ORMAL HIGH 0-19 Y < 35 < 40 40-45 ---- 20- 24 Y ---- < 40 >45 ---- >24 Y ---- < 40 40-60 >60. Cholesterol in LDL [Mass/Vol] 139 mg/dL above high threshold 0 - 99 [employer] [facility] Work Phone: Comment on above: . NEAR BORD AGE CHAPO RABLE OPTIMAL HIGH HIGH VERY HIGH 0-19 Y 0 - 109 --- 110-129 >/= 130 ---- 20-24 Y 0 - 119 --- 120-159 >/= 160 ---- >24 Y 0 - 99 100-129 130-159 160-189 >/=190. Cholesterol non HDL [Mass/Vol] 181 mg/dL [employer] [facility] Work Phone: Comment on above: AGE DESIRABLE BORDER LINE HIGH HIGH VERY HIGH 0-19 Y 0 - 119 120 - 144 >/= 145 >/= 160 20-24 Y 0 - 149 150 - 189 >/= 190 ---- >24 Y 30 MG/DL ABOVE LDL CHOLESTEROL GOAL. Cholesterol.total/Ch olesterol in HDL [Mass ratio] 3.9 {ratio} [employer] [facility] Work Phone: Comment on above: REF VALUESDESIRABLE < 3.4HIGH RISK > 5.0 Triglyceride [Mass/Vol] 210 mg/dL above high threshold 0 - 149 [employer] [facility] Work Phone: Comment on above: . AGE DESIRABLE BORD BE HIGH HIGH VERY HIGH 0 D-90 D 19 - 174 ---- ---- ----91 D- 9 Y 0 - 74 75 - 99 >/= 100 ---- 10-19 Y 0 - 89 90 - 129 >/= 130 ---- 20-24 Y 0 - 114 115 - 149 >/= 150 ---- >24 Y 0 - 149 150 - 199 200- 499 >/= 500. Venipuncture immediately after or during the administration of Metamizole may lead to falsely low results. Testing should be performed immediately prior to Metamizole dosing. Lipid Panel 42 mg/dL above high threshold 0 - 40 [employer] [facility] Work Phone: No Panel Informationon 07-24 >60 >60 [employer] [facility] Work Phone: Comment on above: CALCULATIONS OF AUBREE MATED GFR ARE PERFORMED USING THE MDRD STUDY EQUATION FOR THE IDMS-TRACEABLE CREATININE METHODS. CLIN CHEM 2007;53:766-72 TSH - Thyroid Stimulating Ho Briseida membreno 07-24-2021 TSH Qn 0.42 m[IU]/L below low threshold See Below [facility] Work Phone: Comment on above: Reference Range: 0.4 4 - 3.98 TSH testing is performed using different testing methodology at [facility] than at other [facility]. Direct result comparisons should only be made within the same method. CT CHEST LOW DOSE LUNG RADHA CLEMENS - LCSPon 08-28-2020 CT CHEST LOW DOSE LUNG SCREENING - LCSP EXAMINATION: CT CHEST LOW DOSE LUNG SCREENING - LCSP HISTORY: ORDERING SYSTEM PROVIDED HISTORY: Screening for malignant neoplasm of respiratory organ, TECHNOLOGIST PROVIDED HISTORY: Illness/Other Reason for exam: 30 pack years current smoker Encounter Type: Initial Additional signs and symptoms: none ORDERING SYSTEM PROVIDED DIAGNOSIS CODES: Z12.2 Screening for malignant neoplasm of respiratory organ F17.210 Cigarette Smoker COMPARISON: None. TECHNIQUE: Dose reduction techniques were achieved by using automated exposure control and/or adjustment of mA and/or kV according to patient size and/or use of iterative reconstruction technique. Low-dose chest CT studies are also viewed in reconstructed coronal and sagittal planes. FINDINGS: The heart is not enlarged. Great vessels are normal caliber and configuration. I do see moderate atherosclerotic calcifications of the aortic arch without significant coronary artery calcification. The esophagus is normal. I do not identify enlarged mediastinal lymph node. Lung parenchymal windows show hyperinflated lung airspaces. The tracheobronchial tree structures appear to be satisfactory. I do not identify suspicious ground-glass or noncalcified solid pulmonary nodule. The supraclavicular, axillary, chest wall soft tissues appeared grossly normal. The thoracic spine is intact with a normal alignment. Lower sternal pectus excavatum noted. The upper abdominal structures are satisfactory. IMPRESSION: 1. No suspicious infiltrates or noncalcified pulmonary nodules on these lung screening CT studies. 2. Atherosclerotic calcifications thoracic aorta without significant coronary artery atherosclerosis. Lung-RADs 1 Findings: No lung nodules. Nodule(s) with specific calcifications: Complete, central, popcorn, concentric rings and fat-containing nodules. Management: Continue annual screening with LDCT in 12 months. NTP/[facility] Workstation ID: [id number] Dictated by: EMIGDIO ARREDONDO on FriAug 28, 2020 12:30:37 PM EST Transcribed by: LUCIA ALBRIGHT on FriAug 28, 2020 12:50:59 PM EST Finalized by: EMIGDIO ARREDONDO on FriAug 28, 2020 4:12:01 PM EST Normal [facility] Comment on above: Order Comment: Pt/fa x - nr ref#[id number] Injury/Trauma or Illness?:Illness/Other How long have you had these symptoms (acute/chronic)?:Chronic Reason for exam?:30 pack years current smoker Type of Exam?:Initial Additional signs and symptoms?:none Auto Diffon 12-15-2018 Basophils (Bld) [#/Vol] 0.1 E3/mcL Normal 0.0-0.2 [facility] Comment on above: Order Comment: Order Added by Discern Expert. Performed By: #### 2 [id number] #### [employer] [address] [place] [address] Basophils/100 WBC (Bld) 1.3 % Normal 0.0-2.0 [facility] Comment on above: Order Comment: Order Added by Discern Expert. Performed By: #### 2 [id number] #### [employer] [address] [place] [address] Eos Absolute 0.3 E3/mcL Normal 0.0-0.7 [facility] Comment on above: Order Comment: Order Added by Discern Expert. Performed By: #### 2 [id number] #### [employer] [address] [place] [address] Eosinophils/100 WBC (Bld) 4.4 % Normal 0.0-11.0 [facility] Comment on above: Order Comment: Order Added by Discern Expert. Performed By: #### 2 [id number] #### [employer] [address] [place] [address] Lymphocytes (Bld) [#/Vol] 1.7 E3/mcL Normal 1.2-3.4 [facility] Comment on above: Order Comment: Order Added by Discern Expert. Performed By: #### 2 [id number] #### [employer] [address] [place] [address] Lymphocytes/100 WBC (Bld) 26.1 % Normal 20.0-55.0 [facility] Comment on above: Order Comment: Order Added by Discern Expert. Performed By: #### 2 [id number] #### [employer] BarnhartHemo [address] [place] [address] Warren Absolute 0.5 E3/mcL Normal 0.0-0.7 [facility] Comment on above: Order Comment: Order Added by Discern Expert. Performed By: #### 2 [id number] #### [employer]INA Thompsono [address] [place] [address] Monocytes/100 WBC (Bld) 7.7 % Normal 0.0-10.0 [facility] Comment on above: Order Comment: Order Added by Discern Expert. Performed By: #### 2 [id number] #### [employer] [address] [place] [address] Neutro Absolute 4.0 E3/mcL Normal 1.4-6.5 [facility] Comment on above: Order Comment: Order Added by Discern Expert. Performed By: #### 2 [id number] #### [employer] BarnhartHemo [address] [place], [place] [id number] Neutro Auto 60.5 % Normal 37.0-75.0 [facility] Comment on above: Order Comment: Order Added by Discern Expert. Performed By: #### 2 [id number] #### [employer] [address] [place] [address] CBC w/ Auto Diffon 9 Erythrocyte distribution width (RBC) [Ratio] 13.9 % Normal 11.5-14.5 [facility] Comment on above: Performed By: #### 2 [id number] #### [employer] Barnhart[employer] [address] [place] [address] Hematocrit (Bld) [Volume fraction] 48.3 % High 36.0-48.0 [facility] Comment on above: Performed By: #### 2 [id number] #### [employer] Barnhart[employer]emo [address] [place] [address] Hemoglobin (Bld) [Mass/Vol] 16.6 g/dL High 12.0-16.0 [facility] Comment on above: Performed By: #### 2 [id number] #### [employer] [address] [place] [address] MCH (RBC) [Entitic mass] 32.2 pg High 27.0-31.0 [facility] Comment on above: Performed By: #### 2 [id number] #### [employer] [address] [place] [address] MCHC (RBC) [Mass/Vol] 34.3 g/dL Normal 33.0-37.0 [facility] Comment on above: Performed By: #### 2 [id number] #### [employer] [address] [place] [address] MCV (RBC) [Entitic vol] 93.9 fL Normal 78.0-100.0 [facility] Comment on above: Performed By: #### 2 [id number] #### [employer] [address] [place] [address] Platelet mean volume (Bld) [Entitic vol] 7.7 fL Normal 7.4-11.0 [facility] Comment on above: Performed By: #### 2 [id number] #### [employer] [address] [place] [address] Platelets (Bld) [#/Vol] 350 E3/mcL Normal 130-400 [facility] Comment on above: Performed By: #### 2 [id number] #### [employer] [address] [place] [address] RBC (Bld) [#/Vol] 5.15 E6/mcL Normal 3.90-5.40 [facility] Comment on above: Performed By: #### 2 [id number] #### [employer] [address] [place] [address] WBC (Bld) [#/Vol] 6.7 E3/mcL Normal 3.6-11.0 [facility] Comment on above: Performed By: #### 2 [id number] #### [employer] [address] [place] [address] CMPon 12-15-2018 Albumin [Mass/Vol] 4.2 g/dL Normal 3.4-5.0 [facility] Comment on above: Performed By: #### 2 [id number] #### [facility] [employer] [address] [place] [address] Albumin/Globulin [Mass ratio] 1.6 {ratio} Normal 1.1-1.9 [facility] Comment on above: Performed By: #### 2 [id number] #### [facility] [employer] [address] [place] [address] Alk Phos 81 Int._Unit/L Normal 33-136 [facility] Comment on above: Performed By: #### 2 [id number] #### [facility] [employer] [address] [place], [place] [address] [id number] ALT [Catalytic activity/Vol] 17 Int._Unit/L Normal 7-45 [facility] Comment on above: Performed By: #### 2 [id number] #### [facility] [employer] [address] [place] [address] 61707 Anion gap [Moles/Vol] 13 mmol/L Normal 10-20 [facility] Comment on above: Performed By: #### 2 [id number] #### [facility] [employer] [address] [place], [place] [id number] AST [Catalytic activity/Vol] 16 Int._Unit/L Normal 9-39 [facility] Comment on above: Performed By: #### 2 [id number] #### [facility] [employer] [address] [place] [address] 36226 Bili Total 0.65 mg/dL Normal 0.00-1.20 [facility] Comment on above: Performed By: #### 2 [id number] #### [facility] [employer] [address] [place] [address] 90918 Calcium [Mass/Vol] 9.5 mg/dL Normal 8.6-10.3 [facility] Comment on above: Performed By: #### 2 [id number] #### [facility] [employer] [address] [place] [address] 38589 Chloride [Moles/Vol] 97 mmol/L Low 98-107 [facility] Comment on above: Performed By: #### 2 [id number] #### [facility] [employer] [address] [place] [address] 45623 CO2 [Moles/Vol] 27.0 mmol/L Normal 21.0-32.0 [facility] Comment on above: Performed By: #### 2 [id number] #### [facility] [employer] [address] [place] [address] 86716 Creatinine [Mass/Vol] 0.6 mg/dL Normal 0.5-1.1 [facility] Comment on above: Performed By: #### 2 [id number] #### [facility] [employer] [address] [place] [address] 20747 Globulin (S) [Mass/Vol] 3.0 g/dL Normal 2.0-4.0 [facility] Comment on above: Performed By: #### 2 [id number] #### [facility] [employer] [address] [place] [address] 96686 Glucose [Mass/Vol] 123 mg/dL High 70-99 [facility] Comment on above: Performed By: #### 2 [id number] #### [facility] [employer] [address] [place] [address] 97428 Potassium [Moles/Vol] 4.0 mmol/L Normal 3.5-5.3 [facility] Comment on above: Performed By: #### 2 [id number] #### [facility] [employer] [address] [place] [address] 56780 Protein [Mass/Vol] 6.8 g/dL Normal 6.4-8.2 [facility] Comment on above: Performed By: #### 2 [id number] #### [facility] [employer] [address] [place] [address] 29572 Sodium [Moles/Vol] 133 mmol/L Low 136-145 [facility] Comment on above: Performed By: #### 2 [id number] #### [facility] [employer] [address] [place] [address] 48862 Urea nitrogen [Mass/Vol] 9 mg/dL Normal 6-23 [facility] Comment on above: Performed By: #### 2 [id number] #### [facility] [employer] [address] [place] [address] 48049 Urea nitrogen/Creatinine [Mass ratio] 15.0 ratio Normal 5.4-30.0 [facility] Comment on above: Performed By: #### 2 [id number] #### [facility] [employer] [address] [place] [address] 26310 Lipid Profileon 12-15-2018 Cholesterol [Mass/Vol] 241 mg/dL High 0-199 [facility] Comment on above: Result Comment: TOTA L CHOLEESTEROL: <200 NORMAL 200 - 239 BORDERLINE HIGH >240 HIGH Performed By: #### 3 [id number] #### [facility] [employer] [facility] [place] [address] Cholesterol in HDL [Mass/Vol] 63 mg/dL High 40-60 [facility] Comment on above: Performed By: #### 3 [id number] #### [facility] [employer] [facility] [place] [address] Cholesterol in LDL [Mass/Vol] 131 mg/dL High 0-130 [facility] Comment on above: Result Comment: <100 OPTIMAL 100-129 NEAR / ABOVE OPTIMAL 130-159 BORDERLINE HIGH 160-189 HIGH >190 VERY HIGH CALC LDL NOT VALID WHEN TRIGLYCERIDE IS >400 MG/DL Performed By: #### 3 [id number] #### [facility] [employer] [address] [place] [address] 80345 Cholesterol in VLDL [Mass/Vol] 47 mg/dL High 0-40 [facility] Comment on above: Performed By: #### 3 [id number] #### [facility] [employer] [facility] [place] [address] Triglyceride [Mass/Vol] 235 mg/dL High 0-149 [facility] Comment on above: Result Comment: AGE DESIRABLE BORDERLINE HIGH 91 D - 9 Y 0 - 74 75 - 99 > 100 10 - 19 Y 0 - 89 90 - 129 > 130 20 -24 Y 0 - 114 115 - 149 > 150 > 25 0 - 149 150 - 199 200 - 499 Performed By: #### 3 [id number] #### [facility] [employer] [address] [place] [address] 64239 TSHon 12-15-2018 TSH Qn 0.43 mcIU/mL Normal 0.30-5.60 [facility] Comment on above: Performed By: #### 2 [id number] #### [facility] [employer] [address] [place] [address] 89818 eGFRon 12-15-2018 GFR/1.73 sq M predicted among non-blacks MDRD (S/P/Bld) [Vol rate/Area] mL/min/{1.73_m2} Normal [facility] Comment on above: Order Comment: Order added by Discern Expert. Performed By: #### 1 [id number] #### [facility] [place] [address] Vital Signs Date Time Vital Sign Value Performing Clinician Facility 05-10-2025 10:03-0400 Body height 175.[address] Ganga Tay MD Work Phone: [facility] 05-10-2025 10:03-0400 Body mass index (BMI) [Ratio] 33 kg/m2 Dr. Ganga Tay MD Work Phone: [phone] [place] [address] 05-10-2025 10:03-0400 Body weight 101.[address] Ganga Tay MD Work Phone: [phone] [place] [address] 04-28-2025 10:08-0400 Body mass index (BMI) [Ratio] 33.23 kg/m2 Ganga Tay MD Work Phone: [facility] 04-28-2025 10:08-0400 Body weight 102.06 kg Ganga Tay MD Work Phone: [facility] 04-28-2025 10:08-0400 Diastolic blood pressure 80 mm[Hg] Ganga Tay MD Work Phone: [facility] 04-28-2025 10:08-0400 Heart rate 86 /min Ganga Tay MD Work Phone: [facility] 04-28-2025 10:08-0400 SaO2% (BldA) [Mass fraction] 95 % Ganga Tay MD Work Phone: [facility] 04-28-2025 10:08-0400 Systolic blood pressure 138 mm[Hg] Ganga Tay MD Work Phone: [facility] 02-16-2025 10:46-0400 Body mass index (BMI) [Ratio] 34.11 kg/m2 Ganga Tay MD Work Phone: [facility] 02-16-2025 10:46-0400 Body weight 104.78 kg Ganga Tay MD Work Phone: [facility] 02-16-2025 10:46-0400 Diastolic blood pressure 90 mm[Hg] Ganga Tay MD Work Phone: [facility] 02-16-2025 10:46-0400 Heart rate 89 /min Ganga Tay MD Work Phone: [facility] 02-16-2025 10:46-0400 SaO2% (BldA) [Mass fraction] 94 % Ganga Tay MD Work Phone: [facility] 02-16-2025 10:46-0400 Systolic blood pressure 170 mm[Hg] Ganga Tay MD Work Phone: [facility] 11-29-2024 10:05-0400 Body height 175.26 cm No Primary Care Physician [facility] 11-29-2024 10:05-0400 Body mass index (BMI) [Ratio] 32.8 kg/m2 No Primary Care Physician [facility] 11-29-2024 10:05-0400 Body weight 100.86 kg No Primary Care Physician [facility] 11-15-2024 09:44-0500 Body mass index (BMI) [Ratio] 33.52 kg/m2 Ganga Tay MD Work Phone: [facility] 11-15-2024 09:44-0500 Body weight 102.97 kg Ganga Tay MD Work Phone: [facility] 11-15-2024 09:44-0500 Diastolic blood pressure 90 mm[Hg] Ganga Tay MD Work Phone: [facility] 11-15-2024 09:44-0500 Heart rate 88 /min Ganga Tay MD Work Phone: [facility] 11-15-2024 09:44-0500 SaO2% (BldA) [Mass fraction] 95 % Ganga Tay MD Work Phone: [facility] 11-15-2024 09:44-0500 Systolic blood pressure 150 mm[Hg] Ganga Tay MD Work Phone: [facility] 11-02-2024 10:52-0500 Body mass index (BMI) [Ratio] 33.23 kg/m2 Raul Fletcher RADIAL DRILL OPERATOR-GRADUATING MACHINE OPERATOR Work Phone: [facility] 11-02-2024 10:52-0500 Body weight 102.06 kg Raul Fletcher RADIAL DRILL OPERATOR-GRADUATING MACHINE OPERATOR Work Phone: [facility] 11-02-2024 10:52-0500 Diastolic blood pressure 91 mm[Hg] Raul Fletcher RADIAL DRILL OPERATOR-GRADUATING MACHINE OPERATOR Work Phone: [facility] 11-02-2024 10:52-0500 Heart rate 96 /min Raul Fletcher RADIAL DRILL OPERATOR-GRADUATING MACHINE OPERATOR Work Phone: [facility] 11-02-2024 10:52-0500 Respiratory rate 16 /min Raul Fletcher RADIAL DRILL OPERATOR-GRADUATING MACHINE OPERATOR Work Phone: [facility] 11-02-2024 10:52-0500 Systolic blood pressure 164 mm[Hg] Raul Fletcher RADIAL DRILL OPERATOR-GRADUATING MACHINE OPERATOR Work Phone: [facility] 10-11-2024 10:53-0500 Diastolic blood pressure 80 mm[Hg] Ganga Tay MD Work Phone: [facility] 10-11-2024 10:53-0500 Heart rate 87 /min Ganga Tay MD Work Phone: [facility] 10-11-2024 10:53-0500 SaO2% (BldA) [Mass fraction] 96 % Ganga Tay MD Work Phone: [facility] 10-11-2024 10:53-0500 Systolic blood pressure 140 mm[Hg] Ganga Tay MD Work Phone: [facility] 09-24-2024 14:33-0500 Diastolic blood pressure 83 mm[Hg] Garcia 05 [facility] 09-24-2024 14:33-0500 Heart rate 78 /min Garcia 05 [facility] 09-24-2024 14:33-0500 Respiratory rate 16 /min [address] 09-24-2024 14:33-0500 SaO2% (BldA) [Mass fraction] 94 % [address] 09-24-2024 14:33-0500 Systolic blood pressure 162 mm[Hg] [address] 09-24-2024 14:14-0500 Body temperature 98.1 [degF] [address] 09-24-2024 13:40-0500 Body height 175.[address] 09-24-2024 13:40-0500 Body mass index (BMI) [Ratio] 33.17 kg/m2 [address] 09-24-2024 13:40-0500 Body weight 101.[address] 08-30-2024 10:17-0500 Diastolic blood pressure 90 mm[Hg] Ganga Tay MD Work Phone: [facility] 08-30-2024 10:17-0500 Heart rate 81 /min Ganga Tay MD Work Phone: [facility] 08-30-2024 10:17-0500 SaO2% (BldA) [Mass fraction] 94 % Ganga Tay MD Work Phone: [facility] 08-30-2024 10:17-0500 Systolic blood pressure 170 mm[Hg] Ganga Tay MD Work Phone: [facility] 08-24-2024 13:04-0500 Body mass index (BMI) [Ratio] 32.93 kg/m2 Raul Fletcher APRN-GRADUATING MACHINE OPERATOR Work Phone: [facility] 08-24-2024 13:04-0500 Body weight 101.15 kg Raul Fletcher APRN-GRADUATING MACHINE OPERATOR Work Phone: [facility] 08-24-2024 13:04-0500 Diastolic blood pressure 103 mm[Hg] Raul Fletcher APRN-GRADUATING MACHINE OPERATOR Work Phone: [facility] 08-24-2024 13:04-0500 Heart rate 71 /min Raul Howard RADIAL DRILL OPERATOR-GRADUATING MACHINE OPERATOR Work Phone: [facility] 08-24-2024 13:04-0500 Respiratory rate 16 /min Raul Chance RADIAL DRILL OPERATOR-GRADUATING MACHINE OPERATOR Work Phone: [facility] 08-24-2024 13:04-0500 Systolic blood pressure 171 mm[Hg] Raul Chance RADIAL DRILL OPERATOR-GRADUATING MACHINE OPERATOR Work Phone: [facility] 08-16-2024 14:18-0500 Diastolic blood pressure 80 mm[Hg] Ganga Tay MD Work Phone: [facility] 08-16-2024 14:18-0500 Heart rate 105 /min Ganga Tay MD Work Phone: [facility] 08-16-2024 14:18-0500 SaO2% (BldA) [Mass fraction] 92 % Ganga Tay MD Work Phone: [facility] 08-16-2024 14:18-0500 Systolic blood pressure 150 mm[Hg] Ganga Tay MD Work Phone: [facility] 08-09-2024 15:43-0500 Body height 175.3 cm Ganga Tay MD Work Phone: [facility] 08-09-2024 15:43-0500 Diastolic blood pressure 88 mm[Hg] Ganga Tay MD Work Phone: [facility] 08-09-2024 15:43-0500 Heart rate 93 /min Ganga Tay MD Work Phone: [facility] 08-09-2024 15:43-0500 SaO2% (BldA) [Mass fraction] 98 % Ganga Tay MD Work Phone: [facility] 08-09-2024 15:43-0500 Systolic blood pressure 160 mm[Hg] Ganga Tay MD Work Phone: [facility] 08-03-2024 13:30-0500 Diastolic blood pressure 118 mm[Hg] Aly Hess DO Work Phone: [facility] 08-03-2024 13:30-0500 Heart rate 67 /min Aly Hess DO Work Phone: [facility] 08-03-2024 13:30-0500 Respiratory rate 17 /min Aly Hess DO Work Phone: [facility] 08-03-2024 13:30-0500 SaO2% (BldA) [Mass fraction] 95 % Aly Hess DO Work Phone: [facility] 08-03-2024 13:30-0500 Systolic blood pressure 185 mm[Hg] Aly Hess DO Work Phone: [facility] 08-03-2024 11:22-0500 Body temperature 98.1 [degF] Aly Hess DO Work Phone: [facility] 08-03-2024 11:15-0500 Body height 175.3 cm Aly Hess DO Work Phone: [facility] 08-03-2024 11:15-0500 Body mass index (BMI) [Ratio] 32.78 kg/m2 Aly Hess DO Work Phone: [facility] 08-03-2024 11:15-0500 Body weight 100.7 kg Aly Hess DO Work Phone: [facility] 07-05-2024 14:13-0400 Body height 175.3 cm Doyle Garcia RADIAL DRILL OPERATOR-GRADUATING MACHINE OPERATOR Work Phone: [facility] 07-05-2024 14:13-0400 Body mass index (BMI) [Ratio] 32.81 kg/m2 Doyle Garcia RADIAL DRILL OPERATOR-GRADUATING MACHINE OPERATOR Work Phone: [facility] 07-05-2024 14:13-0400 Body temperature 97.39 [degF] Doyle Garcia RADIAL DRILL OPERATOR-GRADUATING MACHINE OPERATOR Work Phone: [facility] 07-05-2024 14:13-0400 Body weight 100.79 kg Doyle Garcia RADIAL DRILL OPERATOR-GRADUATING MACHINE OPERATOR Work Phone: [facility] 07-05-2024 14:13-0400 Diastolic blood pressure 92 mm[Hg] Doyle Garcia RADIAL DRILL OPERATOR-GRADUATING MACHINE OPERATOR Work Phone: [facility] 07-05-2024 14:13-0400 Heart rate 94 /min Doyle Garcia RADIAL DRILL OPERATOR-GRADUATING MACHINE OPERATOR Work Phone: [facility] 07-05-2024 14:13-0400 Respiratory rate 18 /min Doyle Garcia RADIAL DRILL OPERATOR-GRADUATING MACHINE OPERATOR Work Phone: [facility] 07-05-2024 14:13-0400 SaO2% (BldA) [Mass fraction] 94 % Doyle Garcia RADIAL DRILL OPERATOR-GRADUATING MACHINE OPERATOR Work Phone: [facility] 07-05-2024 14:13-0400 Systolic blood pressure 155 mm[Hg] Doyle Garcia RADIAL DRILL OPERATOR-GRADUATING MACHINE OPERATOR Work Phone: [facility] 08-26-2023 15:17-0500 Body height 175.3 cm Ganga Tay MD Work Phone: [facility] 08-26-2023 15:17-0500 Body mass index (BMI) [Ratio] 33.02 kg/m2 Ganga Tay MD Work Phone: [facility] 08-26-2023 15:17-0500 Body weight 101.42 kg Ganga Tay MD Work Phone: [facility] 08-26-2023 15:17-0500 Diastolic blood pressure 84 mm[Hg] Ganga Tay MD Work Phone: [facility] 08-26-2023 15:17-0500 Heart rate 89 /min Ganga Tay MD Work Phone: [facility] 08-26-2023 15:17-0500 SaO2% (BldA) [Mass fraction] 93 % Ganga Tay MD Work Phone: [facility] 08-26-2023 15:17-0500 Systolic blood pressure 144 mm[Hg] Ganga Tay MD Work Phone: [facility] 11-05-2022 10:19-0500 Body height 175.26 cm Ganga Tay Work Phone: [facility] Work Phone: 08-05-2022 09:07-0500 Body height 175.26 cm Ganga Tay Work Phone: [facility] Work Phone: 08-05-2022 09:07-0500 Body mass index (BMI) [Ratio] 32.41 kg/m2 Ganga Tay Work Phone: [facility] Work Phone: 08-05-2022 09:07-0500 Body surface area Derived from formula 2.15 m2 Ganga Tay Work Phone: [facility] Work Phone: 08-05-2022 09:07-0500 Body weight 99.54 kg Ganga Tay Work Phone: [facility] Work Phone: 08-05-2022 09:07-0500 Diastolic blood pressure 88 mm[Hg] Ganga Tay Work Phone: [facility] Work Phone: 08-05-2022 09:07-0500 Heart rate 79 /min Ganga Tay Work Phone: [facility] Work Phone: 08-05-2022 09:07-0500 SaO2% (BldA) [Mass fraction] 97 % Ganga Tay Work Phone: [facility] Work Phone: 08-05-2022 09:07-0500 Systolic blood pressure 162 mm[Hg] Ganga Tay Work Phone: [facility] Work Phone: 01-31-2022 08:55-0400 Body height 175.26 cm Ganga Palacioscel Work Phone: [facility] Work Phone: 09-20-2021 14:43-0500 Body height 175.26 cm Ganga Javier Stencel Work Phone: [facility] Work Phone: 09-20-2021 14:43-0500 Body mass index (BMI) [Ratio] 31.45 kg/m2 Ganga Palacioscel Work Phone: [employer] Work Phone: 09-20-2021 14:43-0500 Body surface area Derived from formula 2.12 m2 Ganga Palacioscel Work Phone: -[facility] [employer] [facility] Work Phone: 09-20-2021 14:43-0500 Body temperature 96.9 [degF] Ganga Palacioscel Work Phone: [employer] [employer] [facility] Work Phone: 09-20-2021 14:43-0500 Body weight 96.62 kg Ganga Palacioscel Work Phone: [employer] [facility] Work Phone: 12-16-2017 15:40-0400 BMI (Body Mass Index) 29.53 kg/m2 Enzo Mason [facility] 12-16-2017 15:40-0400 Height 175.3 cm Enzo Mason [facility] 12-16-2017 15:40-0400 Weight 90.72 kg Enzo Mason [facility] Encounters Encounter Date Encounter Type Care Provider Facility Start: 05-13-2025 Encounter for other preprocedural examination Praveen Alvarenga [facility] Start: 05-10-2025 End: 05-10-[address] Praveen Alvarenga MD -[facility] Work Phone: Start: 05-10-2025 End: 05-10-[address] Ganga Tay MD Work Phone: -[facility] Start: 04-28-2025 End: 04-28-2025 Office outpatient visit 15 minutes Ganga Tay MD Work Phone: [facility] Comment on above: Lumbar radiculopathy (Primary Dx); Nicotine dependence, cigarettes, uncomplicated; Primary hypertension; Mixed hyperlipidemia; Type 2 diabetes mellitus without complication, without long-term current use of insulin; Acquired hypothyroidism Start: 04-28-2025 End: 04-28-2025 ambulatory [facility] Start: 02-18-2025 End: 02-18-[address] Praveen Alvarenga MD -[facility] Work Phone: Start: 02-18-2025 End: 02-18-2025 ambulatory No Primary Care Physician [facility] Work Phone: Start: 02-16-2025 End: 02-16-2025 Office outpatient visit 25 minutes Ganga Tay MD Work Phone: [facility] Comment on above: Primary hypertension (Primary Dx); Type 2 diabetes mellitus without complication, without long-term current use of insulin; Mixed hyperlipidemia; Allergic rhinitis, unspecified seasonality, unspecified trigger; Acquired hypothyroidism; Nicotine dependence, cigarettes, uncomplicated; Lumbar radiculopathy Start: 02-16-2025 End: 02-16-2025 ambulatory [facility] Start: 01-27-2025 End: 01-27-2025 ambulatory No Primary Care Physician [facility] Work Phone: Start: 01-27-2025 End: 01-27-2025 Patient encounter procedure Ayleen MURRAY -[facility] Work Phone: Start: 01-27-2025 End: 01-27-2025 ambulatory Ayleen House Facility:[facility] Start: 01-13-2025 End: 01-13-2025 Patient encounter procedure Ayleen MURRAY -[facility] Work Phone: Start: 01-13-2025 End: 01-13-2025 ambulatory [facility] Facility:[facility] Start: 01-03-2025 End: 01-03-2025 ambulatory No Primary Care Physician [facility] Work Phone: Start: 01-03-2025 End: 01-03-2025 Patient encounter procedure Ayleen House TERRI -MRI - [facility] Work Phone: Start: 01-03-2025 End: 01-03-2025 ambulatory Ayleenkanwal House Facility:[facility] Start: 11-29-2024 End: 11-29-2024 Patient encounter procedure Ayleen House TERRI -[facility] Work Phone: Start: 11-29-2024 End: 11-29-2024 ambulatory Ayleen House Facility:[facility] Start: 11-15-2024 End: 11-15-2024 Office outpatient visit 25 minutes Ganga Tay MD Work Phone: [facility] Comment on above: Lumbar radiculopathy (Primary Dx); Pulmonary emphysema, unspecified emphysema type (Multi); Type 2 diabetes mellitus without complication, without long-term current use of insulin (Multi) Start: 11-15-2024 End: 11-15-2024 ambulatory [facility] Start: 11-02-2024 End: 11-02-2024 Office outpatient visit 15 minutes Raul lFetcher RADIAL DRILL OPERATOR-GRADUATING MACHINE OPERATOR Work Phone: [facility] Comment on above: Spinal stenosis of l umbar region with neurogenic claudication (Primary Dx); Lumbar radiculopathy Start: 11-02-2024 End: 11-02-2024 ambulatory [facility] Start: 10-11-2024 End: 10-11-2024 ambulatory [facility] Start: 10-11-2024 End: 10-11-2024 Office outpatient visit 15 minutes Ganga Tay MD Work Phone: [facility] Comment on above: Lumbar radiculopathy (Primary Dx); Primary hypertension Start: 10-11-2024 End: 10-11-2024 ambulatory [facility] Start: 10-01-2024 End: 10-01-2024 ambulatory [facility] Start: 09-24-2024 End: 09-24-2024 Subsequent hospital visit by physician Thomas Alexandra DO Work Phone: [facility] [place] Comment on above: Lumbar radiculopathy Start: 09-24-2024 End: 09-24-2024 ambulatory THOMAS ALEXANDRA [facility] Start: 09-01-2024 End: 09-01-2024 ambulatory SRI M NICOLASA [facility] Start: 08-30-2024 End: 08-30-2024 Assay of hemosiderin, quant Ganga Tay MD Work Phone: [facility] Work Phone: Start: 08-30-2024 End: 08-30-2024 Patient encounter procedure Ganga Tay MD Work Phone: [facility] Comment on above: Routine general medi esteban examination at health care facility (Primary Dx); Lumbar radiculopathy; Mixed hyperlipidemia; Primary hypertension Start: 08-30-2024 End: 08-30-2024 ambulatory [facility] Start: 08-30-2024 End: 08-30-2024 Encounter for general adult medical examination without abnormal findings [facility] Start: 08-24-2024 End: 08-24-2024 ambulatory [facility] Start: 08-24-2024 End: 08-24-2024 Office outpatient new 45 minutes Raul Fletcher RADIAL DRILL OPERATOR-GRADUATING MACHINE OPERATOR Work Phone: [facility] Comment on above: Lumbar radiculopathy (Primary Dx); Acute midline low back pain without sciatica Start: 08-24-2024 End: 08-24-2024 ambulatory RAUL FLETCHER [facility] Start: 08-23-2024 End: 08-23-2024 ambulatory [facility] Start: 08-16-2024 End: 08-16-2024 Office outpatient visit 25 minutes Ganga Tay MD Work Phone: [facility] Comment on above: Acute midline low ba ck pain without sciatica (Primary Dx); Primary hypertension; Hyponatremia; Lumbar radiculopathy Start: 08-16-2024 End: 08-16-2024 ambulatory [facility] Start: 08-09-2024 End: 08-09-2024 Office outpatient visit 25 minutes Ganga Tay MD Work Phone: [facility] Comment on above: Acute midline low ba ck pain without sciatica (Primary Dx); Lumbar radiculopathy; Hyponatremia Start: 08-09-2024 End: 08-09-2024 ambulatory [facility] Start: 08-03-2024 End: 08-03-2024 Emergency department patient visit Aly Hess DO Work Phone: [facility] [place] [facility] Comment on above: Acute midline low ba ck pain without sciatica (Primary Dx); Hyponatremia Start: 07-05-2024 End: 07-05-2024 Patient encounter procedure Doyle Garcia RADIAL DRILL OPERATOR-GRADUATING MACHINE OPERATOR Work Phone: [facility] Comment on above: Acute bronchitis, un specified organism (Primary Dx) Start: 07-05-2024 End: 07-05-2024 ambulatory [facility] Start: 05-25-2024 End: 05-25-2024 ambulatory [facility] Start: 09-08-2023 End: 09-08-2023 Subsequent hospital visit by physician Garcia Rivera [address] [place] [address] Comment on above: Nicotine dependence, cigarettes, uncomplicated Start: 08-26-2023 End: 08-26-2023 Assay of hemosiderin, quant Ganga Tay MD Work Phone: [facility] Work Phone: Start: 08-26-2023 End: 08-26-2023 Patient encounter procedure Ganga Tay MD Work Phone: [facility] Comment on above: Routine general medi esteban examination at health care facility (Primary Dx); Nicotine dependence, cigarettes, uncomplicated; Acquired hypothyroidism; Allergic rhinitis, unspecified seasonality, unspecified trigger; Mixed hyperlipidemia; Hypertension, unspecified type; Breast cancer screening by mammogram; Vitamin B 12 deficiency; Bilateral carpal tunnel syndrome; Other emphysema ([facility] Start: 02-18-2023 End: 02-18-2023 Office outpatient visit 15 minutes Ganga Tay MD Work Phone: [facility] [employer] [facility] Comment on above: Insomnia, unspecifie d type (Primary Dx); Hypothyroidism, unspecified type; Mixed hyperlipidemia Start: 11-05-2022 Office outpatient vi sit 15 minutes Ganga Tay Work Phone: [facility] [facility] Work Phone: Start: 08-21-2022 Chart Update Ganga mahoney Work Phone: [facility] [facility] Work Phone: Start: 08-20-2022 ambulatory Ganga Gtz acility:[id number] Start: 08-05-2022 Adv care pln/ no alt dcsn mkr docd or refusal Ganga Tay Work Phone: [facility] [facility] Work Phone: Start: 07-29-2022 Chart Update Ganga mahoney Work Phone: [facility] [facility] Work Phone: Start: 07-29-2022 ambulatory Ganga Gtz acility:[id number] Start: 01-31-2022 Phys/qhp telephone evaluation 11-20 min Ganga Tay Work Phone: [facility] [facility] Work Phone: Start: 01-31-2022 KANE, Provider : Ganga Tay, Status: Pen, Time: 9:00 AM Ganga Tay Work Phone: [facility] [facility] Work Phone: Start: 01-29-2022 AUDIT Ganga mahoney Work Phone: [facility] [facility] Work Phone: Start: 09-24-2021 End: 09-24-2021 ambulatory Rubén Bahena Facility:[id number] Start: 09-20-2021 Phys/qhp telephone evaluation 11-20 min Ganga Tay Work Phone: [facility] Work Phone: Start: 07-24-2021 Chart Update Ganga Concepcion Palacios david Work Phone: [facility] Work Phone: Start: 10-30-2020 End: 10-30-2020 Orders Only Dorita Franco Craigjaniya Work Phone: [facility] Start: 08-28-2020 End: 08-29-2020 Patient encounter procedure GANGA TAY [facility] Start: 12-16-2017 End: 12-16-2017 Ambulatory GANGA TAY [facility] Amb[facility] tor Start: 12-16-2017 Office/outpatient vi sit, est, level 3 Gagna Quan Jasvir Work Phone: [facility] Procedures Date Procedure Procedure Detail Performing Clinician Start: 01-27-2025 Dual energy X-ray absorptiometry No Primary Care Physician Start: 01-03-2025 MRI of lumbar spine No Primary Care Physician Start: 11-29-2024 X-ray of lumbosacral spine No Primary Care Physician Start: 09-24-2024 FL PAIN MANAGEMENT Chela Fletcher RADIAL DRILL OPERATOR-GRADUATING MACHINE OPERATOR Work Phone: Start: 09-24-2024 Njx dx/ther sbst int rlmnr lmbr/sac w/img gdn Raul Fletcher RADIAL DRILL OPERATOR-GRADUATING MACHINE OPERATOR Work Phone: Start: 09-24-2024 Glucose quantitative blood xcpt reagent strip Thomas Alexandra DO Work Phone: Start: 08-03-2024 Comprehensive metabo lic panel Aly Hess DO Work Phone: Start: 08-03-2024 Ct lumbar spine w/o contrast material Aly Hess DO Work Phone: Start: 08-03-2024 Urinalysis microscop ic panel - Urine Qualitative by Automated Aly Hess DO Work Phone: Start: 08-03-2024 Urnls dip stick/tabl et reagent auto microscopy Aly Hess DO Work Phone: Start: 08-03-2024 Ecg routine ecg w/le ast 12 lds trcg only w/o i&r Aly Hess DO Work Phone: Start: 05-25-2024 Lipid 1996 panel - S júnior or Plasma Doyle Garcia RADIAL DRILL [employer] Work Phone: Start: 05-25-2024 Thyrotropin [Units/v olume] in Serum or Plasma Doyle Garcia RADIAL DRILL OPERATOR-GRADUATING MACHINE OPERATOR Work Phone: Start: 09-08-2023 CT Chest for screening Ganga Tay MD Work Phone: Start: 08-27-2023 Lipid 1996 panel - S júnior or Plasma Garcia 1 Start: 08-27-2023 Mammography Garcia 1 Start: 08-27-2023 Thyrotropin [Units/v olume] in Serum or Plasma Garcia 1 Start: 07-29-2022 Lipid 1996 panel - S júnior or Plasma Ganga Tay MD Work Phone: Start: 07-29-2022 Mammography Ganga Barry MD Work Phone: Start: 07-29-2022 Thyrotropin [Units/v olume] in Serum or Plasma Ganga Tay MD Work Phone: Start: 09-04-2020 Colonoscopy Ganga Barry MD Work Phone: Start: 12-16-2017 End: 12-16-2017 Inj tendon sheath/ligament Enzo Mason Work Phone: section Ganga fournier Work Phone: Operation on thyroid gland Marily Tay Work Phone: Tonsillectomy Ganga mahoney Work Phone: Comment on above: 1972; Plan of Treatment Date Care Activity Detail Author Start: 09-04-2030 Screening for malign ant neoplasm of colon [facility] Start: 08-27-2028 Lipid panel Lipid Panel [facility] Start: 07-29-2027 Lipid panel Lipid Panel [facility] Start: 01-27-2027 Screening for osteoporosis Bone Density Scan [facility] Start: 01-01-2026 DTaP/Tdap/Td Vaccine s (2 - Td or Tdap) DTaP/Tdap/Td Vaccines (2 - Td or Tdap) [facility] Start: 01-01-2026 Tetanus vaccination Tetanus: Every 1 0yrs [facility] Start: 09-04-2025 Screening for malign ant neoplasm of colon [facility] Start: 08-31-2025 Medicare Annual Well ness Visit Medicare Annual Wellness Visit (AWV) [facility] Start: 08-26-2025 End: 08-26-2025 Patient encounter procedure 08/26/2025 10:00 AM EST Office Visit [place] [address] [phone] Ganga Tay MD [address] [place] [id number] [facility] Start: 07-05-2025 Pneumococcal vaccination Pneum ococcal Vaccine (3 of 3 - PCV20 or PCV21) [facility] Start: 05-25-2025 Lipid panel Lipid Panel [facility] Start: 05-25-2025 Thyroid stimulating hormone measurement TSH Level [facility] Start: 05-25-2025 Urine screening for protein Diabetes: Urine Protein Screening [facility] Start: 05-23-2025 Influenza vaccination [facility] Start: 05-16-2025 ambulatory Ambulatory Facility:[facility] Start: 02-16-2025 End: 02-16-2026 CBC panel - Blood by Automated count CBC Lab Routine Type 2 diabetes mellitus without complication, without long-term current use of insulin Primary hypertension Mixed hyperlipidemia Expected: 02/16/2025 (Approximate), Expires: 02/16/2026 [facility] Service Area Work Phone: Comment on above: Expected: 02/16/2025 (Approximate), Expires: 02/16/2026 Start: 02-16-2025 End: 02-16-2026 Comprehensive metabolic 2000 panel - Serum or Plasma Comprehensive Metabolic Panel Lab Routine Type 2 diabetes mellitus without complication, without long-term current use of insulin Primary hypertension Mixed hyperlipidemia Expected: 02/16/2025 (Approximate), Expires: 02/16/2026 [facility] Work Phone: Comment on above: Expected: 02/16/2025 (Approximate), Expires: 02/16/2026 Start: 02-16-2025 End: 02-16-2026 Hemoglobin A1c/Hemoglobin.total in Blood Hemoglobin A1C Lab Routine Type 2 diabetes mellitus without complication, without long-term current use of insulin Expected: 02/16/2025 (Approximate), Expires: 02/16/2026 [facility] Work Phone: Comment on above: Expected: 02/16/2025 (Approximate), Expires: 02/16/2026 Start: 02-16-2025 End: 02-16-2026 Lipid 1996 panel - Serum or Plasma Lipid Panel Lab Routine Type 2 diabetes mellitus without complication, without long-term current use of insulin Mixed hyperlipidemia Expected: 02/16/2025 (Approximate), Expires: 02/16/2026 [facility] Work Phone: Comment on above: Expected: 02/16/2025 (Approximate), Expires: 02/16/2026 Start: 02-16-2025 End: 02-16-2026 Thyrotropin [Units/volume] in Serum or Plasma Thyroid Stimulating Hormone Lab Routine Acquired hypothyroidism Expected: 02/16/2025 (Approximate), Expires: 02/16/2026 [facility] Work Phone: Comment on above: Expected: 02/16/2025 (Approximate), Expires: 02/16/2026 Start: 02-16-2025 End: 02-16-2025 Patient encounter procedure 02/16/2025 10:00 AM EDT Office Visit [place] [address] [phone] Ganga Tay MD [address] [address] [facility] Start: 02-12-2025 Hemoglobin A1c measurement Diabetes: Hemoglobin A1C [facility] Start: 11-15-2024 End: 11-15-2025 Hemoglobin A1c/Hemoglobin.total in Blood Hemoglobin A1C Lab Routine Type 2 diabetes mellitus without complication, without long-term current use of insulin (Multi) Expected: 11/15/2024 (Approximate), Expires: 11/15/2025 [facility] Service Area Work Phone: Comment on above: Expected: 11/15/2024 (Approximate), Expires: 11/15/2025 Start: 11-15-2024 End: 11-15-2024 Patient encounter procedure 11/15/2024 9:40 AM EST Office Visit [place] [address] [phone] Ganga Tay MD [facility] [address] [address] [facility] Start: 11-02-2024 End: 11-02-2024 Patient encounter procedure 11/02/2024 11:00 AM EST Office Visit [facility] Medical Office [facility] [address] [place] [address] Raul Fletcher, RADIAL DRILL OPERATOR-GRADUATING MACHINE OPERATOR [address] [place] [address] [facility] Medical Office Building Start: 10-11-2024 End: 10-11-2024 Patient encounter procedure 10/11/2024 11:45 AM EST Office Visit [facility] Medical Office [facility] [address] [place] [address] Raul Fletcher, RADIAL DRILL OPERATOR-GRADUATING MACHINE OPERATOR [address] [place] [place] [address] [facility] Medical Office Building Start: 10-11-2024 End: 10-11-2024 Patient encounter procedure 10/11/2024 10:20 AM EST Office Visit [place] [id number] [phone] Ganga Tay MD [address] [address] [facility] Start: 09-30-2024 End: 08-30-2025 Basic metabolic 2000 panel - Serum or Plasma Basic Metabolic Panel Lab Routine Primary hypertension Expected: 09/30/2024 (Approximate), Expires: 08/30/2025 [facility] Service Area Work Phone: Comment on above: Expected: 09/30/2024 (Approximate), Expires: 08/30/2025 Start: 09-01-2024 End: 09-01-2024 ambulatory 09/01/2024 11:30 AM EST Treatment [facility] [address] [place] [address] Sri Baldwin, [facility] [address] [facility] [place] [address] [facility] Start: 08-30-2024 End: 08-30-2024 Patient encounter procedure [facility] [facility] Start: 08-27-2024 Medicare Annual Well ness Visit Medicare Annual Wellness Visit (AWV) [facility] Start: 08-27-2024 Screening for malign ant neoplasm of breast Mammogram [facility] Start: 08-27-2024 Thyroid stimulating hormone measurement TSH Level [facility] Start: 08-24-2024 End: 08-24-2025 Epidural steroid injection Epidural Steroid Injection Pain Management Routine Lumbar radiculopathy Expected: 08/24/2024, Expires: 08/24/2025 [facility] Work Phone: Comment on above: Expected: 08/24/2024 , Expires: 08/24/2025 Start: 08-24-2024 End: 08-24-2025 FL pain management FL pain management Imaging Routine Lumbar radiculopathy Expected: 08/24/2024 (Approximate), Expires: 08/24/2025 [facility] Service Area Work Phone: Comment on above: Expected: 08/24/2024 (Approximate), Expires: 08/24/2025 Start: 08-24-2024 Hemoglobin A1c measurement Diabetes: Hemoglobin A1C [facility] Start: 08-23-2024 End: 08-23-2024 ambulatory 08/23/2024 12:45 PM EST Evaluation [facility] [address] [place] [address] Manuel Sprague, PT [address] [facility] [place] [address] [facility] Start: 08-23-2024 End: 08-23-2024 Patient encounter procedure 08/23/2024 10:15 AM EST Office Visit [facility] Medical Office Building [address] [place] [address] Raul Fletcher, RADIAL DRILL OPERATOR-GRADUATING MACHINE OPERATOR [address] [place] [address] [facility] Medical Office Building Start: 08-16-2024 End: 08-16-2024 Patient encounter procedure 08/16/2024 2:20 PM EST Office Visit [address] [phone] Ganga Tay MD [facility] E [place] [id number] [facility] Start: 08-16-2024 End: 08-16-2025 Basic metabolic 2000 panel - Serum or Plasma Basic Metabolic Panel Lab Routine Primary hypertension Expected: 08/16/2024 (Approximate), Expires: 08/16/2025 [facility] Service Area Work Phone: Comment on above: Expected: 08/16/2024 (Approximate), Expires: 08/16/2025 Start: 08-09-2024 End: 08-09-2024 Patient encounter procedure 08/09/2024 3:40 PM EST Office Visit [place] [address] [address] [facility] [address] [place] [address] Ganga Tay MD [address] [address] [facility] Start: 05-23-2024 COVID-19 Vaccine () COVID-19 Vaccine () [facility] Start: 05-23-2024 COVID-19 Vaccine () COVID-19 Vaccine () [facility] Start: 05-23-2024 Influenza vaccination Influenza Vacc ine (#1) [facility] Start: 08-27-2023 End: 08-27-2023 Professional / ancillary services management 08/27/2023 8:45 AM EST Ancillary Procedure [facility] [address] [facility] [address] [place] [address] [facility] Start: 08-26-2023 End: 08-26-2024 CBC panel - Blood by Automated count CBC Lab Routine Mixed hyperlipidemia Hypertension, unspecified type Expected: 08/26/2023 (Approximate), Expires: 08/26/2024 [facility] Service Area Work Phone: Comment on above: Expected: 08/26/2023 (Approximate), Expires: 08/26/2024 Start: 08-26-2023 End: 08-26-2024 Cobalamin (Vitamin B12) [Mass/volume] in Serum or Plasma Vitamin B12 Lab Routine Vitamin B 12 deficiency Expected: 08/26/2023 (Approximate), Expires: 08/26/2024 [facility] Work Phone: Comment on above: Expected: 08/26/2023 (Approximate), Expires: 08/26/2024 Start: 08-26-2023 End: 08-26-2024 Comprehensive metabolic 2000 panel - Serum or Plasma Comprehensive Metabolic Panel Lab Routine Mixed hyperlipidemia Hypertension, unspecified type Expected: 08/26/2023 (Approximate), Expires: 08/26/2024 [facility] Work Phone: Comment on above: Expected: 08/26/2023 (Approximate), Expires: 08/26/2024 Start: 08-26-2023 End: 08-26-2024 CT Chest for screening WO contrast CT lung screening follow up CT chest wo IV contrast Imaging Routine Nicotine dependence, cigarettes, uncomplicated Expected: 08/26/2023, Expires: 08/26/2024 [facility] Work Phone: Comment on above: Expected: 08/26/2023 , Expires: 08/26/2024 Start: 08-26-2023 End: 10-27-2024 DBT Breast - bilateral BI mammo bilateral screening tomosynthesis Imaging Routine Breast cancer screening by mammogram Expected: 08/26/2023, Expires: 10/27/2024 [facility] Work Phone: Comment on above: Expected: 08/26/2023 , Expires: 10/27/2024 Start: 08-26-2023 End: 08-26-2024 Lipid 1996 panel - Serum or Plasma Lipid Panel Lab Routine Mixed hyperlipidemia Hypertension, unspecified type Expected: 08/26/2023 (Approximate), Expires: 08/26/2024 [facility] Work Phone: Comment on above: Expected: 08/26/2023 (Approximate), Expires: 08/26/2024 Start: 08-26-2023 End: 08-26-2024 Thyrotropin [Units/volume] in Serum or Plasma Thyroid Stimulating Hormone Lab Routine Acquired hypothyroidism Expected: 08/26/2023 (Approximate), Expires: 08/26/2024 [facility] Work Phone: Comment on above: Expected: 08/26/2023 (Approximate), Expires: 08/26/2024 Start: 07-29-2023 Screening for malign ant neoplasm of breast Mammogram [facility] Start: 07-29-2023 Thyroid stimulating hormone measurement TSH Level [facility] Start: 07-24-2023 Screening for malign ant neoplasm of colon FIT-DNA (Cologuard) [facility] Start: 05-23-2023 Influenza vaccination U [facility] Start: 02-18-2023 End: 02-19-2024 CBC panel - Blood by Automated count CBC Lab Routine Insomnia, unspecified type Hypothyroidism, unspecified type Mixed hyperlipidemia Expected: 02/18/2023 (Approximate), Expires: 02/19/2024 [facility] Service Area Work Phone: Comment on above: Expected: 02/18/2023 (Approximate), Expires: 02/19/2024 Start: 02-18-2023 End: 02-19-2024 Comprehensive metabolic 2000 panel - Serum or Plasma Comprehensive Metabolic Panel Lab Routine Insomnia, unspecified type Hypothyroidism, unspecified type Mixed hyperlipidemia Expected: 02/18/2023 (Approximate), Expires: 02/19/2024 [facility] Work Phone: Comment on above: Expected: 02/18/2023 (Approximate), Expires: 02/19/2024 Start: 02-18-2023 End: 02-19-2024 Lipid 1996 panel - Serum or Plasma Lipid Panel Lab Routine Mixed hyperlipidemia Expected: 02/18/2023 (Approximate), Expires: 02/19/2024 [facility] Work Phone: Comment on above: Expected: 02/18/2023 (Approximate), Expires: 02/19/2024 Start: 02-18-2023 End: 02-19-2024 Thyrotropin [Units/volume] in Serum or Plasma Thyroid Stimulating Hormone Lab Routine Hypothyroidism, unspecified type Expected: 02/18/2023 (Approximate), Expires: 02/19/2024 [facility] Work Phone: Comment on above: Expected: 02/18/2023 (Approximate), Expires: 02/19/2024 Start: 02-03-2023 KANE, Provider : Ganga Tay, Status: Pen, Time: 10:20 AM KANE, Provider: Ganga Tay, Status: Pen, Time: 10:20 AM [facility] Work Phone: Start: 11-05-2022 VIRFUVHOME, Provider : Ganga Tay, Status: Pen, Time: 10:00 AM VIRFUVBILLE, Provider: Ganga Tay, Status: Pen, Time: 10:00 AM [employer] [facility] Work Phone: Start: 08-05-2022 EPV, Provider: Ganga Tay, Status: Pen, Time: 9:00 AM EPV, Provider: Ganga Tay, Status: Pen, Time: 9:00 AM [employer] [facility] Work Phone: Start: 01-31-2022 EPV, Provider: Ganga Tay, Status: Pen, Time: 9:00 AM EPV, Provider: Ganga Tay, Status: Pen, Time: 9:00 AM [employer] [facility] Work Phone: Start: 08-02-2021 EPV, Provider: Ganga Tay, Status: Pen, Time: 9:00 AM EPV, Provider: Ganga Tay, Status: Pen, Time: 9:00 AM [employer] [facility] Work Phone: Start: 07-05-2021 Pneumococcal vaccination Pneum ococcal Vaccine Age 65+ (2 of 2 - PPSV23) [facility] Start: 07-05-2021 Pneumococcal Vaccine : 65+ Years (3 - PPSV23 if available, else PCV20) Pneumococcal Vaccine: 65+ Years (3 - PPSV23 if available, else PCV20) [facility] Start: 07-05-2021 Pneumococcal Vaccine : 65+ Years (3 - PPSV23 or PCV20) Pneumococcal Vaccine: 65+ Years (3 - PPSV23 or PCV20) [facility] Start: 07-05-2021 Pneumococcal Vaccine : 65+ Years (3 of 3 - PPSV23 or PCV20) Pneumococcal Vaccine: 65+ Years (3 of 3 - PPSV23 or PCV20) [facility] Start: 01-22-2021 COVID-19 Vaccine (2 - Booster for Last series) COVID-19 Vaccine (2 - Booster for Last series) [facility] Start: 05-23-2020 Influenza vaccinatio n given Sequential Influenza Vaccine (#1) [facility] Start: 01-06-2018 Ambulatory 01/06/2018 Off ice Visit Sports Medicine Enzo Mason MD [address] [place] [address] [phone] [facility] Start: 05-23-2017 Influenza vaccination SEQUENTI AL INFLUENZA VACCINE (#1) [facility] Start: 2013 RSV High Risk: (Elde rly (60+) or Population) (1 - Risk 60-74 years 1-dose series) RSV High Risk: (Elderly (60+) or Population) (1 - Risk 60-74 years 1-dose series) [facility] Start: 2013 RSV patient s and/or patients aged 60+ years (1 - 1-dose 60+ series) RSV patients and/or patients aged 60+ years (1 - 1-dose 60+ series) [facility] Start: 2013 Zoster vacc, sc ZOSTER VACCINE [facility] Start: 2003 Administration of he rpes zoster vaccine Zoster Vaccines (1 of 2) [facility] Start: 2003 Screening for malign ant neoplasm of colon [facility] Start: 2003 Zoster Vaccines (1 of 2) Zoster Vacc rachid (1 of 2) [facility] Start: 1972 Hepatitis A Vaccines (1 of 2 - Risk 2-dose series) Hepatitis A Vaccines (1 of 2 - Risk 2-dose series) [facility] Start: 1971 Diabetes mellitus screening Diabetes Screening [facility] Start: 1971 Hepatitis C antibody , confirmatory test Hepatitis C Screening [facility] Start: 1971 Hepatitis C screening Hepatitis C Sc reening [facility] Start: 1969 COVID-19 Vaccine (1 of 2) COVID-19 Vaccine (1 of 2) [facility] Start: 1965 Adolescent depressio n screening assessment Depression Screening (PHQ9) [facility] Start: 1963 Glaucoma screening Diabetes: R etinopathy Screening [facility] Start: 1956 History and physical examination, annual for health maintenance Wellness Visit [facility] Start: 1954 MMR Vaccines (1 of 1 - Standard series) MMR Vaccines (1 of 1 - Standard series) [facility] [facility] Start: 1955 Fall risk assessment Falls Risk Hari bergman [facility] Start: 1955 HEPATITIS C SCREENING HEPATITIS C SC RUBEN [facility] Start: 1955 Medicare Annual Well ness Visit Medicare Annual Wellness Visit (AWV) [facility] Start: 1955 Screening colonoscopy COLONOSCOPY O [facility] Start: 1955 Screening for malign ant neoplasm of cervix PAP SMEAR [facility] Start: 1955 Screening for malign ant neoplasm of colon [facility] Start: 1955 Screening for osteoporosis Dexa Scan [facility] Start: 1955 Screening mammography Mammogram O [facility] Start: 1955 Tetanus vaccination TETANUS EVERY 10 YR [facility] End: 08-03-2024 Bacteria identified in Urine by Culture [facility] Work Phone: Comment on above: Once (Lab) for 1 Occ urrences starting 08/03/2024 until 08/03/2024 ECG 12 Lead ECG 12 Lead ECG STAT 08/03/2024 11:20 AM EST [facility] Work Phone: End: 08-03-2024 Extra Urine Stout Tube [facility] Work Phone: Comment on above: Once for 1 Occurrenc es starting 08/03/2024 until 08/03/2024 End: 09-24-2024 Glucose [Mass/volume] in Serum or Plasma POCT Glucose Point of Care Testing - Docked Device Routine Once (Lab) for 1 Occurrences starting 09/24/2024 until 09/24/2024 [facility] Service Area Work Phone: Comment on above: Once (Lab) for 1 Occ urrences starting 09/24/2024 until 09/24/2024 INJECT TENDON SHEATH INJECT TEND ON SHEATH Routine Trigger thumb, left thumb 12/16/2017 5:08 PM EDT [facility] Patient referral [facility] Work Phone: End: 08-03-2024 Troponin I.cardiac panel - Serum or Plasma by High sensitivity method [facility] Work Phone: Comment on above: STAT (Lab) for 1 Occ urrences starting 08/03/2024 until 08/03/2024 Once for 1 Occurrenc es starting 08/03/2024 until 08/03/2024 End: 08-03-2024 Urinalysis complete W Reflex Culture panel - Urine [facility] Service Area Work Phone: Comment on above: STAT (Lab) for 1 Occ urrences starting 08/03/2024 until 08/03/2024 Immunizations Immunization Date Immunization Notes Care Provider Fa cility 10-12-2021 influenza, high dose seasonal, preservative-free Ganga Tay Work Phone: -[facility] Work Phone: 10-12-2021 influenza virus vacc ine, unspecified formulation Ganga Tay MD Work Phone: [facility] Work Phone: 11-27-2020 Last COVID-19 Vac cine 0.5 ML Intramuscular Suspension Ganga Tay Work Phone: [facility] 07-05-2020 pneumococcal conjuga te vaccine, 13 valent; Translations: [Prevnar 13 Intramuscular Suspension] Ganga Tay Work Phone: -[facility] Work Phone: Comment on above: Series: 06-22-2020 influenza, seasonal, injectable Ganga Tay Work Phone: -[facility] Work Phone: Comment on above: Series: 01-02-2016 tetanus toxoid, redu chon diphtheria toxoid, and acellular pertussis vaccine, adsorbed Ganga Tay Work Phone: [facility] Comment on above: Series: 08-16-2014 pneumococcal polysaccharide vaccine, 23 valent Ganga Tay Work Phone: [facility] Comment on above: Series: 08-16-2014 pneumococcal vaccine , unspecified formulation No Primary Care Physician [facility] Payers Date Payer Category Payer Self-pay 2022 [employer] ( and others) [id number] 2022 For Life (TFL) [id number] [id number] 2022 [employer] ( and others) [id number] 2019 Medicare HUMANA MANAGED M EDICARE HUMANA MCR ADVANTAGE CHOICE PPO [id number] 2019-Present [id number] 2019 Medicare HUMANA MEDICARE HUMANA GOLD CHOICE [id number] 2019-Present [address] [place] [id number]. [id number] 2019 Medicare (Managed Care) HUMANA G OLD CHOICE [id number] 2019 Medicare [id number] 2017 Unknown [place] FOR [place] RAMANDEEP [id number] 2017-Present [id number] [id number]. [id number] 2017 Unknown [id number] 2014 Unknown [id number] 1953 Unknown [id number] 2.16.840.1.287900.3.579.2. 903 1953 Unknown [id number] 2.16.840.1.977428.3.579.2. 9 1953 Unknown [id number] 2.16.840.1.204336.3.579.2. 9 1953 Unknown [id number] 2.16.840.1.920813.3.579.2. 106 1953 Unknown [id number] 2.16.840.1.369878.3.579.2. 1242 1953 Unknown [id number] 2.16.840.1.795231.3.579.2. 1242 1953 Unknown [id number] 2.16.840.1.172721.3.579.2. 1242 1953 Unknown [id number] 2.16.840.1.720955.3.579.2. 1242 1953 Unknown [id number] 2.16.840.1.741820.3.579.2. 1242 1953 Unknown [id number] 2.16.840.1.781956.3.579.2. 1242 1953 Unknown [id number] 2.16.840.1.927219.3.579.2. 1242 1953 Unknown [id number] 2.16.840.1.718883.3.579.2. 1242 1953 Unknown [id number] 2.16.840.1.183965.3.579.2. 1244 1953 Unknown [id number] 2.16.840.1.901002.3.579.2. 1244 1953 Unknown [id number] 2.16.840.1.546192.3.579.2. 1244 1953 Unknown [id number] 2.16.840.1.526626.3.579.2. 1244 1953 Unknown [id number] 2..840.1.055107.3.579.2. 1244 1953 Unknown [id number] 2.16.840.1.204065.3.579.2. 1244 1953 Unknown [id number] 2..840.1.299578.3.579.2. 124 1953 Unknown [id number] 2.840.1.490567.3.579.2. 124 1953 Unknown [id number] 2.840.1.178136.3.579.2. 124 1953 Unknown [id number] 2.840.1.823899.3.579.2. 1244 Unknown [id number] .840.1.595296.3.249.13 Unknown xxxxxxxxx ..1.004874.3.249.13 Unknown Unknown [id number] Unknown [id number] .840.1.205773.3.579.2. 462 Unknown [id number] 2.840.1.010209.3.579.2. 462 Unknown [id number] .840.1.808711.3.579.2. 462 Unknown [id number] .840.1.077732.3.579.2. 462 Unknown [id number] 2.840.1.596494.3.579.2. 462 Unknown [id number] 2.840.1.996818.3.579.2. 462 Unknown [id number] 2.840.1.312902.3.579.2. 462 Unknown [id number] 2.840.1.646067.3.579.2. 462 Social History Date Type Detail Facility Start: 12-16-2017 End: 08-03-2024 Tobacco smoking status NHIS Current every day smoker [facility] Start: 12-16-2017 End: 10-11-2024 Cigarettes smoked current (pack per day) - Reported [facility] Comment on above: 5-9 CIGARETTES/DAY; Start: 1955 Sex Assigned At Not on file [facility] Start: 12-16-2017 End: 08-03-2024 Tobacco use and exposure Never used [facility] Start: 12-16-2017 End: 04-28-2025 Alcohol intake Current drinker of alcohol (finding) [facility] History of tobacco use Cigarette Smoker [facility] Work Phone: Start: 02-18-2023 End: 10-11-2024 Gender identity Not on file [facility] Work Phone: Start: 02-08-2023 End: 02-16-2025 Exposure to SARS-CoV-2 (event) Not sure [facility] Start: 1955 Sex assigned at Female [facility] Start: 08-03-2024 Gender identity Identifies as female gender (finding) [facility] Work Phone: Start: 08-03-2024 Sexual orientation Heterosexual (fin ding) [facility] Work Phone: Start: 01-07-2025 Sex Female (finding) [facility] Start: 08-17-2022 Sex Female [facility] Start: 05-02-2025 Tobacco smoking stat [facility] Current Light tobacco smoker [facility] Clinical Notes 09-17-2021 to 04-28-2025 Ganga Tay MD - 04/28/2025 10:00 AM Yana Tay MD - 02/16/2025 10:20 AM EDT Note Date & Type Note Facility 04-28-2025 History of Present illness Narrative Subjective Patient ID: Pallavi Lujan is a 69 y.o. female who presents for Pre-op Exam. HPI 69-year-old for lumbar spine surgery. Cigarette smoker is down to a third of a pack per day. She has no history of RI CHF. EKG is normal sinus rhythm from earlier this year. And labs from earlier this year show normal hepatic and renal function. She has not had preoperative assessment. We discussed activity tolerance and capacity and she can perform a 4 met workload Currently on 1500 kim Diabetes-has been euglycemic for the last year. On metformin Hyperlipidemia- is on a statin and a prudent diet. Hypertension. Normotensive on losartan Hypothyroid- is euthyroid on replacement. Thyroid ros is unremarkable. Review of Systems Denies chest pains palpitations cough or shortness of breath. She does not feel there is been a change in her activity tolerance or capacity over the last 6 months. Is limited by lumbar radiculopathy. Objective BP 144/78 Pulse 86 Wt 102 kg (225 lb) SpO2 95% BMI 33.23 kg/m Physical Exam Neck shows no adenopathy. No bruit. Thyroid nontender. Heart regular without murmur. Lungs clear to auscultation. The abdomen shows no sawed or pulsatile masses. Peripheral pulses are normal. Assessment/Plan Problem List Items Addressed This Visit ICD-10-CM HTN (hypertension) I10 Hyperlipidemia E78.5 Hypothyroidism E03.9 Nicotine dependence, cigarettes, uncomplicated F17.210 Type 2 diabetes mellitus without complication, without long-term current use of insulin E11.9 Lumbar radiculopathy - Primary M54.16 She has not had her preoperative lab EKG or chest x-ray. Pending those being normal I would not think she would need further testing prior to the planned procedure. documented in this encounter [facility] Work Phone: 02-16-2025 History of Present illness Narrative Subjective Patient ID: Pallavi Lujan is a 69 y.o. female who presents for Follow-up (3 mo). HPI Since the last office visit there have been no interval operations, hospitalizations, important illnesses or injuries. Back pain- has appt woth back surg this week Will stop fosamax as dexais at goal and has had 5 yrs Diabetes October A1c was 6.7, no checks on metformin 500 daily Hypothyroid- is euthyroid on replacement. Thyroid ros is unremarkable. HTN-Takes and tolerates meds without side effects. No alcohol. + tobacco. no exercise. low salt. Reviewed recommendation for 150 minutes of exercise per week including 2 days of weight training if over age 50 Reviewed options for smoking cessation as if contemplating back surgery she will have a hard time getting approved. No history of seizure agreeable to trial Wellbutrin. Discussion on 150 for a week 300 to follow in in about 3 weeks to make an earnest attempt to reduce cigarettes Review of Systems Denies chest pains palpitations cough shortness of breath heartburn or abdominal pain. Has had activity limited by her back pain Objective BP 170/90 Pulse 89 Wt 105 kg (231 lb) SpO2 94% BMI 34.11 kg/m Physical Exam No bruit thyroid nontender. Heart regular without murmur. Lungs clear to auscultation. Abdomen soft no Maile pulsatile mass. Assessment/Plan Problem List Items Addressed This Visit ICD-10-CM Allergic rhinitis J30.9 Relevant Orders Follow Up In Primary Care HTN (hypertension) - Primary I10 Relevant Orders CBC Comprehensive Metabolic Panel Follow Up In Primary Care Hyperlipidemia E78.5 Relevant Orders CBC Comprehensive Metabolic Panel Lipid Panel Follow Up In Primary Care Hypothyroidism E03.9 Relevant Orders Thyroid Stimulating Hormone Follow Up In Primary Care Nicotine dependence, cigarettes, uncomplicated F17.210 Relevant Medications buPROPion XL (Wellbutrin XL) 150 mg 24 hr tablet buPROPion XL (Wellbutrin XL) 300 mg 24 hr tablet Other Relevant Orders Follow Up In Primary Care Type 2 diabetes mellitus without complication, without long-term current use of insulin E11.9 Relevant Orders CBC Comprehensive Metabolic Panel Lipid Panel Hemoglobin A1C Follow Up In Primary Care Lumbar radiculopathy M54.16 Relevant Medications diclofenac sodium (Voltaren XR) 100 mg 24 hr tablet documented in this encounter [facility] Work Phone: 01-13-2025 Evaluation note Diagnosis Onset Date Resolution Lumbar stenosis with neurogenic claudication acute January 132024 1:59pm Lumbar disc herniation with radiculopathy acute February 18 1:46pm Lumbar scoliosis acute January 1:46pm Lumbar stenosis with neurogenic claudication acute January 1:46pm Osteopenia acute February 18, 2025 1:46pm Spondylolisthesis, lumbar region acute February 18, 2025 1:46pm Lumbar disc herniation with radiculopathy acute May 10, 2025 9:47am Lumbar scoliosis acute April 222024 9:47am Lumbar stenosis with neurogenic claudication acute April 222024 9:47am Obesity (BMI 30.0-34.9) acute A ugust 2024 9:47am Spondylolisthesis, lumbar region acute May 10 9:47am [facility] Work Phone: 1(226) 582-284703-10-2025 Evaluation note* Diagnosis Onset Date Resolution Status Admit Date Lumbar stenosis with neurogenic claudication acute November 292024 9:59am Degenerative disc disease, lumbar noneactive November 29, 2024 9:59am [facility] Work Phone: 1(505) 524-740803-10-2025 Evaluation note* Diagnosis Onset Date Resolution Status Admit Date Lumbar stenosis with neurogenic claudication acute November 292024 9:59am Degenerative disc disease, lumbar noneactive November 29, 2024 9:59am Lumbar stenosis with neurogenic claudication acute January 132024 1:59pm [facility] Work Phone: 1(977) 800-477102-24-2025 History of Present illness Narrative* Ganga Tay MD - 11/15/2024 9:40 AM EST Subjective Patient ID: Pallavi Lujan is a 69 y.o. female who presents for Follow-up (5 wk). HPI Since the last office visit there have been no interval operations, hospitalizations, important illnesses or injuries. HTN-Takes and tolerates meds without side effects. Alcohol <1-2/day. Tobacco 3/4PPD. no exercise. low salt. Reviewed recommendation for 150 minutes of exercise per week including 2 days of weight training if over age 50 Lumbar radiculopathy - has been doing Kimberli handout exercise, states she is standing straighter. Gabapentin was increased last visit. Very slow progress. Pain management suggested neurosurgical/spine evaluation is referred to spine surgery at [facility] DM- no cks copd- one in fall exacerbations since last ov. Smoke cess advised Review of Systems Denies chest pains palpitations cough shortness of breath. Activity tolerance is limited due to L3 disc/spinal stenosis Objective BP 150/90 Pulse 88 Wt 103 kg (227 lb) SpO2 95% BMI 33.52 kg/m Physical Exam Chest clear. Heart regular. Extremities monofilament testing intact no weakness. DTRs are absent atknees and ankles Assessment/Plan Problem List Items Addressed This Visit ICD-10-CM Type 2 diabetes mellitus without complication, without long-term current use of insulin (Multi) E11.9 Relevant Orders Follow Up In Primary Care Hemoglobin A1C Lumbar radiculopathy - Primary M54.16 Relevant Orders Referral to Orthopaedic Surgery Other Visit Diagnoses Codes Pulmonary emphysema, unspecified emphysema type (Multi) J43.9 [facility] Phone: 1(587) 125-885002-11-2025 History of Present illness Narrative* Raul Fletcher, PATRICK-GRADUATING MACHINE OPERATOR - 11/02/2024 11:00 AM EST Subjective Patient ID: Renetta Olivo is a 69 y.o. female who presents for Med Management (FOLLOW UPGABAPENTIN INCREASE FROM DR. TAY, SHE CONTINUES FLEXERIL AND DICLOFENAC, PATIENT STATES SHE IS TOLERATING THE MEDICATIONS, SHE TAKES THE DICLOFENAC WHEN SHE HAS PAIN AND THEN GET RELIEF AFTER TAKING IT, RIGHT HIP PAIN WRAPPING INTO THE RIGHT GROIN AND THIGH, SOMETIMES SHE GETS PAIN TO THE KNEE,SHE HAS PAIN WITH TRANSITIONING, STANDING, STAIRS SHE TAKES ONE AT A TIME, SHE IS ABLE TO DRESS HERSELF NOW, SHE STATES WEARING JEANS INCREASES HER PAIN)., SHE DESCRIBES PAIN TO BE STABBING, SHE USESHEATING PAD, SHE WAS GIVEN HOME EXERCISES FROM DR. TAY, SHE IS ABLE TO STAND STRAIGHTER THAN BEFORE AFTER DOING ONE OF THE ACTIVITIES, PAIN SCORE 5/10, YULIA=40% Kim Gamez, ALEJANDRA 11/02/24 10:58 AM The patient is a 69-year-old female who presents today for a 1 month follow-up appointment for medication management. At her last appointment she had just come from Dr. Tay's office and he had increased her gabapentin, and we were wanting to give this a little bit of time to see if this was helpful for her pain. She has not noticed much of a difference in her pain with the increased dose, butdenies side effects to it. She currently rates her pain a 5/10. More on the right side of her lowerback radiating into her right groin and right anterior thigh region. The pain is worse with activities, transitioning from sitting to standing, standing, going up and down stairs, and wearing jeans as particularly bothersome due to the pressure it puts on her lower back. She is still very hesitant about pursuing further injections as the last one was very painful for her. She is asking about possible surgical referral, as she would rather not be on gabapentin for the rest of her life if she canavoid it, and we discussed that besides medications and injections, surgery is the other option that she could look into. Review of Systems Constitutional: Negative. HENT: Negative. Eyes: Negative. Respiratory: Negative for cough, shortness of breath and wheezing. Cardiovascular: Negative for chest pain, palpitations and leg swelling. Endocrine: Negative. Genitourinary: Negative. Musculoskeletal: Positive for back pain and myalgias. Negative for arthralgias. Skin: Negative. Allergic/Immunologic: Negative. Neurological: Negative for facial asymmetry, weakness and light-headedness. Hematological: Negative for adenopathy. Does not bruise/bleed easily. Psychiatric/Behavioral: Negative for dysphoric mood and suicidal ideas. Objective Physical Exam Constitutional: General: She is not in acute distress. Appearance: Normal appearance. HENT: Head: Normocephalic. Mouth/Throat: Mouth: Mucous membranes are moist. Eyes: Extraocular Movements: Extraocular movements intact. Cardiovascular: Rate and Rhythm: Normal rate and regular rhythm. Pulses: Normal pulses. Heart sounds: Normal heart sounds. No murmur heard. No friction rub. No gallop. Pulmonary: Effort: Pulmonary effort is normal. Breath sounds: Normal breath sounds. No wheezing, rhonchi or rales. Abdominal: General: Abdomen is flat. Palpations: Abdomen is soft. Musculoskeletal: Cervical back: Normal range of motion. Right lower leg: No edema. Left lower leg: No edema. Comments: Ambulates without assistance Slow to rise from a seated position due to the pain Strength 5/5 BLE Right sided lumbar paraspinal tenderness palpation Judy finger positive right, negative left Facet loading positive Lymphadenopathy: Cervical: No cervical adenopathy. Skin: General: Skin is warm and dry. Neurological: General: No focal deficit present. Mental Status: She is alert and oriented to person, place, and time. Mental status is at baseline. Psychiatric: Mood and Affect: Mood normal. Behavior: Behavior normal. Assessment/Plan Diagnoses and all orders for this visit: Spinal stenosis of lumbar region with neurogenic claudication Lumbar radiculopathy - cyclobenzaprine (Flexeril) 10 mg tablet; Take 1 tablet (10 mg) by mouth 3 times a day as needed for muscle spasms. The patient is a 69-year-old female with a past medical history significant for the above-mentionedproblems. We reviewed her CT scan again and discussed different options. If she would be interestedin further injections, I would either recommend a TFESI, right SIJ, or possible MBB. For medicationmanagement, she says the Flexeril is helpful and does not notice any side effects from it, and is asking if it can be taken 3 times a day as needed. Advised patient that yes that is safe to take up to 3 times a day if she does not have intolerable side effects to it, a refill for this has been sentin for her. We also discussed possible surgical referral to see what other options she may have. She would prefer someone within close proximity versus staying within . We discussed either Dr. Lemons with [facility] or Dr. Alvarenga in [place]. She would like to discuss his [address] Tay, and will call our office if she would like a referral placed to one of them. In the meantime, we discussed trying a ketamine compound cream to see if this can bring any pain relief. Patient is agreeable, Rx will be sent. Otherwise, she will follow-up on an as- needed basis and will call us if she needs us. documented in this [facility] Work Phone: 1(460) 238-891601-20-2025 History of Present illness Narrative* Ganga Tay MD - 10/11/2024 10:20 AM EST Subjective Patient ID: Pallavi Lujan is a 69 y.o. female who presents for Follow-up (6 wk rev labs). HPI Had very little benefit to shot, right side worse, left side a little better. Didn't tolerate aquatic therapy Will inc kim from 900 to [id number] q2 wks Provided handout with Radhika back exercises. Has pain management appointment immediately following this. CAT scan again reviewed with no obvious surgical illness. Review of Systems As above Objective BP 140/80 Pulse 87 SpO2 96% Physical Exam Vital signs noted Assessment/Plan Problem List Items Addressed This Visit ICD-10-CM HTN (hypertension) I10 Lumbar radiculopathy - Primary M54.16 Relevant Medications gabapentin (Neurontin) 300 mg capsule cyclobenzaprine (Flexeril) 10 mg tablet diclofenac sodium (Voltaren XR) 100 mg 24 hr tablet Will follow-up in 4 to 6-week on KIM [facility] Work Phone: 1(720) 109-780201-03-2025 Miscellaneous Notes* Perioperative Nursing Note - Ann Anderson RN - 09/24/2024 2:36 PM EST Discharge instructions reviewed by Irma Dunne RN no questions and verbalized understanding. discharged amb steady gait, to exit to be driven home by family marek well [facility] Work Phone: 1(341) 416-797301-03-2025 Note* Perioperative Nursing Note - Ann Anderson RN - 09/24/2024 2:36 PM EST Discharge instructions reviewed by Irma Dunne RN no questions and verbalized understanding. discharged amb steady gait, to exit to be driven home by family marek well [facility]01-03-2025 NoteTable formatting from the original result was not included. Procedure Epidural Steroid Injection Indication Lumbar radiculopathy Medications iohexol (OMNIPaque) 300 mg iodine/mL solution 3 mL 1 mL lidocaine PF (Xylocaine) 20 mg/mL (2 %) injection 120 mg 2 mL sodium chloride (PF) 0.9% solution 4 mL methylPREDNISolone acetate (DEPO-Medrol) injection 40 mg (Totals for administrations occurring from 1401 to 1409 on 09/24/24) Preprocedure A history and physical has been performed, and patient medication allergies have been reviewed. The patient's tolerance of previous anesthesia has been reviewed. The risks and benefits of the procedure and the sedation options and risks were discussed with the patient. All questions were answered and informed consent obtained. Details of the Procedure Diagnosis: m54.16 lumbar radiculopathy Procedure: L3/4 interlaminar epidural steroid injection under fluoroscopic guidance Anesthesia: Local Complications: None After informed consent was obtained, the patient was brought to the procedure suite and placed in the prone position. Pulse oximetry and blood pressure were monitored throughout. The low back area was prepped and draped in the usual sterile fashion. Using fluoroscopic guidance, the skin and subcutaneous tissue overlying the needle trajectory were anesthetized with 2.0% lidocaine. An 18-gauge Tuohy needle was inserted and directed by fluoroscopy. Entry into the epidural space was confirmed using the loss of resistance technique with a loss of resistance syringe and 2 cc of air. Injection of contrast revealed appropriate spread without vascular uptake. Needle tip position confirmed in at least two views. 4 mL of normal saline plus 40 mg of Methylprednisone was then injected. The needle was removed and the patient was then transferred to the recovery room in stable condition. The patient tolerated the procedure well. There were no apparent complications. FOLLOW UP: The patient will update us on their response to this procedure, and agrees to continue currently prescribed/recommended therapies Procedure Provider Thomas Alexandra DO Procedure Location [facility] [place] [address] [place] [id number] Referring Provider Raul Fletcher, RADIAL DRILL OPERATOR-GRADUATING MACHINE OPERATOR [address] [place] [address] [facility] Work Phone: [phone] History and physical note* Thomas Alexandra DO - 09/24/2024 2:15 PM EST History Of Present Illness Renetta Olivo is a 68 y.o. female presenting with pain. Past Medical History Past Medical History: Diagnosis Date Diabetes mellitus (Multi) Hypertension Surgical History Past Surgical History: Procedure Laterality Date OTHER SURGICAL HISTORY 12/13/2019 section OTHER SURGICAL HISTORY 12/13/2019 Tonsillectomy OTHER SURGICAL HISTORY 12/13/2019 Thyroid surgery Social History She reports that she has been smoking cigarettes. She has never used smokeless tobacco. She reportscurrent alcohol use. Drug use questions deferred to the physician. Family History Family History Problem Relation Name Age of Onset Hypertension Mother Other (PANCREATIC ABNORMALTY) Mother Hypertension Father Allergies Patient has no known allergies. Review of Systems All other systems reviewed and are negative. Physical Exam Last Recorded Vitals There were no vitals taken for this visit. Relevant Results Constitutional: No acute distress, well appearing and well nourished. Patient appears stated age. Eyes: nonicteric sclerae ENT: Hearing is grossly intact. Neck: trachea midline Head and Face: grossly normal. Respiratory: nonlabored breathing Cardiovascular: rate per vitals. Neuro: alert, moving extremities. Assessment/Plan Assessment & Plan Lumbar radiculopathy ximena Watt spent minutes in the professional and overall care of this patient. Thomas Alexandra DO [facility] Work Phone: [phone] 747-686301-03-2025 History and physical note* Thomas Alexandra DO - 09/24/2024 2:15 PM EST History Of Present Illness Renetta Olivo is a 68 y.o. female presenting with pain. Past Medical History Past Medical History: Diagnosis Date Diabetes mellitus (Multi) Hypertension Surgical History Past Surgical History: Procedure Laterality Date OTHER SURGICAL HISTORY 12/13/2019 section OTHER SURGICAL HISTORY 12/13/2019 Tonsillectomy OTHER SURGICAL HISTORY 12/13/2019 Thyroid surgery Social History She reports that she has been smoking cigarettes. She has never used smokeless tobacco. She reportscurrent alcohol use. Drug use questions deferred to the physician. Family History Family History Problem Relation Name Age of Onset Hypertension Mother Other (PANCREATIC ABNORMALTY) Mother Hypertension Father Allergies Patient has no known allergies. Review of Systems All other systems reviewed and are negative. Physical Exam Last Recorded Vitals There were no vitals taken for this visit. Relevant Results Constitutional: No acute distress, well appearing and well nourished. Patient appears stated age. Eyes: nonicteric sclerae ENT: Hearing is grossly intact. Neck: trachea midline Head and Face: grossly normal. Respiratory: nonlabored breathing Cardiovascular: rate per vitals. Neuro: alert, moving extremities. Assessment/Plan Assessment & Plan Lumbar radiculopathy ximena Watt spent minutes in the professional and overall care of this patient. Thomas Alexandra DO documented in this [facility] Work Phone: [phone]) 852-395212-09-2024 Evaluation + Plan note* Assessment & Plan Note - Ganga Tay MD - 08/30/2024 10:00 AM ESTAssociated Problem(s): Hyperlipidemia Orders: atorvastatin (Lipitor) 40 mg tablet; Take 1 tablet (40 mg) by mouth once daily. [facility] Work Phone: [phone]) 960-418312-09-2024 Evaluation + Plan note* Assessment & Plan Note - Ganga Tay MD - 08/30/2024 10:00 AM ESTAssociated Problem(s): Lumbar radiculopathy Orders: oxyCODONE-acetaminophen (Percocet) 5-325 mg tablet; Take 1 tablet by mouth every 6 hours if needed for severe pain (7 - 10) for up to 7 days. Follow Up In Primary Care; Future [facility] Work Phone: [phone] Evaluation + Plan note* Assessment & Plan Note - Ganga Tay MD - 08/30/2024 10:00 AM ESTAssociated Problem(s): HTN (hypertension) Orders: losartan (Cozaar) 100 mg tablet; Take 1 tablet (100 mg) by mouth once daily. Basic Metabolic Panel; Future Follow Up In Primary Care; Future [facility] Work Phone: [phone] 155-504412-09-2024 History of Present illness Narrative* Ganga Tay MD - 08/30/2024 10:00 AM EST Subjective Reason for Visit: Renetta Lujan is an 68 y.o. female here for a Medicare Wellness visit. Past Medical, Surgical, and Family History reviewed and updated in chart. Reviewed all medications by prescribing practitioner or clinical pharmacist (such as prescriptions,OTCs, herbal therapies and supplements) and documented in the medical record. HPI Starting water therapy Pain mgmt started kim, and not yet scheduled for epidural Has been getting worse every day. Diff getting into bed, worse getting out. Constant stabbing pain in right low back rad into thigh Trial percocet Smpoke cess advised HTN-Takes and tolerates meds without side effects. 2/d alcohol. + tobacco. no exercise. low salt. Reviewed recommendation for 150 minutes of exercise per week including 2 days of weight training if over age 50 Resume losartan alone at 100 with bmp in a month Patient Care Team: Ganga Tay MD as PCP - General (Family Medicine) Ganga Tay MD as PCP - [employer] PCP Review of Systems As per HPI Objective Vitals: BP 170/90 Pulse 81 SpO2 94% Physical Exam Heart regular without murmur lungs clear to auscultation no edema in extremities Assessment & Plan Routine general medical examination at health care facility Orders: 1 Year Follow Up In Primary Care - Wellness Exam; Future Lumbar radiculopathy Orders: oxyCODONE-acetaminophen (Percocet) 5-325 mg tablet; Take 1 tablet by mouth every 6 hours if needed for severe pain (7 - 10) for up to 7 days. Follow Up In Primary Care; Future Mixed hyperlipidemia Orders: atorvastatin (Lipitor) 40 mg tablet; Take 1 tablet (40 mg) by mouth once daily. Primary hypertension Orders: losartan (Cozaar) 100 mg tablet; Take 1 tablet (100 mg) by mouth once daily. Basic Metabolic Panel; Future Follow Up In Primary Care; Future documented in this [facility] Work Phone: [phone] 309-362512-09-2024 Miscellaneous Notes* Assessment & Plan Note - Ganga Tay MD - 08/30/2024 10:00 AM ESTAssociated Problem(s): Hyperlipidemia Orders: atorvastatin (Lipitor) 40 mg tablet; Take 1 tablet (40 mg) by mouth once daily. * Assessment & Plan Note - Ganga Tay MD - 08/30/2024 10:00 AM EST Associated Problem(s): Lumbar radiculopathy Orders: oxyCODONE-acetaminophen (Percocet) 5-325 mg tablet; Take 1 tablet by mouth every 6 hours if needed for severe pain (7 - 10) for up to 7 days. Follow Up In Primary Care; Future * Assessment & Plan Note - Ganga Tay MD - 08/30/2024 10:00 AM EST Associated Problem(s): HTN (hypertension) Orders: losartan (Cozaar) 100 mg tablet; Take 1 tablet (100 mg) by mouth once daily. Basic Metabolic Panel; Future Follow Up In Primary Care; Future documented in this [facility] Work Phone: [phone] 609-449212-03-2024 History of Present illness Narrative* Raul Calixto Chance, PATRICK-GRADUATING MACHINE OPERATOR - 08/24/2024 1:00 PM EST Subjective Patient ID: Renetta Olivo is a 68 y.o. female who presents for Pain (NPV for xiang low back pain with radiation to xiang hips (R>L) around to xiang groin areas. Pain is described as a constant stabbing pain. Patient states she will occasionally experience a tingling/numbing sensation down the front of both legs. Pain score today is 10/10. Pain started about 2 months ago. No injury noted. Getting into and out of a chair and doing daily activities causes a lot of pain. Heat and pain medications help relieve some pain. ). Patient had a lumbar CT done through the ER at 08-03-24. Patient states she has been somewhat depressed due to the pain. Patient is tearful from the pain. YULIA = 56/ 100. SOAPP = 5. Depression and falls screen negative. Smoking screen positive. Education provided. MMA signed. Alexia Resendiz RN 08/24/24 1:02 PM The patient is a 68-year-old female who presents today as a new patient referred to us by her PCP for severe low back pain. The pain radiates from her lower back across into bilateral hip/groin area.She will have intermittent numbness knee going down in her right perez, says the most bothersome is the pain in her lower back. She currently rates the pain a 10/10. She says it began about 2 months ag o, denies any injury or inciting event. Sitting transitions and ADLs and basic tasks can increase the pain make it hard to function at home. She has tried Aleve and says it barely helps take the edgeoff of things, and has had hydrocodone from her PCP but also helps take the edge off of things. Shehas been going to physical therapy, but has not noticed any change in her pain. The pain is causingweakness into bilateral legs. Wondering what can be done to help with the pain. Review of Systems Constitutional: Negative. HENT: Negative. Eyes: Negative. Respiratory: Negative for cough, shortness of breath and wheezing. Cardiovascular: Negative for chest pain, palpitations and leg swelling. Endocrine: Negative. Genitourinary: Negative. Musculoskeletal: Positive for back pain and myalgias. Negative for arthralgias. Skin: Negative. Allergic/Immunologic: Negative. Neurological: Negative for facial asymmetry, weakness and light-headedness. Hematological: Negative for adenopathy. Does not bruise/bleed easily. Psychiatric/Behavioral: Negative for dysphoric mood and suicidal ideas. Objective Physical Exam Constitutional: General: She is not in acute distress. Appearance: Normal appearance. HENT: Head: Normocephalic. Mouth/Throat: Mouth: Mucous membranes are moist. Eyes: Extraocular Movements: Extraocular movements intact. Cardiovascular: Rate and Rhythm: Normal rate and regular rhythm. Pulses: Normal pulses. Heart sounds: Normal heart sounds. No murmur heard. No friction rub. No gallop. Pulmonary: Effort: Pulmonary effort is normal. Breath sounds: Normal breath sounds. No wheezing, rhonchi or rales. Abdominal: General: Abdomen is flat. Palpations: Abdomen is soft. Musculoskeletal: Cervical back: Normal range of motion. Right lower leg: No edema. Left lower leg: No edema. Comments: Ambulates without assistance with very slow antalgic gait Strength 4/5 BLE Bilateral lumbar paraspinal tenderness to palpation Facet loading positive Judy finger mildly positive SLR positive bilaterally Lymphadenopathy: Cervical: No cervical adenopathy. Skin: General: Skin is warm and dry. Neurological: General: No focal deficit present. Mental Status: She is alert and oriented to person, place, and time. Mental status is at baseline. Psychiatric: Mood and Affect: Mood normal. Behavior: Behavior normal. Assessment/Plan Diagnoses and all orders for this visit: Lumbar radiculopathy - gabapentin (Neurontin) 300 mg capsule; Take 1 capsule (300 mg) by mouth 3 times a day. - FL pain management; Future - Epidural Steroid Injection; Future Acute midline low back pain without sciatica - Referral to Pain Medicine Other orders - iohexol (OMNIPaque) 300 mg iodine/mL solution 3 mL - lidocaine PF (Xylocaine) 20 mg/mL (2 %) injection 120 mg - sodium chloride (PF) 0.9% solution 4 mL - methylPREDNISolone acetate (DEPO-Medrol) injection 40 mg - NPO Diet Except: Sips with meds; Effective now; Standing - Height and weight; Standing - POCT Glucose; Standing - Type And Screen; Standing - Inpatient consult to Respiratory Care; Standing - Adult diet Regular; Standing - Vital Signs; Standing - Notify provider (specify parameters); Standing - Continue IV fluids ordered pre-procedure; Standing - Prior to Discharge O2 Weaning; Standing - Pulse oximetry, continuous; Standing - Discharge patient; Standing The patient is a 68-year-old female with a past medical history significant for the above-mentionedproblems. She currently rates her pain a 10/10 across her lower back and into bilateral hip/groin area with numbness and tingling and weakness into her legs. We discussed trialing gabapentin 300 mg 3times a day on an uptitrating schedule. Side effects discussed, PDMP reviewed, patient agreeable, Rx sent. Advised the patient that after a couple of weeks if she does not notice enough of a difference in the pain, to call us and we can always increase the dose. Otherwise, we reviewed her CT scan and discussed options based on findings as well as her pain pattern, her physical exam. I recommend pu rsuing an L3-4 epidural steroid injection under fluoroscopy. The procedure was discussed, risks andbenefits were discussed, patient is agreeable. Med holds include aspirin for 6 days and naproxen for 4 days. She will follow-up after the injection for reevaluation, call the clinic sooner if needed. documented in this [facility] Work Phone: [phone] History of Present illness Narrative* Ganga Tay MD - 08/16/2024 2:20 PM EST Subjective Patient ID: Pallavi Lujan is a 68 y.o. female who presents for Follow-up (1 wk). HPI In lst week no real improvement. Granton avg 4-6/d. Aleve 2 bid PHTH and Pinmgmt next weeek. Heating pad No other modality. Right side into groin is worse, cruz L23, L34 sx Not weak but shaky from pain No steps in home, but ndoesnt alternate feet even before. No sertraline use, Na is low will stop losartan hydrochlorothiazide and recheck BMP next week Review of Systems As per HPI Objective BP 150/80 Pulse 105 SpO2 92% Physical Exam Nontender sciatic notch bilaterally. Nontender over trochanters able to stand on toes and heels. Assessment/Plan Problem List Items Addressed This Visit ICD-10-CM HTN (hypertension) I10 Relevant Orders Basic Metabolic Panel Other Visit Diagnoses Codes Acute midline low back pain without sciatica - Primary M54.50 Relevant Medications HYDROcodone-acetaminophen (Granton) 5-325 mg tablet Hyponatremia E87.1 Lumbar radiculopathy M54.16 Initially felt to be musculoskeletal strain of the low back but over the last week has developed more pain in the low back rating into the groin upper thigh consistent with L2-3 or 3 4. Reviewed CAT scan does show some findings at that level. Has physical therapy and pain management next week. Until then continue analgesics as above. Valuation of hyponatremia as noted above documented in this [facility] Work Phone: [phone] History of Present illness Narrative* Ganga Tay MD - 08/09/2024 3:40 PM EST Subjective Patient ID: Pallavi Lujan is a 68 y.o. female who presents for Follow-up (ER 08/03/24). HPI Hip botheriing for years. Camped twice in Jun, back pain got bad and came home. Also got bronchitis. Went camping againa dn had backpain and pain has persisted Low back radiates around front, can have r leg numbness below knee. No bowel control issues. USI as diff getting to br sometimes. Sharpsevere NKI Review of Systems Objective BP 160/88 Pulse 93 Ht 1.753 m (5' 9) SpO2 98% BMI 32.78 kg/m Physical Exam DTRs +2 at ankle and knee. Monofilament testing intact. EHL strength is good. CT reviewed with any number of structures generating pain. Assessment/Plan Problem List Items Addressed This Visit None Visit Diagnoses Codes Acute midline low back pain without sciatica - Primary M54.50 Relevant Medications HYDROcodone-acetaminophen (Granton) 5-325 mg tablet Other Relevant Orders Referral to Physical Therapy Referral to Pain Medicine Follow Up In Primary Care Disability Placclive Disability Placard Lumbar radiculopathy M54.16 Hyponatremia E87.1 Will involve physical therapy and pain management. I did not order an MRI as she had CT in the emergency room. There was no obvious surgical illness seen in the emergency room though any number of structures could be generating pain Reviewed the use of Aleve 220 at 2 tabs twice a day, Granton 1 or 2 as needed up to 4 times a day, PTpain management [facility] Work Phone: [phone]) 579-849211-12-2024 Hospital Discharge instructions* Discharge Instructions* Aly Hess DO - 08/03/2024 1:30 PM EST Recommend that you have a repeat basic metabolic panel performed in at least 2 weeks to check your sodium level. Make sure you increased amount of sodium in your diet. * Attachments The following attachments cannot be sent through Care Everywhere. * Low Back Pain ED (Citizen Of [place]) * Hyponatremia ([place]izen [place]) [facility] Work Phone: [phone]) [phone] History of Present illness Narrative* Doyle Garcia APRN-MODESTO - 07/05/2024 2:10 PM EDT 68 y.o. female presents for evaluation of cough, nasal congestion, chest congestion, sore throat for the past week. Patient is a daily smoker. Denies fever, chest pains, shortness of breath, nausea, vomiting, diarrhea, body aches, fatigue or any other associated symptom or complaint. No OTC meds for symptom management. No other complaints. Vitals: 07/05/24 1413 BP: (!) 155/92 Pulse: 94 Resp: 18 Temp: 36.3 C (97.4 F) SpO2: 94% No Known Allergies Medication Documentation Review Audit Reviewed by Jacqueline Graham MA (Software Development Specialist) on 07/05/24 at 1412 Medication Order Taking? Sig Documenting Provider Last Dose Status alendronate (Fosamax) 70 mg tablet [id number] Yes TAKE 1 TABLET BY MOUTH EVERY WEEK. take with plainwater. no food other meds or lying down for at least 30 minutes afterwards Ganga Tay MD Taking Active aspirin 81 mg EC tablet [id number] Yes Take 1 tablet (81 mg) by mouth once daily. Historical Provider, Taking Active atorvastatin (Lipitor) 40 mg tablet [id number] Yes Take 1 tablet (40 mg) by mouth once daily. Ganga Tay MD Taking Active fluticasone (Flonase) 50 mcg/actuation nasal spray [id number] Yes Administer 2 sprays into each nostril once daily. Historical Provider, Taking Active levothyroxine (Synthroid, Levoxyl) 175 mcg tablet [id number] Yes Take 1 tablet (175 mcg) by mouth once daily. Ganga Tay MD Taking Active losartan-hydrochlorothiazide (Hyzaar) 100-12.5 mg tablet [id number] Yes Take 1 tablet by mouth once daily. Ganga Tay MD Taking Active metFORMIN XR (Glucophage-XR) 500 mg 24 hr tablet [id number] Yes Take 1 tablet (500 mg) by mouth oncedaily with breakfast. Do not crush, chew, or split. Ganga Tay MD Taking Active montelukast (Singulair) 10 mg tablet [id number] Yes Take 1 tablet (10 mg) by mouth once daily. Historical Provider, Taking Active sertraline (Zoloft) 50 mg tablet [id number] Yes Take 1 tablet (50 mg) by mouth once daily. Ganga Beverly MD Taking Active No past medical history on file. Past Surgical History: Procedure Laterality Date OTHER SURGICAL HISTORY 12/13/2019 section OTHER SURGICAL HISTORY 12/13/2019 Tonsillectomy OTHER SURGICAL HISTORY 12/13/2019 Thyroid surgery ROS See HPI Physical Exam Vitals and nursing note reviewed. Constitutional: Appearance: She is ill-appearing (Mildly). HENT: Head: Normocephalic and atraumatic. Right Ear: Tympanic membrane and ear canal normal. Left Ear: Tympanic membrane and ear canal normal. Nose: Congestion present. Mouth/Throat: Mouth: Mucous membranes are moist. Pharynx: Oropharynx is clear. No oropharyngeal exudate or posterior oropharyngeal erythema. Eyes: Extraocular Movements: Extraocular movements intact. Conjunctiva/sclera: Conjunctivae normal. Pupils: Pupils are equal, round, and reactive to light. Cardiovascular: Rate and Rhythm: Normal rate. Pulmonary: Effort: Pulmonary effort is normal. Breath sounds: Decreased air movement present. Wheezing and rhonchi present. Lymphadenopathy: Cervical: Cervical adenopathy present. Skin: General: Skin is warm and dry. Neurological: General: No focal deficit present. Mental Status: She is alert and oriented to person, place, and time. Psychiatric: Mood and Affect: Mood normal. Behavior: Behavior normal. Assessment/Plan/MDM Renetta Olivo was seen today for uri. Diagnoses and all orders for this visit: Acute bronchitis, unspecified organism (Primary) - azithromycin (Zithromax Z-Priyank) 250 mg tablet; Take 2 tablets (500 mg) on Day 1, followed by 1 tablet (250 mg) once daily on Days 2 through 5. - predniSONE (Deltasone) 10 mg tablet; Take 6 tablets (60 mg) by mouth once daily for 1 day, THEN 5tablets (50 mg) once daily for 1 day, THEN 4 tablets (40 mg) once daily for 1 day, THEN 3 tablets (30 mg) once daily for 1 day, THEN 2 tablets (20 mg) once daily for 1 day, THEN 1 tablet (10 mg) oncedaily for 1 day. - albuterol 90 mcg/actuation inhaler; Inhale 2 puffs every 6 hours if needed for wheezing. - ipratropium-albuteroL (Duo-Neb) 0.5-2.5 mg/3 mL nebulizer solution 3 mL DuoNeb x 1 given in office, decreased wheezing and rhonchi and increased air movement post treatment, patient tolerated well. Encouraged pt to use otc cold remedies PRN, push PO fluids and rest. Patient's clinical presentation is otherwise unremarkable at this time. Patient is discharged with instructions to follow-up with primary care or seek emergency medical attention for worsening symptoms orany new concerns. I did personally review Renetta's past medical history, surgical history, social history, as well asfamily history (when relevant). In this case, I also oversaw the her drug management by reviewing her medication list, allergy list, as well as the medications that I prescribed during the UC course and/or recommended as an out-patient (including possible OTC medications such as acetaminophen, NSAIDs , etc). After reviewing the items above, I did look at previous medical documentation, such as recent hospitalizations, office visits, and/or recent consultations with PCP/specialist. SDOH: Another factor that I considered in Renetta's care was her Social Determinants of Health (SDOH). During this UC encounter, she did not have social determinants of health. Those SDOH influencing Renetta's care are: none Doyle Garcia CNP [facility] [phone] documented in this [facility] Work Phone: 1(996) [phone] History of Present illness Narrative* Ganga Tay MD - 08/26/2023 3:20 PM EST Subjective Reason for Visit: Renetta Lujan is an 67 y.o. female here for a Medicare Wellness visit. Past Medical, Surgical, and Family History reviewed and updated in chart. Reviewed all medications by prescribing practitioner or clinical pharmacist (such as prescriptions,OTCs, herbal therapies and supplements) and documented in the medical record. HPI Since the last office visit there have been no interval operations, hospitalizations, important illnesses or injuries. Tob cessation advised , declines quit diet. Has annual CT scan for early detection of lung cancer. Last years had a few millimeters granulomas at 3 mm and some apical emphysematous changes. Allergy- not using flonase or singulair very often HTN-Takes and tolerates meds without side effects. <2 alcohol. <1pp tobacco. no exercise. lowsalt. Reviewed recommendation for 150 minutes of exercise per week including 2 days of weight training if over age 50 Hypothyroid- is euthyroid on replacement. Thyroid ros is unremarkable. Hyperlipidemia-not on statin and prudent diet Bilateral carpal tunnel. Indicated flick waking and dropping. Reviewed use of EMG. Will check B12 in addition to TSH glucose. To wear splint and take pyridoxine 100 twice daily x 30 days copd- no exacerbations since last ov. Patient Care Team: Ganga Tay MD as PCP - General Ganga Tay MD as PCP - [employer] PCP Review of Systems General-no fatigue weight to within 10 pounds ENT no problems with vision swallowing Cardiac no chest pains palpitations change in exercise tolerance or capacity Pulmonary no cough shortness of breath GI no heartburn or abdominal pain Musculoskeletal no joint pains Objective Vitals: BP 144/84 Pulse 89 Ht 1.753 m (5' 9) Wt 101 kg (223 lb 9.6 oz) SpO2 93% BMI 33.02 kg/m Physical Exam General: Alert, No acute distress. Appears stated age Eye: Pupils are equal, round and reactive to light, Extraocular movements are intact, Normal conjunctiva. Neck: Supple, Non-tender, No carotid bruit, No jugular venous distention, No lymphadenopathy, No thyromegaly. Respiratory: Lungs are clear to auscultation, Respirations are non-labored, Breath sounds are equal. Cardiovascular: Normal rate, Regular rhythm, No murmur. Gastrointestinal: Soft, Non-tender, No organomegaly. No solid or pulsatile mass Integumentary: Warm, Dry. No concerning lesions on exposed areas Neurologic: Alert, Oriented. Gross and fine motor intact, CN 2-12 intact Psychiatric: Cooperative, Appropriate mood & affect. Assessment/Plan Problem List Items Addressed This Visit Allergic rhinitis HTN (hypertension) Relevant Orders CBC Comprehensive Metabolic Panel Lipid Panel Hyperlipidemia Relevant Orders CBC Comprehensive Metabolic Panel Lipid Panel Hypothyroidism Relevant Orders Thyroid Stimulating Hormone Nicotine dependence, cigarettes, uncomplicated Relevant Orders CT lung screening follow up CT chest wo IV contrast Bilateral carpal tunnel syndrome Other emphysema (CMS/HCC) Other Visit Diagnoses Routine general medical examination at health care facility - Primary Breast cancer screening by mammogram Relevant Orders BI mammo bilateral screening tomosynthesis Vitamin B 12 deficiency Relevant Orders Vitamin B12 documented in this [facility] Work Phone: [phone] 151-959605-30-2023 History of Present illness Narrative* Ganga Tay MD - 02/18/2023 1:20 PM EDT Subjective Patient ID: Renetta Lujan is a 67 y.o. female who presents for Follow-up (3 mo). HPI reviewed she was intolerant to trazodone we started sertraline 25 she notes she is sleeping better with decreased sleep latency but a couple continuous improvement coach awakenings which she is usually able to fall back asleep. HCC and best practices reviewed and closed for smoking and falls Will increase 50 Review of Systems No side effects associated with sertraline Objective There were no vitals taken for this visit. Physical Exam Assessment/Plan Problem List Items Addressed This Visit Nervous Insomnia - Primary Relevant Medications sertraline (Zoloft) 50 mg tablet Other Relevant Orders CBC Comprehensive Metabolic Panel Follow Up In Primary Care Endocrine/Metabolic Hypothyroidism Relevant Medications levothyroxine (Synthroid, Levoxyl) 175 mcg tablet Other Relevant Orders CBC Comprehensive Metabolic Panel Thyroid Stimulating Hormone Follow Up In Primary Care Other Hyperlipidemia Relevant Orders CBC Comprehensive Metabolic Panel Lipid Panel Follow Up In [facility]: [phone] 255-884002-14-2023 History of Present illness Narrative* didn t tolerate trazodone with no help with sleep. rash and tremor and anxious * SL- 45 min, cant shut it down, demar several and rises at7, hs <11. rested maddie sometimes. no naps, drives ok. 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 No shortness of breath daughter checked O2 sats and was told okay. Request monoclonal antibodies UA reviewed forms filled permission granted.[employer] [facility] Work Phone: evaluation note* Diagnosis Insomnia, unspecified type- Primary Hypothyroidism, unspecified type Mixed hyperlipidemia documented in this encounter [facility] Work Phone: Evaluation note* Diagnosis Routine general medical examination at health care facility- Primary Routine general medical examination at a health care facility Nicotine dependence, cigarettes, uncomplicated Acquired hypothyroidism Unspecified hypothyroidism Allergic rhinitis, unspecified seasonality, unspecified trigger Mixed hyperlipidemia Hypertension, unspecified type Breast cancer screening by mammogram Vitamin B 12 deficiency Other B-complex deficiencies Bilateral carpal tunnel syndrome Carpal tunnel syndrome Other emphysema (CMS/HCC) Other emphysema documented in this encounter [facility] Work Phone: [phone] note* Diagnosis Nicotine dependence, cigarettes, uncomplicated documented in this encounter [facility] Work Phone: [phone] note* Diagnosis Acute bronchitis, unspecified organism- Primary documented in this encounter [facility] Work Phone: [phone] note* Diagnosis Acute midline low back pain without sciatica- Primary Hyponatremia Hyposmolality and/or hyponatremia documented in this encounter [facility] Work Phone: [phone] note* Diagnosis Acute midline low back pain without sciatica- Primary Lumbar radiculopathy Thoracic or lumbosacral neuritis or radiculitis, unspecified Hyponatremia Hyposmolality and/or hyponatremia documented in this encounter [facility] Work Phone: [phone] note* Diagnosis Acute midline low back pain without sciatica- Primary Primary hypertension Unspecified essential hypertension Hyponatremia Hyposmolality and/or hyponatremia Lumbar radiculopathy Thoracic or lumbosacral neuritis or radiculitis, unspecified documented in this encounter [facility] Work Phone: [phone] note* Diagnosis Lumbar radiculopathy- Primary Thoracic or lumbosacral neuritis or radiculitis, unspecified Acute midline low back pain without sciatica documented in this encounter [facility] Work Phone: [phone] note* Diagnosis Routine general medical examination at health care facility- Primary Routine general medical examination at a health care facility Lumbar radiculopathy Thoracic or lumbosacral neuritis or radiculitis, unspecified Mixed hyperlipidemia Primary hypertension Unspecified essential hypertension Acute midline low back pain without sciatica documented in this encounter [facility] Work Phone: [phone] note* Diagnosis Routine general medical examination at health care facility- Primary Routine general medical examination at a health care facility Lumbar radiculopathy Thoracic or lumbosacral neuritis or radiculitis, unspecified Mixed hyperlipidemia Primary hypertension Unspecified essential hypertension Lumbar radiculopathy Thoracic or lumbosacral neuritis or radiculitis, unspecified documented in this encounter [facility] Work Phone: Evaluation note* Diagnosis Routine general medical examination at health care facility- Primary Routine general medical examination at a health care facility Lumbar radiculopathy Thoracic or lumbosacral neuritis or radiculitis, unspecified Mixed hyperlipidemia Primary hypertension Unspecified essential hypertension Lumbar radiculopathy- Primary Thoracic or lumbosacral neuritis or radiculitis, unspecified Primary hypertension Unspecified essential hypertension documented in this encounter [facility] Work Phone: Evaluation note* Diagnosis Routine general medical examination at health care facility- Primary Routine general medical examination at a health care facility Lumbar radiculopathy Thoracic or lumbosacral neuritis or radiculitis, unspecified Mixed hyperlipidemia Primary hypertension Unspecified essential hypertension Spinal stenosis of lumbar region with neurogenic claudication- Primary Lumbar radiculopathy Thoracic or lumbosacral neuritis or radiculitis, unspecified documented in this encounter [facility] Work Phone: Evaluation note* Diagnosis Routine general medical examination at health care facility- Primary Routine general medical examination at a health care facility Lumbar radiculopathy Thoracic or lumbosacral neuritis or radiculitis, unspecified Mixed hyperlipidemia Primary hypertension Unspecified essential hypertension Lumbar radiculopathy- Primary Thoracic or lumbosacral neuritis or radiculitis, unspecified Pulmonary emphysema, unspecified emphysema type (Multi) Type 2 diabetes mellitus without complication, without long-term current use of insulin (Multi) documented in this encounter [facility] Work Phone: Evaluation note* Diagnosis Routine general medical examination at health care facility- Primary Routine general medical examination at a health care facility Lumbar radiculopathy Thoracic or lumbosacral neuritis or radiculitis, unspecified Mixed hyperlipidemia Primary hypertension Unspecified essential hypertension Primary hypertension- Primary Unspecified essential hypertension Type 2 diabetes mellitus without complication, without long-term current use of insulin Mixed hyperlipidemia Allergic rhinitis, unspecified seasonality, unspecified trigger Acquired hypothyroidism Unspecified hypothyroidism Nicotine dependence, cigarettes, uncomplicated Lumbar radiculopathy Thoracic or lumbosacral neuritis or radiculitis, unspecified documented in this encounter [facility] Work Phone: Evaluation note* Diagnosis Routine general medical examination at health care facility- Primary Routine general medical examination at a health care facility Lumbar radiculopathy Thoracic or lumbosacral neuritis or radiculitis, unspecified Mixed hyperlipidemia Primary hypertension Unspecified essential hypertension Lumbar radiculopathy- Primary Thoracic or lumbosacral neuritis or radiculitis, unspecified Nicotine dependence, cigarettes, uncomplicated Primary hypertension Unspecified essential hypertension Mixed hyperlipidemia Type 2 diabetes mellitus without complication, without long-term current use of insulin Acquired hypothyroidism Unspecified hypothyroidism documented in this encounter [facility] Work Phone: History of Present illness Narrative* Since the last office visit there have been no interval operations, hospitalizations, important illnesses or injuries. * HTN-Takes and tolerates meds without side effects. No alcohol. ecig tobacco. no exercise. low salt.Reviewed recommendation for 150 minutes of exercise per week including 2 days of weight training ifover age 50 * Hyperlipidemia- is not on statin and a prudent diet. * Hypothyroid- is euthyroid on replacement. Thyroid ros is unremarkable. * Currently on Singulair and nasal steroids for allergic rhinitis * Reviewed Fosamax use and will monitor a 2-year interval. FRAX is 3.5/ [facility] Work Phone: History of Present illness Narrative* The patient is being seen for the subsequent annual wellness visit. * Past Medical, Surgical and Family History: reviewed and updated in chart. * Interval History: Patient has not been hospitalized previously. * Medications and Supplements: Review of all medications by a prescribing practitioner or clinical pharmacist (such as prescriptions, OTCs, herbal therapies and supplements) documented in the medical record. * No, the patient is not using opioids. * Health Risk Assessment:. Paper HRA completed by patient and scanned into chart. * Patient Self Assessment of Health Status: excellent. * Tobacco use: User * Alcohol use: User, As noted in social history <2. * Illicit drug use: Non-User * Current diet: well balanced diet. * Exercise Frequency: the patient does not exercise. * Depression/Suicide Screening: . * During the past 2 weeks, the patient felt down, depressed or hopeless. * During the past 2 weeks, the patient felt little interest or pleasure in doing things. * Will begin trazodone for insomnia * Hearing Impairment: none. * Cognitive Impairment: No cognitive impairment observed. * Bathing: performs independently. * Dressing: performs independently. * Walking: performs independently. * Toileting: performs independently. * Feeding: performs independently. * Personal Hygiene: performs independently. * Bowels: continent. * Bladder: continent. * Managing Finances: performs independently. * Shopping: performs independently. * Managing Medications: performs independently. * Housework / Basic Home Maintenance: performs independently. * Handling Transportation: performs independently. * Preparing Meals: performs independently. * Using the Telephone/ Communication Devices: performs independently. * Falls Risk Screening:. RENETTA has not fallen in the last 6 months. * Home safety risk factors: no grab bars in the bathroom. * Advance directives:. Advance Care Planning discussed and documented in the medical record, patient did not wish or was not able to name a surrogate decision maker or provide an advance care plan. Patient has no living will. Patient has no healthcare POA. * Since the last office visit there have been no interval operations, hospitalizations, important illnesses or injuries. * HTN-Takes and tolerates meds without side effects. No alcohol. no tobacco. no exercise. low salt. Reviewed recommendation for 150 minutes of exercise per week including 2 days of weight training if over age 50. no home cks. * a lot of allergy sx have gone now off wendi. uses only prn singualir and flonase * Hypothyroid- is euthyroid on replacement. Thyroid ros is unremarkable. * osteopenia on bisphos for last 2 yrs and * Advised on smoking cessation. Reviewed benefits, options for treatment and risks of continued smoking. * cont to smoke, neveres on edge * insomnia up to 3 hrs sl, demar+ * recc flu and covid booster [facility] Work Phone: reason for referral (narrative)* Consultation (Routine) - Authorized Specialty Diagnoses / Procedures Referred By Yunier t Referred To Contact Primary Care Diagnoses Insomnia, unspecified type Hypothyroidism, unspecified type Mixed hyperlipidemia Procedures Follow Up In Primary Care Ganga Tay MD [address] [place] [address] Referral ID Status Reason Start Date Expiration Date V isits Requested Visits Authorized [id number] Authorized 02/18/2023 08/17/2023 1 1 [facility] Work Phone: Reason for referral (narrative)No reason for referral [facility] Work Phone: Reason for visit Narrative* Procedure (Routine) - Authorized Specialty Diagnoses / Procedures Referred By Contac t Referred To Contact Pain Medicine / Procedural Diagnoses Lumbar radiculopathy Procedures Epidural Steroid Injection ND NJX DX/THER SBST INTRLMNR LMBR/SAC W/IMG GDRaul Solares, RADIAL DRILL OPERATOR-GRADUATING MACHINE OPERATOR [address] [place] [address] Phone: tel: fax: [facility] [place] [address] [place] [phone] fax: Referral ID Status Reason Start Date Expiration Date Visits Requested Visits Authorized [id number] Authorized Perform Procedure 08/24/2024 08/24/2025 1 1 [facility] Work Phone: Assessments Diagnosis Trigger thumb, left thumb Summary Purpose Family History No Family History Records FoundUnknown Family Member Name Dates Details Pancreatic abnormality: Moth er Status:Active Family history of hypertensi on: Mother, Father(V17.49, Z82.49) Status:Active Unknown Family Member Name Dates Details Pancreatic abnormality: Moth er Status:Active Family history of hypertensi on: Mother, Father(V17.49, Z82.49) Status:Active Unknown Family Member Name Dates Details Family history of hypertensi on: Mother, Father(V17.49, Z82.49) Status:Active Pancreatic abnormality: Moth er Status:Active Unknown Family Member Name Dates Details Family history of hypertensi on: Mother, Father(V17.49, Z82.49) Status:Active Pancreatic abnormality: Moth er Status:Active Unknown Family Member Name Dates Details Family history of hypertensi on: Mother, Father(V17.49, Z82.49) Status:Active Pancreatic abnormality: Moth er Status:Active Unknown Family Member Name Dates Details Family history of hypertensi on: Mother, Father(V17.49, Z82.49) Status:Active Pancreatic abnormality: Moth er Status:Active Unknown Family Member Name Dates Details Family history of hypertensi on: Mother, Father(V17.49, Z82.49) Status:Active Pancreatic abnormality: Moth er Status:Active Unknown Family Member Name Dates Details Family history of hypertensi on: Mother, Father(V17.49, Z82.49) Status:Active Pancreatic abnormality: Moth er Status:Active Relationship Condition Age at Onset Recorded Date/T samantha mother Hypertension Unknown Malignant neoplasm Unknown father Hypertension Unknown grandmother Cardiac disease Unknown Advance Directives No Advanced Directives Records FoundDocuments on File Type Date Recorded 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 * POSITIVE COVID- WANTS ANTIBODIES 6 MO FUMCW..6 MO FU . REV LABS3 MO FU. NO LONGER TAKING TRAZODONE CAUSED A RASH, ANXIETY AND DID NOT HELP WITH SLEEP Reason for Referral Specialty Diagnoses / Procedures Referred By Yunier chaudhry Referred To Contact Radiology Diagnoses Breast cancer screening by mammogram Procedures BI mammo bilateral screening tomosynthesis Ganga Tay MD [address] [place] [address] Referral ID Status Reason Start Date Expiration Date Visits Requested Visits Authorized [id number] Authorized Perform Procedure 08/26/2023 08/25/2024 1 1 Specialty Diagnoses / Procedures Referred By Yunier chaudhry Referred To Contact Radiology Diagnoses Nicotine dependence, cigarettes, uncomplicated Procedures CT lung screening follow up CT chest wo IV contrast Ganga Tay MD [address] [place] [address] Referral ID Status Reason Start Date Expiration Date Visits Requested Visits Authorized [id number] Pending Review Perform Procedure 08/26/2023 08/25/2024 1 1 Specialty Diagnoses / Procedures Referred By Contac t Referred To Contact Radiology Diagnoses Nicotine dependence, cigarettes, uncomplicated Procedures CT lung screening low dose Ganga Tay MD [address] [phone] Referral ID Status Reason Start Date Expiration Date Visits Requested Visits Authorized [id number] Pending Review Perform Procedure 08/27/2023 08/26/2024 1 1 Chief Complaint and Reason for Visit Chief Complaint Admit Date LUMBAR SPINE November 29, 2024 9:5 9am Room 3 November 29, 2024 10: 31am Pain January 03, 2025 1:1 2pm Reason for Visit Admit Date Lumbar stenosis with neurogenic claudica tion November 29, 2024 9:59am Degenerative disc disease, lumbar November 29, 2024 9:59am Chief Complaint Admit Date LUMBAR SPINE November 29, 2024 9:5 9am Room 3 November 29, 2024 10: 31am Pain January 03, 2025 1:1 2pm LUMBAR SPINE January 13, 2025 1:5 9pm pain January 27, 2025 10:45a m Reason for Visit Admit Date Lumbar stenosis with neurogenic claudica tion November 29, 2024 9:59am Degenerative disc disease, lumbar November 29, 2024 9:59am Lumbar stenosis with neurogenic claudica tion January 13, 2025 1:59pm Chief Complaint Admit Date LUMBAR SPINE November 29, 2024 9:5 9am Room 3 November 29, 2024 10: 31am Pain January 03, 2025 1:1 2pm LUMBAR SPINE January 13, 2025 1:5 9pm pain January 27, 2025 10:45a m LUMBAR SPINE February 18, 2025 1:46p m Chief Complaint Admit Date LUMBAR SPINE January 13, 2025 1:5 9pm pain January 27, 2025 10:45a m LUMBAR SPINE February 18, 2025 1:46p m lumbar spine May 10, 2025 9: 47am Reason for Visit Admit Date Lumbar stenosis with neurogenic claudica tion January 13, 2025 1:59pm Lumbar disc herniation with radiculopath y February 18, 2025 1:46pm Lumbar scoliosis February 18, 2025 1:46p m Lumbar stenosis with neurogenic claudica tion February 18, 2025 1:46pm Osteopenia February 18, 2025 1:46p m Spondylolisthesis, lumbar region January 1:46pm Lumbar disc herniation with radiculopath y May 10, 2025 9:47am Lumbar scoliosis May 10, 2025 9: 47am Lumbar stenosis with neurogenic claudica tion May 10, 2025 9:47am Obesity (BMI 30.0-34.9) May 10 9:47am Spondylolisthesis, lumbar region May 10, 2025 9:47am Additional Source Comments INFORMATION SOURCE (unrecogn ized section and content) DATE CREATED AUTHOR 03/13/2018 [facility] DATE CREATED AUTHOR AUTHOR'S ORGANIZ ATION 03/24/2019 [facility] DATE CREATED AUTHOR AUTHOR'S ORGANIZ ATION 08/29/2020 [facility] DATE CREATED AUTHOR AUTHOR'S ORGANIZ ATION 08/23/2022 [facility] DATE CREATED AUTHOR AUTHOR'S ORGANIZ ATION 11/06/2022 [facility] DATE CREATED AUTHOR AUTHOR'S ORGANIZ ATION 08/08/2024 [facility] DATE CREATED AUTHOR AUTHOR'S ORGANIZ ATION 11/04/2024 [facility] DATE CREATED AUTHOR AUTHOR'S ORGANIZ ATION 11/17/2024 [facility] DATE CREATED AUTHOR AUTHOR'S ORGANIZ ATION 05/13/2025 [facility] DATE CREATED AUTHOR AUTHOR'S ORGANIZ ATION 05/13/2025 [facility] DATE CREATED AUTHOR AUTHOR'S ORGANIZ ATION 05/14/2025 [facility] Reason for Visit (unrecogniz ed section and content) Reason Comments Follow-up 3 mo Specialty Diagnoses / Procedures Referred By Yunier chaudhry Referred To Contact Primary Care Diagnoses Type 2 diabetes mellitus without complication, without long-term current use of insulin Procedures Follow Up In Primary Care Ganga Tay MD [address] [address] Phone: tel: fax: Referral ID Status Reason Start Date Expiration Date V isits Requested Visits Authorized [id number] Authorized 11/15/2024 11/15/2025 1 1 Reason Comments Medicare Annual Wellness Visit Subsequen t Specialty Diagnoses / Procedures Referred By Contac t Referred To Contact Radiology Diagnoses Nicotine dependence, cigarettes, uncomplicated Procedures CT lung screening low dose Ganga Tay MD [address] [place] [address] Referral ID Status Reason Start Date Expiration Date Visits Requested Visits Authorized [id number] Pending Review Perform Procedure 08/27/2023 08/26/2024 1 1 Reason Comments URI Sinus congestion, fa ce pressure, cough, sore throat X 1 week Reason Comments Back Pain Back pain x 2 weeks, tripped over a dog about a month ago. Increased urination but no pain. Reason Comments Follow-up ER 08/03/24 Specialty Diagnoses / Procedures Referred By Contac t Referred To Contact Family Medicine / Primary Care Diagnoses Acute midline low back pain without sciatica Hyponatremia Aly Hess, DO [address] [place] [address] Phone: tel: fax: Referral ID Status Reason Start Date Expiration Date Visits Requested Visits Authorized [id number] Authorized Specialty Services Required 08/03/2025 1 1 Reason Comments Follow-up 1 wk Specialty Diagnoses / Procedures Referred By Contac t Referred To Contact Primary Care Diagnoses Acute midline low back pain without sciatica Procedures Follow Up In Primary Care Ganga Tay MD [address] [address] Phone: tel: fax: Referral ID Status Reason Start Date Expiration Date V isits Requested Visits Authorized [id number] Authorized 08/09/2024 08/09/2025 1 1 Reason Comments Pain NPV for xiang low back pain with radiation to xiang hips (R>L) around to xiang groin areas. Pain is described as a constant stabbing pain. Patient states she will occasionally experience a tingling/numbing sensation down the front of both legs. Pain score today is 10/10. Pain started about 2 months ago. No injury noted. Getting into and out of a chair and doing daily activities causes a lot of pain. Heat and pain medications help relieve some pain. Specialty Diagnoses / Procedures Referred By Contac t Referred To Contact Pain Medicine Diagnoses Acute midline low back pain without sciatica Ganga Tay MD [address] [address] Phone: tel: fax: [facility] Medical Office Building [address] [place] [address] Phone: tel: fax: Referral ID Status Reason Start Date Expiration Date Visits Requested Visits Authorized [id number] Authorized Specialty Services Required 4 08/09/2025 1 1 Reason Comments Follow-up 6 wk rev labs Specialty Diagnoses / Procedures Referred By Contac t Referred To Contact Primary Care Diagnoses Lumbar radiculopathy Primary hypertension Procedures Follow Up In Primary Care Ganga Tay MD [address] [address] Phone: tel: fax: Referral ID Status Reason Start Date Expiration Date V isits Requested Visits Authorized [id number] Authorized 08/30/2024 08/30/2025 1 1 Reason Comments Med Management FOLLOW UP GABAPENTIN INCREASE FROM DR. TAY, SHE CONTINUES FLEXERIL AND DICLOFENAC, PATIENT STATES SHE IS TOLERATING THE MEDICATIONS, SHE TAKES THE DICLOFENAC WHEN SHE HAS PAIN AND THEN GET RELIEF AFTER TAKING IT, RIGHT HIP PAIN WRAPPING INTO THE RIGHT GROIN AND THIGH, SOMETIMES SHE GETS PAIN TO THE KNEE, SHE HAS PAIN WITH TRANSITIONING, STANDING, STAIRS SHE TAKES ONE AT A TIME, SHE IS ABLE TO DRESS HERSELF NOW, SHE STATES WEARING JEANS INCREASES HER PAIN Reason Comments Follow-up 5 wk Reason Comments Pre-op Exam Care Teams (unrecognized sec tion and content) Tubing Drier Relationship Specialty Start Date End Date Ganga Tay MD [address] [place] [address] PCP - General 05/25/19 Ganga Tay MD [address] [place] [id number] PCP - [employer] PCP 09/22/21 Tubing Drier Relationship Specialty Start Date End Date Ganga Tay MD [address] [place] [address] PCP - General 05/25/19 Ganga Tay MD [address] [place] [address] PCP - [employer] PCP 09/22/21 Tubing Drier Relationship Specialty Start Date End Date Ganga Tay MD [address] [place] [address] PCP - General 05/25/19 Ganga Tay MD [address] [place] [address] PCP - [employer] PCP 09/22/21 Tubing Drier Relationship Specialty Start Date End Date Ganga Tay MD [address] [address] PCP - [employer] PCP 09/22/21 Ganga Tay MD [address] [address] PCP - General Family Medicine 07/05/24 Tubing Drier Relationship Specialty Start Date End Date Ganga Tay MD [address] [address] PCP - [employer] PCP 09/22/21 Ganga Tay MD [address] [address] PCP - General Family Medicine 07/05/24 Tubing Drier Relationship Specialty Start Date End Date Ganga Tay MD [address] [place] [address] PCP - [employer]age PCP 09/22/21 Ganga Tay MD [address] [place] [address] PCP - General Family Medicine 07/05/24 Tubing Drier Relationship Specialty Start Date End Date Ganga Tay MD [address] [place] [address] PCP - [employer]age PCP 09/22/21 Ganga Tay MD [address] [place] [address] PCP - General Family Medicine 07/05/24 Tubing Drier Relationship Specialty Start Date End Date Ganga Tay MD [address] [place] [address] PCP - [employer]age PCP 09/22/21 Ganga Tay MD [address] [place] [address] PCP - General Family Medicine 07/05/24 Tubing Drier Relationship Specialty Start Date End Date Ganga Tay MD [address] [place] [address] PCP - [employer]age PCP 09/22/21 Ganga Tay MD [address] [place] [address] PCP - General Family Medicine 07/05/24 Tubing Drier Relationship Specialty Start Date End Date Stencel, Ganga D, MD [address] [place] [address] PCP - [employer]age PCP 09/22/21 Ganga Tay MD [address] [place] [address] PCP - General Family Medicine 07/05/24 Tubing Drier Relationship Specialty Start Date End Date Ganga Tay MD [address] [place] [address] PCP - [employer]age PCP 09/22/21 Ganag Tay MD [address] [place] [address] PCP - General Family Medicine 07/05/24 Tubing Drier Relationship Specialty Start Date End Date Ganga Tay MD [address] [place] [address] PCP - [employer]age PCP 09/22/21 Ganga Tay MD [address] [place] [address] PCP - General Family Medicine 07/05/24 Tubing Drier Relationship Specialty Start Date End Date Ganga Tay MD [address] [place] [address] PCP - [employer]age PCP 09/22/21 Ganga Tay MD [address] [place] [address] PCP - General Family Medicine 07/05/24 Team Status: Active Member Role Status Dates Dr. Ganga Tay MD Primary Care Provider Active Team Status: Inactive Member Role Status Dates No Primary Care Physician Primary Care Provider Active Start: November 29, 2024 End: November 29, 2024 No Primary Care Physician Referring Provider Active Start: November 29, 2024 End: November 29, 2024 TERRI Holland Attending Provider Active Star t: November 29, 2024 End: November 29, 2024 Team Status: Inactive Member Role Status Dates No Primary Care Physician Primary Care Provider Active Start: November 29, 2024 End: November 29, 2024 Dr. Cale Goyal MD Attending Provider Active S tart: November 29, 2024 End: November 29, 2024 Team Status: Inactive Member Role Status Dates TERRI Holland Attending Provider Active Star t: January 03, 2025 End: January 03, 2025 TERRI Holland Referring Provider Active Star t: January 03, 2025 End: January 03, 2025 Dr. Ganga Tay MD Primary Care Provider Active Start: January 03, 2025 End: January 03, 2025 Team Status: Inactive Member Role Status Dates Dr. Ganga Tay MD Primary Care Provider Active Start: January 13, 2025 End: January 13, 2025 Dr. Ganga Tay MD Referring Provider Active Start: January 13, 2025 End: January 13, 2025 TERRI Holland Attending Provider Active Star t: January 13, 2025 End: January 13, 2025 Team Status: Inactive Member Role Status Dates Dr. Ganga Tay MD Primary Care Provider Active Start: January 27, 2025 End: January 27, 2025 TERRI Holland Attending Provider Active Star t: January 27, 2025 End: January 27, 2025 TERRI Holland Referring Provider Active Star t: January 27, 2025 End: January 27, 2025 Tubing Drier Relationship Specialty Start Date End Date Ganga Tay MD [address] [place] [id number] PCP - [employer] Medicare Advantage PCP 09/22/21 Ganga Tay MD [address] [address] PCP - General Family Medicine 07/05/24 Team Status: Inactive Member Role Status Dates Dr. Ganga Tay MD Primary Care Provider Active Start: February 18, 2025 End: February 18, 2025 Dr. Ganga Tay MD Referring Provider Active Start: February 18, 2025 End: February 18, 2025 Dr. Praveen Alvarenga MD Attending Provider Active Start: February 18, 2025 End: February 18, 2025 Tubing Drier Relationship Specialty Start Date End Date Ganga Tay MD [address] [address] PCP - [employer] Medicare [employer]age PCP 09/22/21 Ganga Tay MD [address] [address] PCP - [facility] Medicine 07/05/24 Team Status: Active Member Role/Relationship Status Dates Dr. Ganga Tay MD Primary Care Provider Active Team Status: Inactive Member Role/Relationship Status Dates Dr. Ganga Tay MD Primary Care Provider Active Start: January 13, 2025 End: January 13, 2025 Dr. Ganga Tay MD Referring Provider Active Start: January 13, 2025 End: January 13, 2025 TERRI Holland Attending Provider Active Star t: January 13, 2025 End: January 13, 2025 Team Status: Inactive Member Role/Relationship Status Dates Dr. Ganga Tay MD Primary Care Provider Active Start: January 27, 2025 End: January 27, 2025 TERRI Holland Attending Provider Active Star t: January 27, 2025 End: January 27, 2025 TERRI Holland Referring Provider Active Star t: January 27, 2025 End: January 27, 2025 Team Status: Inactive Member Role/Relationship Status Dates Dr. Ganga Tay MD Primary Care Provider Active Start: February 18, 2025 End: February 18, 2025 Dr. Ganga Tay MD Referring Provider Active Start: February 18, 2025 End: February 18, 2025 Dr. Praveen Alvarenga MD Attending Provider Active Start: February 18, 2025 End: February 18, 2025 Team Status: Inactive Member Role/Relationship Status Dates Dr. Ganga Tay MD Primary Care Provider Active Start: May 10, 2025 End: May 10, 2025 Dr. Ganga Tay MD Referring Provider Active Start: May 10, 2025 End: May 10, 2025 Dr. Praveen Alvarenga MD Attending Provider Active Start: May 10, 2025 End: May 10, 2025 Scheduled Active and Recently Administ ered Medications (unrecognized section and content) Medication Order 08/01/2024 08/02/2024 08/03/2024 morphine injection 4 mg (COMPLETED) 4 mg, intravenous, Once, On Fri08/03/24 at 1125, For 1 dose 1200 (Given - Provid er: Brenda Yepez RN) ondansetron (Zofran) injection 4 mg (COMPLETED) 4 mg, intravenous, Once, On Fri08/03/24 at 1125, For 1 dose, When administering via IV Push, administer over 3-5 minutes. 1200 (Given - Provid er: Brenda Yepez RN) Goals (unrecognized section and content) Goals may be documented in a n alternate sectionGoals may be documented in an alternate sectionGoals may be documented in an alternate sectionGoals may be documented in an alternate section FOR RECORDS PERTAINING TO PATIENTS WHO ARE OR HAVE BEEN ENROLLED IN A CHEMICAL DEPENDENCY/SUBSTANCEABUSE PROGRAM, SOME INFORMATION MAY BE OMITTED. This clinical summary was aggregated from multiple sources. Caution should be exercised in using it in the provision of clinical care. This summary normalizes information from multiple sources, and as a consequence, information in this document may materially change the coding, format and clinical context of patient data. In addition, data may be omitted in some cases. CLINICAL DECISIONS SHOULD BE BASED ON THE PRIMARY CLINICAL RECORDS. [facility]. provides no warranty or guarantee of the accuracy or completeness of information in this document.
[2025-05-16] MEDS: Lactated Ringers 1,000 ML 15 ML IV (05:45)
[2025-05-16] MEDS: Magnesium 1 GM over 15 mins IV (06:29)
--- NOTE | 2025-05-16 07:02 | PRE.ANES_ITS ---
ASA Classification* ASA Classification ASA Classification: 3 Assessment & Plan Anesthesia* Anesthesia Assessment Anesthesia Assessment: Discussed sedation and/or anesthesia options, risks, benefits, and alternatives with patient/parents/legal guardian/POA. Questions invited. The patient/parents/legal guardian/POA seems to understand and agrees to proceed with anesthesia plan. Reviewed the physical assessment, medical history, allergy history and patient home medications list prior to surgery/procedure/anesthetic and documented any changes. Performed airway and anesthesia risk assessments. Anesthesia Type Anesthesia Type: General History Source History Obtained from:: Patient and Chart Anesthesia Focused Assessment* Temperature: 97.9 F Pulse Rate: 82 Blood Pressure: 165/96 Respiratory Rate: 18 Pulse Ox: 96 Oxygen Delivery Method: Room Air Airway Assessment Mouth opens: 2 cm Mallampati Score: II Teeth Condition: Intact Neck Range of motion (ROM): Full ROM Labs Anesthesia Preop lab: CBC WBC 7.2 K/mm3 (4.4-11.0) 05/10/25 11:03 05/10/25 RBC 4.14 M/mm3 (4.2-5.4) L 05/10/25 11:03 05/10/25 Hgb 13.1 g/dL (12.0-15.0) 05/10/25 11:03 05/10/25 Hct 37.8 % (37-47) 05/10/25 11:03 05/10/25 Plt Count 252 K/mm3 (150-450) 05/10/25 11:03 05/10/25 CHEMISTRY Potassium 4.8 mmol/L (3.3-5.1) 05/10/25 11:03 05/10/25 Sodium 137 mmol/L (133-145) 05/10/25 11:03 05/10/25 Magnesium 2.3 mg/dL (1.5-2.2) H 05/10/25 11:03 05/10/25 BUN 18 mg/dL (4-19) 05/10/25 11:03 05/10/25 Creatinine 1.10 mg/dL (0.70-1.20) 05/10/25 11:03 05/10/25 Glucose 107 mg/dL (70-99) H 05/10/25 11:03 05/10/25 TSH 0.792 uIU/mL (0.300-4.200) 05/10/25 11:03 08/06/16 COAG Pre-Assessment Diagnosis/Proposed Procedure Planned Operative Procedure(s): 360 Lumbar Fusion L2-3, L3-4 and L4-5, possible cement augmentation Anesthesia History Anesthesia History - technology advisor: Anesthesia History - technology advisor Hx Hospitalization No 05/02/25 08:28 Any Problems With Anesthesia No 05/02/25 08:28 Cholinesterase deficiency No 05/02/25 08:28 You/Your Family Experience No 05/02/25 08:28 fever (hyperthermia) with Relationship Recent Exposure to Contagious No 05/16/25 06:01 Disease Does patient have nerve No 05/02/25 08:28 stimulator Patient instructed to have device shut off --Does patient have Pacemaker No 05/16/25 06:01 or ICD? When Was Last Pacemaker Check QUESTION #4 FULL TEXT: You/Your Family Experience fever (hyperthermia) with Anesthesia Last Oral Intake Last Oral intake: Last Oral Intake NPO since 03:20 05/16/25 06:01 Meds taken in AM with sips of Yes 05/16/25 06:01 water? Meds patient instructed to SEE MEDLIST 05/16/25 06:01 take am of surgery PONV PONV - technology advisor: PONV - technology advisor Female Yes 05/02/25 08:28 HX of Motion Sickness No 05/02/25 08:28 HX of N/V After Surgery No 05/02/25 08:28 Non-Smoker No 05/02/25 08:28 Duration of Surgery greater Yes 05/02/25 08:28 than 60 minutes Number of Risk Factors 2 05/02/25 08:28 PONV Score Moderate Risk 05/02/25 08:28 Height & Weight Height & Weight: Anesthesia: Height & Weight Height 5 ft 9 in 05/16/25 06:01 Weight: 105 kg 05/16/25 06:01 Body Mass Index (BMI) 34.2 05/16/25 06:01 Respiratory Assessment Respiratory Assessment - technology advisor: Respiratory Tract Infection Hx - technology advisor Hx Respiratory Tract Infection No 05/02/25 08:28 STOP Sleep Apnea STOP Sleep Apnea - technology advisor: STOP Sleep Apnea - technology advisor Hx Hypertension Yes: on meds 05/02/25 08:28 Hx Sleep Apnea No 05/02/25 08:28 CPAP No 08/15/14 19:02 BIPAP No 08/15/14 19:02 Do you snore loudly (louder No 05/02/25 08:28 than talking or can be heard Do you often feel tired/ No 05/02/25 08:28 fatigued/ sleepy during daytime? Has anyone observed you stop No 05/02/25 08:28 breathing during sleep? STOP Results Negative 05/02/25 08:28 QUESTION #5 FULL TEXT : Do you snore loudly (louder than talking or can be heard through closed doors)? 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 Specify any problems Hx of Preganancy in last 3 No 05/02/25 08:28 Months Nurse Filling Out Transfusion [id number] 05/02/25 08:28 & Questions: Date: 05/02/25 05/02/25 08:28 Time: 08:30 05/02/25 08:28 Patient unable to answer at this time (ie. confused, unrespo /Reproduction History /Reproductive History - technology advisor: /Reproductive Hx- technology advisor Hx Now No 05/02/25 08:28 Gestational Age (in weeks): EDC: Hx Hx Para Hx Section SAB No 05/02/25 08:28 Active Medications Active Medications: Current Medications Generic Name Dose Route Start Last Admin Trade Name Freq PRN Reason Stop Dose Admin Acetaminophen 1,000 mg 05/16/25 08:00 05/16/25 06:31 Acetaminophen 500 Mg Tablet PO 05/16/25 08:01 1,000 mg PREOP ONE Administration Cefazolin Sodium 2 gm/ Sodium 110 mls @ 150 mls/hr 05/16/25 08:00 Chloride IV 05/16/25 08:43 INTRAOP ONE Tranexamic Acid 1,000 mg/ 110 mls @ 440 mls/hr 05/16/25 08:00 Sodium Chloride IV 05/16/25 08:14 INTRAOP ONE Tranexamic Acid 1,000 mg/ 110 mls @ 440 mls/hr 05/16/25 09:00 Sodium Chloride IV 05/16/25 09:14 INTRAOP ONE Magnesium Sulfate 1 gm/ 102 mls @ 408 mls/hr 05/16/25 08:00 05/16/25 06:29 Dextrose IV 05/16/25 08:14 408 mls/hr PREOP ONE Administration Lactated Ringer's 1,000 mls @ 15 mls/hr 05/16/25 05:45 05/16/25 05:45 IV 15 mls/hr .Q48H PREM Administration Insulin Human Lispro 1 - 6 unit 05/16/25 08:00 Insulin Lispro 100 Unit/Ml Insuln.Pen SC 05/16/25 16:00 Q4H PRN PRN BG>/= 180, SEE PROTOCOL Protocol PFSH Medical History (Updated 05/10/25 @ 10:12 by Albania Oviedo RN) Obesity (BMI 30.0-34.9) Wears contact lenses Wears glasses Ambulates with cane Diabetes Arthritis Back pain Dietary restriction Heartburn Smoker Hypertension Thyroid activity decreased Home Medications ?Medication ?Instructions ?Recorded ?Last Taken ?Type atorvastatin 40 mg tablet 40 mg PO QDAY cholesterol 05/15/25 History cyclobenzaprine 10 mg tablet 10 mg PO TID PRN muscle s pasm 11/29/24 05/15/25 History diclofenac sodium 100 mg 100 mg PO QDAY pain 11/29/24 05/16/25 History tablet,extended release 24 hr gabapentin 300 mg capsule 300 mg PO TID PRN pain 11/2905/16/25 History losartan 100 mg tablet 100 mg PO QDAY bp 11/29/24 0 05/16/25 History metformin 500 mg tablet,extended 500 mg PO QAM blood s ugar 11/29/24 05/15/25 History release 24 hr bupropion HCl 150 mg 24 hr tablet, 150 mg PO QDAY depr ession 02/18/25 05/16/25 History extended release levothyroxine 175 mcg tablet 175 mcg PO .qd thyroid 05/16/25 History Allergy/AdvReac Type Severity Reaction Status Date / Time Seasonal Allergies: Uncoded AdvReac Other Verified 05/16/25 05:56 Family History Mother Hypertension Cancer Pancreatic Father Hypertension Grandmother Heart disease Congestive heart failure Grandfather No problems noted. Surgical History Hx of colonoscopy with polypectomy Social History Smoking Status: Current every day smoker alcohol intake: current substance use type: does not use Review of Systems (Anesthesia) ROS Narrative System reviewed and no additional complaints, except as documented. Physical Exam Const alert and oriented x3 Orientation / Consciousness: awake Neck full ROM Resp normal respiratory effort and normal air movement Cardio regular rate and regular rhythm Back/Spine Back/Spine Narrative: Patient has numbness and tingling in the L3 and L4 dermatomal distributions on the right leg. She describes having weakness with ambulation.
--- NOTE | 2025-05-16 07:20 | PCM.HP.BLA ---
History and Physical Date of Admission: 05/16/25 MR#: [id number] Acct: [id number] Name: RENETTA CACERES Rep #: [id number] : 1955 Provider: Dr. Praveen Alvarenga MD Age/Sex: 69/F Location: [facility] Status: Signed Intake Vital Signs 11/29/2509:05 05/10/2510:03 Height 5 ft 9 in 5 ft 9 in Weight: 224 lb BMI 33.0 Intake Visit Reasons: lumbar spine Chief Complaint: Lumbar fusion pre op Accompanied by: Is patient in pain?: No Allergies Seasonal Allergies: Uncoded Adverse Reaction (Verified 05/10/25 10:05) Other Medications ?Medication ?Instructions ?Recorded ?Confirmed ?Type atorvastatin 40 mg tablet 40 mg PO QDAY cholesterol 11/29/24 05/10/25 History cyclobenzaprine 10 mg tablet 10 mg PO TID PRN muscle spasm 11/29/24 05/10/25 History diclofenac sodium 100 mg 100 mg PO QDAY pain 11/29/24 05/10/25 History tablet,extended release 24 hr gabapentin 300 mg capsule 300 mg PO TID PRN pain 11/29/24 05/10/25 History losartan 100 mg tablet 100 mg PO QDAY bp 11/29/24 05/10/25 History metformin 500 mg tablet,extended 500 mg PO QAM blood sugar 11/29/24 05/10/25 History release 24 hr bupropion HCl 150 mg 24 hr tablet, 150 mg PO QDAY depression 02/18/25 05/10/25 History extended release levothyroxine 175 mcg tablet 175 mcg PO .qd thyroid 05/02/25 05/10/25 History Have you fallen in the past year?: No PFSH Medical History (Updated 05/10/25 @ 10:12 by [place]ia Oviedo RN) Obesity (BMI 30.0-34.9) Wears contact lenses Wears glasses Ambulates with cane Diabetes Arthritis Back pain Dietary restriction Heartburn Smoker Hypertension Thyroid activity decreased Surgical History Hx of colonoscopy with polypectomy Family History Mother Hypertension Cancer PancreaticFather HypertensionGrandmother Heart disease Congestive heart failureGrandfather No problems noted. Social History Smoking Status: Light Smoker (<10/day) alcohol intake: current substance use type: does not use HPI lumbar spine Details: This documentation accurately reflects the service provided and the decisions made by me, Dr. Praveen Alvarenga MD 05/10/25 0956. Part of today?s visit was documented by Ann Baez MA, acting as scribe. RENETTA CACERES is a 69 year old F here today for lumbar fusion pre op. Patient would like to go over the surgery details. She would like to know what she can and can't do after the surgery. I went over the surgery pre op soap and the ensure drinks witgh the patient. I also gave her the pre op folder and the instructions how to use the ensure and the soap. The patient is a 69-year-old female presenting with a discussion about her upcoming spinal surgery. She has a history of scoliosis, which is a curvature of the spine, and arthritis, which has resulted in a loss of range of motion. The patient also has diabetes mellitus, which increases her risk of surgical complications. The patient has not had any previous surgeries on her lower back, which reduces her risk of nerve injury during the procedure. She has undergone two sections in the past, resulting in vertical incisions below the belly button. The patient recently quit smoking after 50 years, which is beneficial for her surgical recovery. - Musculoskeletal: Reports difficulty turning over in bed due to back pain. - Neurological: Reports pain primarily on the right side, with potential for pain on the left side post-surgery. Attestation: Documentation on this patient encounter was supported using ambient scribe technology/ voice AI technology. The patient consented to recording for the purpose of documenting the encounter. Provider reviewed content of the generated note prior to signature. 02/18/25: RENETTA CACERES is a 69 year old F here today for bone density review. Patient rates her pain a 2/10 today. She states her pain is always there it just depends on the day, weather and her activity level. She denies any recent injections or treatment since her last visit. 01/13/2025: RENETTA CACERES is a 69 year old F here today for lumbar spine MRI review. Patient states her pain has stayed the same since her last visit. She denies any recent injections since her last visit. Midline abdominal incision from 2 c sections, says that she has diabetes, unsure of last a1c, no heart or lung issues, no blood thinners. 11/29/2024: RENETTA CACERES is a 69 year old F here today for lumbar spine pain. Patient went to the ER in July. Pain since June. They did a CT scan. She had an epidural in September. That made the pain worse. It hurts on the right side. The pain starts on the right side of the back then comes down to the knee. Denies any numbness in the foot and toes. Patient can't walk for periods of time. Has to sleep in a recliner. She did water therapy in September and that didn't help. Physical therapy put a heating pad on her and it didn't work. Patient was told not to got to a chiropractor. Hasn't went to pain management. Denies any surgery done on her back. Some days are better then others with balance. Tingling in shins initially when her pain started but currently does not have any tingling or symptoms below the knees. Pain with walking and can only walk a short distance before needing to rest due to the pain in her right leg. She relies on a shopping cart to the leg pain which makes it more bearable. No benefit cyclobenzaprine been taking gabapentin since August. Ortho Exam General General: Yes no acute distress Neurologic: Yes alert and Yes oriented x3 Psychologic: Yes reasonable and appropriate Spine SPINE TESTING CERVICAL THORACIC LUMBAR Musculoskeletal Strength 0=absent - 5=normal Details: Neurological exam of the lower extremities shows 5x5 power increased pain with hip flexion. Normal sensations across all dermatomes. No hyperreflexia. No midline and mild right paraspinal tenderness. Increased pain with back extension. Coding Level of Care Code Off vis,est,level 4 Diagnoses Lumbar stenosis with neurogenic claudication M48.062 Other secondary scoliosis, lumbar region M41.56 Scoliosis type: other secondary scoliosis Spondylolisthesis, lumbar region M43.16 Lumbar disc herniation with radiculopathy M51.16 Obesity (BMI 30.0-34.9) E66.811 Time Spent (min) 35 Assessment and Plan Assessment and Plan (1) Lumbar stenosis with neurogenic claudication: Status: Acute (2) Lumbar scoliosis: Status: Acute Qualifiers: Scoliosis type: other secondary scoliosis Qualified Code(s): M41.56 - Other secondary scoliosis, lumbar region (3) Spondylolisthesis, lumbar region: Status: Acute (4) Lumbar disc herniation with radiculopathy: Status: Acute (5) Obesity (BMI 30.0-34.9): Status: Acute Plan Again reviewed prior Xrays show a mild levoscoliosis, multilevel disc height loss, a retrolisthesis of L2 on L3, and subtle spondylolisthesis at L4-5 on flexion which reduces in extension. Reviewed MRI from January 03, 2025 which shows a disc herniation at L2-3 right paracentral with inferior migration, there is moderate central stenosis from L2-5 with severe right foraminal stenosis at L2-5. L1-2 and L5-S1 show mild to moderate foraminal stenosis and disc degeneration. 1. Scoliosis - The patient will undergo spinal surgery to correct the curvature and stabilize the spine with screws and rods. 2. Diabetes Mellitus - The patient is advised to maintain good glycemic control to minimize surgical risks. 3. Arthritis - Post-surgery, the patient will engage in physical therapy to improve mobility and manage arthritis symptoms. - Follow the pre-operative instructions provided by the PAT nurse, especially regarding medication management. - Maintain good blood sugar control to aid in recovery. - Engage in physical activity as advised post-surgery to enhance recovery and prevent complications. - Avoid smoking to improve healing and reduce surgical risks. For osteopenia, She was on bisphosphonates but these have been discontinued as her bone scan improved from previously done few years ago. She continues with vitamin D supplementation. She is unable to bend over, and she is not real steady on her feet. Right leg is weaker then the left. I examined the patient today. I went over the MRI and the bone density results with the patient today. She has developed significant neurogenic claudication and difficulty walking distances because of the stenosis. Her function is declining progressively over the last year or 2. Discussed treatment options which include continued nonoperative treat measures versus surgery. Patient is no longer getting relief with different modalities of nonsurgical treatment. She wishes to proceed with surgical intervention. Surgical options were discussed. L2-5 decompression fusion was discussed in detail. Possibility of adjacent segment degeneration at L1-2 and L5-S1 were discussed. I recommend L2-5 and to posterior fusion with indirect decompression. All risk benefits and alternatives were discussed in detail. Possibility of cement augmentation was discussed because of the osteopenia. Discussed this procedure in detail and explained the risks, benefits and alternatives. The risks of surgery include but are not limited to infection, bleeding, injury to nerves or vessels, need for further surgery, ileus, vascular injury, visceral injury, DVT, pulmonary embolism, pneumonia, atelectasis, cardiopulmonary event, pseudoarthrosis, hardware failure, gait abnormality, adjacent segment degeneration. Discussed post-surgery restrictions in detail such as no bending, lifting, or twisting. Answered all questions to the patient?s satisfaction. Patient understands and agrees to proceed with surgery. Consent was signed. Follow up 2 weeks after surgery or sooner if pain, swelling, numbness or associated symptoms, or concerns develop. All questions answered. Patient in agreement of plan.
[2025-05-16] MEDS: Midazolam 2 MG/2 ML Syringe IV (07:41)
[2025-05-16] MEDS: Lidocaine 1% (5 ml sdv) 5 ML Vial 10 ML IV (07:45)
--- NOTE | 2025-05-16 07:45 | RAD_ITS ---
PROCEDURE: LUMBAR SPINE 2 OR 3 VIEWS 05/16/2025 REASON FOR EXAM: 360 LUMBAR FUSION, L2-3, L3-4, L4-5 TECHNIQUE: LUMBAR SPINE 2 OR 3 VIEWS COMPARISON: Lumbar FINDINGS: Intraoperative fluoroscopy was performed of the lumbar spine. 142.9 seconds of fluoroscopic time. 100.57 mGy. See procedure report for full details. RAD/Lumbar Spine 2 or 3 Views IMPRESSION: As above. Reading Location: [facility]
[2025-05-16] MEDS: Cefazolin 1 GM/5 ML Vial 4 GM IV (11:40)
[2025-05-16] MEDS: TRANEXAMIC ACID 1,000 MG/10 ML ML 2000 MG IV (12:13)
[2025-05-16] MEDS: fentaNYL 100 MCG/2 ML Ampul 200 MCG IV (12:40)
--- NOTE | 2025-05-16 13:20 | PCM.POST.ANE ---
Anesthesia: Postop Eval I Current Vital Signs Temperature: 97 F Pulse Rate: 82 Blood Pressure: 106/88 Respiratory Rate: 16 Pulse Ox: 100 Oxygen Delivery Method: Simple Mask Oxygen Flow Rate (L/min): 6 Assessment Airway patent: Yes Spontaneous unlabored respirations: Yes Mental status: Awake and Calm nausea: No Vomiting: No Anesthesia Complication: No Fluid Hydration Crystalloid volume administer (ml): 2,200 Total IV fluid infused: 2,200 Progress Note Anesthesia document: Postop Eval 1 completed: Yes
--- NOTE | 2025-05-16 13:38 | PCM.OPRPT ---
Procedures Musculoskeletal 20xxx-29xxx: Other Procedure See Report Operative Report (Standard) Operative Information Date of Procedure: 05/16/25 Pre-Operative Diagnosis: L2-5 disc degeneration, stenosis with neurogenic claudication, degenerative scoliosis Post-Operative Diagnosis: Same Surgery/Procedure Performed: L2-5 oblique lumbar interbody fusion non destructive testing inspector: Yes Launching Pad Mechanic: Ayleen House Tasks completed by first press operator: Closing, Removing tissue, Hemostasis: Electrocautery and Retracting Type of Anesthesia: General RN Documented Start/Stop Times: Operation Date: 05/16/25 07:30 Case Time Into Pre-Op 05/16/25 05:40 Out of Pre-Op 05/16/25 07:28 Anesthesia Start 05/16/25 07:38 Into Room 05/16/25 07:38 Procedure Start 05/16/25 08:13 Procedure End 05/16/25 12:56 Anesthesia End 05/16/25 13:04 Out of Room 05/16/25 13:04 Procedure Start Time: 08:13 Procedure Stop Time: 12:56 Select all DRAINS/GRAFTS/IMPLANTS that apply: Graft Graft details: Allograft cancellous chips, autologous iliac crest bone marrow aspirate and Implanted device Implanted device details: DePuy cougar lateral lumbar interbody cage?peek Estimated Blood Loss: 100 cc Specimen collected: No Description of surgery: Preoperative diagnosis: L2-5 disc degeneration, stenosis with neurogenic claudication, degenerative scoliosis Postoperative diagnosis: Same Name of procedures L2-5 oblique lumbar interbody fusion (OLIF), minimally invasive right sided approach, lateral decubitus: ? L2-3 anterolateral spinal fusion 19484 ? L3-4 anterolateral fusion 34209/51 ? L4-5 anterolateral fusion 30666/51 ? L2-3 insertion of cage 12195 ? L3-4 insertion of cage 10958/51 ? L4-5 insertion of cage 34155/51 ? Bone graft aspirate left iliac crest separate incision ? Allograft cancellous chips Attending Surgeon: Dr. Praveen Alvarenga Estimated blood loss: 100 mL Anesthesia: General Complications: None Indications: Patient is a 69-year-old pleasant lady who has had a long history of low back pain and right worse than left lower extremity ideation, difficulty walking distances. Xrays & MRI revealed L2-5 disc degeneration with stenosis with degenerative scoliosis. After undergoing a prolonged period of nonoperative treatment, the patient elected to undergo surgical decompression & fusion. All surgical options were discussed with the patient including anterior and posterior approaches. All risks and benefits associated with the procedure were explained to the patient. The risks include but are not limited to infection, bleeding, injury to nerves and vessels including major vessels like IVC and aorta, persistent paresthesia, persistent pain, dural tear, need for further procedures, adjacent segment degeneration, pseudoarthrosis, hardware failure, retrograde ejaculation, paralytic ileus, etc. Procedure: The patient was identified in the preoperative holding suite using Unique patient identifiers. Skin was marked, consent was reviewed, and all questions were answered. The patient was then brought back to the operative room. A surgical timeout was performed to make sure correct procedure was being done on the correct patient and all operative room staff were on the same page. General endotracheal anesthesia was then given to the patient. Terrell catheter was inserted. The patient was then carefully positioned in left lateral decubitus position with the right side up on a regular OR table. Axillary roll was placed and all bony prominences were well- padded. Hip positioners were placed in the posterior buttocks and anterior sternal area. The surgical area was prepped and draped in usual fashion. Preoperative antibiotic was injected IV as preoperative antibiotic. A final timeout was then again done just before starting the procedure. A 2 inch incision oblique was taken in the right lower quadrant of the abdomen 2 fingerbreadths away from the iliac crest and the lower ribs. Sharp dissection with Bovie was carried out up to the fascia covering the external oblique. The external oblique, internal oblique and transversus abdominis muscles were split along the muscle fibers and retroperitoneal space was entered. Sponge sticks were utilized to move the bowel and peritoneum chi-tf-djc-way and psoas muscle was exposed staying within the retroperitoneal plane. Spire Realtyframe retractor system was positioned and the retractor blade was applied onto the psoas. The interval between psoas and IVC was developed and appropriate retractors were placed. Once adequate interval was cleared, a disc space was identified and a marker x-ray was taken. This identified the L4-5 disc level. The prepsoas interval was then traced superiorly to expose the L3-4 and L2-3 discs. The segmental vein in the right L4 level was injured and was ligated with silk ties, vascular clips and divided. Annulotomy was done with a long handled knife starting at L4-5. Pituitary was used to remove disc material. Curettes were used to prepare the endplates. Disc space spreaders were utilized to distract and increase the disc height. Near complete discectomy was performed. Trials of serially increasing sizes were used. A Jamshidi needle was used to aspirate bone marrow from the left anterior iliac crest through a separate incision and this aspirate was mixed with the allograft bone chips. A Depuy Carlock cage of size of the 18 x 50 x 14 mm with 15 degrees lordosis was packed with corticocancellous allograft bone chips mixed with bone marrow aspirate. This was inserted into the L4-5 disc space. The retractors were then repositioned to expose the L2-3 and L3-4 disc and the procedure was repeated with complete discectomy and endplate preparation. Smaller disc distractors were also used to bluntly perform a contralateral annulotomy at all 3 levels. Cage size was 18 x 50 x 12 mm at L2-3 and L3-4. AP and lateral C-arm pictures were taken to confirm good position of the cage. Some bone chips were also packed around the cages. Screw with washer was placed into the lower L4 body with a washer partially covering the cage at L4-5. Hemostasis was confirmed. The retractor blades were removed. Closure was done in layers with a continuous strand of # 1 Vicryl in all muscle layers. 2-0 Vicryl was used for subcutaneous tissue and 4-0 for Monocryl for the skin. Steri-Strips were applied and 4 x 4 gauze and Tegaderm were applied. Computer Help Desk Representative Ayleen House PA-C. My physician community assistant was a vital part of this case. They were important in appropriate retraction during the case, and protection of soft tissues during the procedure. Their intimate knowledge of the case and my steps aided in safe and expedient completion of the procedure as well as appropriate position of the patient during the surgery. They were also vital in assisting with closure under my direct supervision. Surgical Findings: See operative note Complications Complications: No
--- NOTE | 2025-05-16 13:44 | PCM.OPRPT ---
Procedures Musculoskeletal 20xxx-29xxx: Other Procedure See Report Operative Report (Standard) Operative Information Date of Procedure: 05/16/25 Pre-Operative Diagnosis: L2-5 disc degeneration, stenosis with neurogenic claudication, degenerative scoliosis Post-Operative Diagnosis: Same Surgery/Procedure Performed: L2-5 posterior spinal segmental fusion hoop flaring machine operator: Yes Engineering Teacher: Ayleen House Tasks completed by first responder: Closing, Removing tissue, Hemostasis: Electrocautery and Retracting Type of Anesthesia: General RN Documented Start/Stop Times: Operation Date: 05/16/25 07:30 Case Time Into Pre-Op 05/16/25 05:40 Out of Pre-Op 05/16/25 07:28 Anesthesia Start 05/16/25 07:38 Into Room 05/16/25 07:38 Procedure Start 05/16/25 08:13 Procedure End 05/16/25 12:56 Anesthesia End 05/16/25 13:04 Out of Room 05/16/25 13:04 Procedure Start Time: 08:13 Procedure Stop Time: 12:56 Select all DRAINS/GRAFTS/IMPLANTS that apply: Graft Graft details: Allograft cancellous chips and Implanted device Implanted device details: DePuy [employer]er prime pedicle screw instrumentation Estimated Blood Loss: 100 cc Specimen collected: No Description of surgery: Preoperative diagnosis: L2-5 disc degeneration, stenosis with neurogenic claudication, degenerative scoliosis Postoperative diagnosis: Same Name of procedures: L2-5 posterior percutaneous pedicle screw instrumented fusion, prone: ? L2-3 posterior spinal fusion 09913 ? L2-5 posterior pedicle screw instrumentation 73420 ? L3-4 posterior fusion 71648/51 ? L4-5 posterior fusion 20430/51 ? Allograft cancellous chips 06655 Attending Surgeon: Dr. Praveen Alvarenga Estimated blood loss: 100 mL (total for entire case) Anesthesia: General Complications: None Description of procedure: After the anterior procedure was complete, the patient was then turned supine. The patient was then transferred to Dillon table in prone position. Back was prepped and draped in usual fashion. C-arm AP view was then taken. C-arm was positioned in a way that L2 was centralized and superior endplate of was parallel to the beam. Spinous process was centered between the pedicles. Midline was marked with skin marker and lateral borders of the pedicles were also marked. Skin marker was also utilized to lion transversely across the middle of the pedicles at L2. 2 transverse paramedian incisions of 1 inch were placed. The fascia was incised vertically. Finger dissection was utilized to palpate the transverse process and facet joint. Viper Prime screws with towers were inserted and docked onto the transverse processes. This was then slowly moved medially to reach the superior articular process of L2. This was then confirmed on C-arm and then a mallet was utilized to drive the trocar into the pedicle going up to the medial wall of the pedicle on AP view. This was performed both sides. C-arm lateral view confirmed that the tip of the trocar was in the vertebral body, and the screw was advanced into the pedicle and vertebral body. This was repeated similarly at L4 and L5 bilaterally. Screw sizes were 7 x 50 mm at L2, L4 and L5 on both sides. 120 mm precontoured titanium 5.5 mm lordotic shanon on both sides were then passed through the screw extensions and reduced down to the screws with the help of Rerecipeer instrumentation system on both sides. AP and lateral view of the C-arm showed good positioning of the screws and cages. Final tightening with the torque screwdriver was then completed. Billingsley was utilized to roughen the facet joint at L2-3, L3-4, L4-5 on the right side. Cancellous allograft bone chips mixed with bone marrow aspirate were then placed over this decorticated area. Hemostasis was achieved. Closure was done in layers with 0 Vicryls for the fascia, 2-0 Vicryls for the subcutaneous tissue, and Monocryl for the skin. Dermabond was applied. Dressings were applied covered with Tegaderm. The patient was then turned supine onto a hospital bed. The patient was extubated and taken to PACU in stable condition. The patient tolerated the procedure well and no complications occurred. Depuy [place] cage & Viper Prime minimally invasive pedicle screw instrumentation system was utilized in this case. No dural tear was identified intraoperatively. I was present for the entirety of the case and performed the surgery. In Home Sales Representative Ayleen House PA-C. My physician occupational therapist assistants was a vital part of this case. They were important in appropriate retraction during the case, and protection of soft tissues during the procedure. Their intimate knowledge of the case and my steps aided in safe and expedient completion of the procedure as well as appropriate position of the patient during the surgery. They were also vital in assisting with closure under my direct supervision. Surgical Findings: See operative note Complications Complications: No
--- NOTE | 2025-05-16 14:59 | POSTOPAN2_ITS ---
Anesthesia Postop Eval I Sum Postop Eval Completion status Anesthesia document: Postop Eval 1 completed: Yes Anesthesia Postop Eval I Summary Anesthesia Postop Eval I Summary: Anesthesia Postop Eval I: Assessment Summary Airway patent Yes 05/16/25 13:21 RECORD LABEL INTERNSHIP.SKOBY Spontaneous unlabored Yes 05/16/25 13:21 RECORD LABEL INTERNSHIP.KRISTIANOBMoses respirations Mental status Awake,Calm 05/16/25 13:21 RECORD LABEL INTERNSHIP.SKOBY nausea No 05/16/25 13:21 RECORD LABEL INTERNSHIP.SKOBY Vomiting No 05/16/25 13:21 RECORD LABEL INTERNSHIP.KRISTIANOBMoses Anesthesia Postop Eval I: Fluid Summary Crystalloid volume administer 2,200 05/16/25 13:21 RECORD LABEL INTERNSHIP.SKOBY (ml) Colloids volume administered ( ml) Blood Product volume administered (ml) Total IV fluid infused 2,200 05/16/25 13:21 RECORD LABEL INTERNSHIP.KRISTIANOBMoses Anesthesia Postop Eval I: Summary Notes Anesthesia Complication No 05/16/25 13:21 RECORD LABEL INTERNSHIP.SHALA Anesthesia Complication Comment: Post-operative progress note Anesthesia: Postop Eval II Evaluation Mental status: Awake Pain Level: 0 nausea: No Vomiting: No Complications Anesthesia Complication: No
--- NOTE | 2025-05-16 14:59 | PCM.POSTANE2 ---
Anesthesia Postop Eval I Sum Postop Eval Completion status Anesthesia document: Postop Eval 1 completed: Yes Anesthesia Postop Eval I Summary Anesthesia Postop Eval I Summary: Anesthesia Postop Eval I: Assessment Summary Airway patent Yes 05/16/25 13:21 [email or web address] Spontaneous unlabored Yes 05/16/25 13:21 BOBBIN INSPECTOR.KRISTIANOBMoses respirations Mental status Awake,Calm 05/16/25 13:21 BOBBIN INSPECTOR.SKOBY nausea No 05/16/25 13:21 BOBBIN INSPECTOR.SKOBY Vomiting No 05/16/25 13:21 BOBBIN INSPECTOR.KRISTIANOBMoses Anesthesia Postop Eval I: Fluid Summary Crystalloid volume administer 2,200 05/16/25 13:21 BOBBIN [email or web address].SKOBY (ml) Colloids volume administered ( ml) Blood Product volume administered (ml) Total IV fluid infused 2,200 05/16/25 13:21 BOBBIN INSPECTOR.KRISTIANOBMoses Anesthesia Postop Eval I: Summary Notes Anesthesia Complication No 05/16/25 13:21 BOBBIN INSPECTOR.SHALA Anesthesia Complication Comment: Post-operative progress note Anesthesia: Postop Eval II Evaluation Mental status: Awake Pain Level: 0 nausea: No Vomiting: No Complications Anesthesia Complication: No
[2025-05-16] MEDS: 0.9% Saline Lock 10 ML Syringe IV (16:49)
[2025-05-16] MEDS: Cefazolin 2 GM in 0.9% Normal Saline (100mL Bag) 100 ML IV ×2 (16:54→23:28)
--- NOTE | 2025-05-16 22:06 | CON.PCM.HO_ITS ---
Assessment & Plan Assessment/Plan (1) Lumbar disc herniation with radiculopathy: PLAN: Plan #Urinary dribbling - Patient reports feeling like she has to urinate multiple times but has been getting up and has only been dribbling - Starting to feel some pressure - Discussed with nursing staff, next time patient gets up advised that she be postvoid bladder scan, if retaining greater than 250 cc can replace Terrell could try void trial again tomorrow #Type 2 diabetes mellitus -Glucose checks and sliding scale insulin - Hold home metformin, can resume on DC #Hypertension - Patient fairly hypertensive postop at 159/92, will continue losartan with holding parameters #Hypothyroidism -Continue Synthroid #Depression/anxiety -Continue home medications #L2-5 disc degeneration, stenosis with neurogenic claudication, degenerative scoliosis - Status post L2-5 posterior spinal segmental fusion with Dr. Alvarenga 05/16/2025 - Management/pain management per primary #DVT ppx: Timing and agent at discretion of primary team Miranda Herr MD Time spent in the patient's overall evaluation, decision-making process, review of diagnostic data, adjustment of management, discussion with other providers, nursing and ancillary staff involved in patient's care documentation, 15 Minutes HPI Consult Data Date of Consult: 05/16/25 HPI Narrative Reason for Consultation: Postop medical management HPI Narrative: RENETTA CACERES, is a 69-year-old female with a history of hypertension, hypothyroidism, depression, diabetes who presented [facility] 05/16/2025 for spinal fusion. Hospitalist contacted for postoperative medical management. Patient evaluated at bedside. She reports having pain near an incision, only other complaint is having to get up multiple times to try to urinate but only dribbles come out, is noting some pressure in her lower abdomen, no nausea, no chest pain or shortness of breath, no other new or acute complaints [facility] Medical History (Updated 05/10/25 @ 10:12 by Albania Oviedo RN) Ambulates with cane Arthritis Back pain Diabetes Dietary restriction Heartburn Hypertension Obesity (BMI 30.0-34.9) Smoker Thyroid activity decreased Wears contact lenses Wears glasses Home Medications ?Medication ?Instructions ?Recorded ?Last Taken ?Type atorvastatin 40 mg tablet 40 mg PO QDAY cholesterol 05/15/25 History cyclobenzaprine 10 mg tablet 10 mg PO TID PRN muscle s pasm 11/29/24 05/15/25 History diclofenac sodium 100 mg 100 mg PO QDAY pain 11/29/24 05/16/25 History tablet,extended release 24 hr gabapentin 300 mg capsule 300 mg PO TID PRN pain 11/2905/16/25 History losartan 100 mg tablet 100 mg PO QDAY bp 11/29/24 0 05/16/25 History metformin 500 mg tablet,extended 500 mg PO QAM blood s ugar 11/29/24 05/15/25 History release 24 hr bupropion HCl 150 mg 24 hr tablet, 150 mg PO QDAY depr ession 02/18/25 05/16/25 History extended release levothyroxine 175 mcg tablet 175 mcg PO .qd thyroid 05/16/25 History Allergy/AdvReac Type Severity Reaction Status Date / Time Seasonal Allergies: Uncoded AdvReac Other Verified 05/16/25 05:56 Family History Mother Hypertension Cancer Pancreatic Father Hypertension Grandmother Heart disease Congestive heart failure Grandfather No problems noted. Surgical History Hx of colonoscopy with polypectomy Social History Smoking Status: Current every day smoker tobacco type: cigarettes alcohol intake: current substance use type: does not use ROS ROS Narrative ROS reviewed and pertinent positives and negatives above Physical Exam Narrative General: Alert, oriented, no apparent distress HEENT: Atraumatic, normocephalic Eyes: Anicteric, normal conjunctiva, extraocular movements grossly intact Neck: Supple Respiratory: Clear to auscultation bilaterally, normal respiratory effort Cardiovascular: Regular rate and rhythm GI: Little bit protuberant without tenderness Extremities: No edema Musculoskeletal: Moving all extremities in bed Neuro: No overt focal neurological deficits Skin: No rashes appreciated Psych: Cooperative Lab / Micro Data 05/10/25 11:03 05/10/25 11:03 Labs: Laboratory Results - last 24 hr 05/16/25 06:02: POC Glucose 127 H 05/16/25 14:28: POC Glucose 177 H Imaging Radiology Impression Lumbar Spine X-Ray 05/16/25 07:45 IMPRESSION: As above. Reading Location: [facility] Charges/Coding Visit Charges Office Visits / Consults: 61252 OV L2 Est 10min
[2025-05-16] MEDS: Senna/Docusate Sodium 1 Tablet 2 TABLET PO (22:33)
[2025-05-17 02:45] VITALS: BP 144/80; PULSE 91; RESP 16; TEMP 36.4; O2SAT 93
--- NOTE | 2025-05-17 05:30 | RAD_ITS ---
PROCEDURE: LUMBAR SPINE 2 OR 3 VIEWS 05/17/2025 REASON FOR EXAM: S/P LUMBAR FUSION TECHNIQUE: LUMBAR SPINE 2 OR 3 VIEWS COMPARISON: 05/16/2025. FINDINGS: Mild levoscoliosis apex at L3. Unremarkable transpedicular screws at L2, L4 and L5 levels. There are diffuse spondylotic changes. Findings are demonstrated to by diffuse disc space narrowing, osteophyte formation and degenerative endplate sclerosis. There is diffuse facet joint arthropathy with secondary bilateral neural foramina narrowing. No fracture or dislocation is seen. No aggressive lytic or blastic bony lesion is noted. Calcified atheromatous plaques are noted. RAD/Lumbar Spine 2 or 3 Views IMPRESSION: No evidence for acute abnormality. Reading [facility]
[2025-05-17 06:30] VITALS: BP 138/85; PULSE 90; RESP 16; TEMP 36.4; O2SAT 97
[2025-05-17 07:40] LABS: Hematocrit 31.5 % (37-47); Hemoglobin 10.4 g/dL (12.0-15.0); Immature Granulocytes Count 0.100 X10^3/uL (0.0-0.0); Mean Corp Hgb Conc 33.0 g/dL (32-36); Mean Corpuscular Volume 94.0 fL (81-99); Mean Platelet Vol. 9.3 fl (6.2-12.0); NRBC Flagged by Analyzer 0 % (0-5); Platelet Count 245 K/mm3 (150-450); RBC Distribution Width CV 13.6 % (11.6-14.6); RBC Distribution Width SD 46.8 fl (35.1-43.9); Red Blood Count 3.35 M/mm3 (4.2-5.4); White Blood Count 12.2 K/mm3 (4.4-11.0)
[2025-05-17 08:10] VITALS: BP 159/86; PULSE 86; RESP 18; TEMP 36.6; O2SAT 96
[2025-05-17 08:20] LABS: Anion Gap 11 (5-15); BUN 13 mg/dL (4-19); BUN/Creat Ratio 16.0 RATIO (10-20); Calcium,Total 8.5 mg/dL (7.6-11.0); Carbon Dioxide 24.7 mmol/L (21.0-32.0); Chloride 97 mmol/L (98-108); Estimated Creatinine Clearance 110.85 ml/min (50-250); Glucose 132 mg/dL (70-99); Potassium 4.2 mmol/L (3.3-5.1)
[2025-05-17] MEDS: Senna/Docusate Sodium 1 Tablet 2 TABLET PO (10:29)
--- NOTE | 2025-05-17 10:42 | CASEMGMT ---
TOBIN RUDD spoke with the patient in her room. Patient reported her and her will be meeting with their attorney at law regarding their will. POA packet provided to the patient. SW asked the patient to provide the hospital a copy once it is completed. MADELAINE Issa
--- NOTE | 2025-05-17 12:47 | CASEMGMT ---
ISAIAS ROJO Assessment: Face to Face with pt for initial transition planning/care coordination assessment. ISAIAS ROJO introduced self and role at [facility], pt voices understanding and consents to assessment. Pt is A&O x4 and answers all questions appropriately at this time. Care providers, pharmacy, and demographics verified/updated. Strata: 1 Admitting Dx: 360 Lumbar fusion L2-3, L3-4, L4-5 PCP: Jasvir Specialists: Krystle Alvarenga. Preferred Pharmacy: [facility], Prescription Benefit: yes LNOK: Darren, Living Arrangements: Pt lives with in a 1 level home with 1 step to enter. ADLs: Pt reports I at baseline. Transportation: Pt drives self and denies concerns with transportation. DME: Cane, walker HHC/SNF: Denies Hx of. Pt states no concerns with going home at time of dc. Pt states no further concerns/needs. CM to follow. Advised pt to ask CM if any further question/concerns/needs arise, voices understanding. ISAIAS ROJO gave report to ISAIAS ROJO on unit. Pt Goal: Home Plan: Home with family support. Follow therapy for recommendations. Sarai ESPARZA CM
--- NOTE | 2025-05-17 12:49 | PN.ORTHO_ITS ---
Subjective Subjective Postop day 1 L2-5 fusion. Patient has been up to the bathroom. Says that she does have some pain but for the most part it has been managed with medications. Patient has walked with PT/OT. They recommend that she continue with the plan to therapy 2 weeks after surgery. Patient has not yet passed gas. Continue liquid diet. Seen with Dr. Alvarenga. Objective Data Objective Data Vital Signs: Vital Signs Temp Pulse Resp BP Pulse Ox O2 Del Method O2 Flow Rate 97.8 F 86 18 159/86 H 96 Room Air 4 05/17/25 08:10 05/17/25 08:10 05/17/25 08:10 05/17/25 08:10 05/17/25 08:10 05/17/25 08:10 05/16/25 15:10 FiO2 32 05/16/25 14:15 Oxygen Flow Rate (L/min) 4 Oxygen Delivery Method Room Air Weight: 240 lb Body Mass Index (BMI) 0.0 Intake & Output: Intake and Output for Last 24 Hours 05/15/25 05/16/25 05/17/25 23:59 23:59 23:59 Intake Total 2861.5 / 2861.5 110 / 110 Output Total 1500 / 1500 350 / 350 Balance 1361.5 / 1361.5 -240 / -240 Lab / Micro Data 05/17/25 07:02 05/17/25 07:02 Labs: Laboratory Results - last 24 hr 05/16/25 14:28: POC Glucose 177 H 05/17/25 06:35: POC Glucose 135 H 05/17/25 07:02: WBC 12.2 H, RBC 3.35 L, Hgb 10.4 L, Hct 31.5 L, MCV 94.0, MCH 31.0, MCHC 33.0, RDW Std Deviation 46.8 H, RDW Coeff of Chun 13.6, Plt Count 245, MPV 9.3, Immature Gran % (Auto) 0.800, Neut % (Auto) 79.0 H, Lymph % (Auto) 11.8 L, Davis % (Auto) 8.1, Eos % (Auto) 0.1, Baso % (Auto) 0.2, Absolute Neuts (auto) 9.6 H, Absolute Lymphs (auto) 1.44, Nucleated RBC % 0, Sodium 133, Potassium 4.2, Chloride 97 L, Carbon Dioxide 24.7, Anion Gap 11, BUN 13, Creatinine 0.80, Estim Creat Clear Calc 110.85, Est GFR (MDRD) Non-Af 79, BUN/Creatinine Ratio 16.0, Glucose 132 H, Calcium 8.5 Radiography Diagnostic Testing: Radiology Impression Lumbar Spine X-Ray 05/16/25 07:45 IMPRESSION: As above. Reading Location: [facility] Lumbar Spine X-Ray 05/17/25 05:30 IMPRESSION: No evidence for acute abnormality. Reading Location: [place] [address] Physical Exam Narrative Neurological examination of the lower extremity shows 5X5 power. Normal sensation across all dermatomes. The patient was pretty painful and it was difficult for her to do any bed mobility. Physical examination of the back and belly shows Tegaderm and gauze CDI. Const alert, oriented x3 and no apparent distress Assessment & Plan Assessment/Plan (1) Status post lumbar spinal fusion: PLAN: Plan Postop day 1 L2-5 fusion. Obtained and reviewed x-rays today which show hardware and bone graft in good position. PT/OT okay for discharge. Continue liquids until flatus. Dulcolax x 1 ordered. Reviewed and educated on the use of the incentive spirometer. Reviewed restrictions of no bending, lifting, twisting. Encouraged the patient to walk more during this postop state. If she does not pass flatus today she will stay another night. A second Dulcolax will be ordered or a suppository. If patient does pass gas and tolerates a solid meal before the end of the day she will go home. Patient is in agreement.
[2025-05-17 13:23] VITALS: BP 152/79; PULSE 86; RESP 16; TEMP 36.3; O2SAT 96
--- NOTE | 2025-05-17 13:28 | DCINST_ITS ---
Discharge Instructions DC O2, CPAP, BIPAP needs Home O2 Discharge instructions: No Follow Up Care Test Results: Test results from this visit will be discussed in further detail at your follow- up appointment, if applicable. Discharge Plan Admission Admit Date/Time: 05/16/25 05:29 Attending Provider: Praveen Alvarenga Primary Care Provider: Miguel Tay Consulting Providers: Sami Chaudhary; Jasmyn Last; Jose Eduardo Shay; Jose Eduardo Cheng; Carmen Cui; Jake Souza; Marita Shepherd; Issa Mae; Li Tran; Sadi Prasad; Santi Huang; Hayes Freitas; Miranda Herr; Rich Vick; Jacqueline Barboza; Carlos Guillen; Dennis Beaver Instructions Patient Instructions: Lumbar Fusion Dc Additional Instructions / Restrictions: Keep Tegaderm and gauze clean and dry. If Tegaderm is intact, okay to shower. After 5 days remove Tegaderm and gauze and cover with a Band-Aid. Replace Band- Aid daily thereafter. No bending lifting or twisting. Follow-up in clinic in 2 weeks. Discharge Orders/Prescriptions Prescriptions: New acetaminophen 500 mg Tablet 1,000 mg PO Q8 Qty: 30 0RF meloxicam 15 mg Tablet 15 mg PO DAILY Qty: 30 0RF Rx Instructions: Take once a day methocarbamol 500 mg Tablet 750 mg PO TID PRN (Reason: Pain/spasms) Qty: 60 0RF oxycodone 5 mg Tablet 2.5 - 5 mg PO Q6H PRN (Reason: pain) 7 Days Qty: 28 0RF sennosides-docusate sodium [Stimulant Laxative Plus] 8.6-50 mg Tablet 2 tab PO BID PRN (Reason: constipation) Qty: 14 0RF Continued metformin 500 mg tablet extended release 24 hr 500 mg PO QAM losartan 100 mg tablet 100 mg PO QDAY atorvastatin 40 mg tablet 40 mg PO QDAY gabapentin 300 mg capsule 300 mg PO TID PRN (Reason: pain) Patient Comments: 5 capsules a day in 3 divided doses if needed bupropion HCl 150 mg tablet extended release 24 hr 150 mg PO QDAY levothyroxine 175 mcg tablet 175 mcg PO .qd Discontinued cyclobenzaprine 10 mg tablet 10 mg PO TID PRN (Reason: muscle spasm) diclofenac sodium 100 mg tablet extended release 24 hr 100 mg PO QDAY Other Ambulatory Orders: MRSA/SAID SCREEN (PRE SURG) (Routine) Timeframe: 20250510 Facility: [facility] - Location: Laboratory Ordered By: Dr. Praveen Alvarenga Referrals / Follow Up: Miguel Tay MD [Primary Care Provider] - Disposition Disposition (needs filled in before D/C Order can be placed): Home, Self Care
--- NOTE | 2025-05-17 13:42 | CASEMGMT ---
Pt has an order for DC placed. This RN ALIA was notified that the pt wants to know her total Rx costs. TC to [facility] who states that the pt's total cost is 45$. ISAIAS CM to the pt room at this time, SO at bedside. Pt updated on the Rx $ and states that she is OK with this. Pt states that she feels safe returning home today with her SO and denies any further questions, concerns, or needs at this time. Pt plans to follow up with ortho in 2 weeks as scheduled.
--- NOTE | 2025-05-17 14:33 | PHA.DC_ITS ---
Pharmacy [facility] Counseling Pharmacy Service has performed discharge medication reconciliation and counseling for this patient. 1. ACETAMINOPHEN 1000MG PO Q8 2. MELOXICAM 15MG PO DAILY 3. METHOCARBAMOL 750MG PO TID PRN MUSCLE SPASMS/PAIN 4. OXYCODONE 2.5-5MG PO Q6H PRN PAIN 5. SENNA/DOCUSATE 2T PO BID PRN CONSTIPATION 6. STOP FLEXERIL AND VOLTAREN The patient's discharge medication list was reviewed for discrepancies and discrepancies were resolved. The patient was counseled on the following discharge medications and changes in medications for homegoing were reviewed. The Reason for Use, instructions for use, and potential side effects were reviewed for all new medications. The patient's questions regarding all of their medications were answered. The patient was able to verbally demonstrate an understanding of their discharge medications. Medications at Discharge Home Medications atorvastatin 40 mg tablet 40 mg PO QDAY cholesterol 11/29/24 gabapentin 300 mg capsule 300 mg PO TID PRN pain 11/29/24 losartan 100 mg tablet 100 mg PO QDAY bp 11/29/24 metformin 500 mg tablet,extended release 24 hr 500 mg PO QAM blood sugar 11/29/24 bupropion HCl 150 mg 24 hr tablet, extended release 150 mg PO QDAY depression 02/18/25 levothyroxine 175 mcg tablet 175 mcg PO .qd thyroid 05/02/25 acetaminophen 500 mg tablet 1,000 mg (2 x 500 mg) PO Q8 #30 tabs 05/17/25 meloxicam 15 mg tablet 15 mg PO DAILY #30 tabs 05/17/25 methocarbamol 500 mg tablet 750 mg (1.5 x 500 mg) PO TID PRN Pain/spasms #60 tabs 05/17/25 oxycodone 5 mg tablet 2.5 - 5 mg (0.5 - 1 x 5 mg) PO Q6H PRN pain 7 days #28 tabs 05/17/25 sennosides 8.6 mg-docusate sodium 50 mg tablet (Stimulant Laxative Plus) 2 tab PO BID PRN constipation #14 tabs 05/17/25
[2025-05-17] MEDS: buPROPion (XL) 150 MG TABLET.XL PO (15:18)
[2025-05-17 18:11] VITALS: BP 158/79; PULSE 98; RESP 16; TEMP 36.4; O2SAT 97
== END 2025-05-17 17:57 | disposition home health service (06) | DRG 428 ==
PROVIDERS: Anesthesiology; Student in an Organized Health Care Education/Training Program; Admitting Provider Orthopaedic Surgery Orthopaedic Surgery of the Spine; PCP Family Medicine; Referring Provider Orthopaedic Surgery Orthopaedic Surgery of the Spine; Visit Provider Orthopaedic Surgery Orthopaedic Surgery of the Spine
PROC: 0SG10A0 Fusion of 2 or more Lumbar Vertebral Joints with Interbody Fusion Device, Anterior Approach, Anterior Column, Open Approach (ICD-10-PCS; principal; 2025-05-16 07:00)
DX: M48.062 Spinal stenosis, lumbar region with neurogenic claudication (principal); M41.56 Other secondary scoliosis, lumbar region; E11.9 Type 2 diabetes mellitus without complications; E03.9 Hypothyroidism, unspecified; I10 Essential (primary) hypertension; F32.A Depression, unspecified; Z68.33 Body mass index [BMI] 33.0-33.9, adult; M43.16 Spondylolisthesis, lumbar region; M19.90 Unspecified osteoarthritis, unspecified site; M51.16 Intervertebral disc disorders with radiculopathy, lumbar region; F17.210 Nicotine dependence, cigarettes, uncomplicated; F41.9 Anxiety disorder, unspecified; Z79.1 Long term (current) use of non-steroidal anti-inflammatories (NSAID); Z79.84 Long term (current) use of oral hypoglycemic drugs; M85.80 Other specified disorders of bone density and structure, unspecified site; Z79.890 Hormone replacement therapy; E66.811 Obesity, class 1; N39.43 Post-void dribbling
CPT/HCPCS: 36415; 72100; 76000; 80048; 82962; 83036; 83735; 84443; 85025; 86703; 86706; 86708; 86803; 86850; 86900; 86901; 93005; 94668; 97162; 97166; 99406; A4648; C1713; A4216; J2405; J3475

== ENCOUNTER → 2025-08-31 | Outpatient (CLI) | payer MEDICARE, OTHER, SELFPAY ==
--- NOTE | 2025-08-31 09:57 | ECHOCS_ITS ---
Reason For Study Reason For Study: Lower Extremity Edema Procedure This was a 2D Doppler, Color Flow transthoracic echocardiogram. The patient is in sinus rhythm. The study was technically difficult. Contrast injection was performed. Exam performed in department. Left Ventricle Normal-sized left ventricle. Left ventricular systolic function by Turcios's biplane: 64%. Normal diastolic function. No regional wall motion abnormalities noted. Right Ventricle Normal right ventricle. Normal systolic function. RVSP estimated at: 30 mmHg. Atria The left and right atria are normal. Bubble contrast study is negative for PFO/ASD. Normal atrial septum. Mitral Valve Normal mitral valve. Trace mitral regurgitation. No mitral stenosis. Tricuspid Valve Normal tricuspid valve. No tricuspid stenosis. Trace tricuspid regurgitation. Aortic Valve Tricuspid aortic valve. No hemodynamically significant aortic stenosis. No aortic regurgitation. Calcified noncoronary cusp. Pulmonic Valve Normal pulmonic valve. No pulmonic regurgitation. No pulmonic stenosis. Great Vessels Normal sized aortic root. Normal ascending aorta. Pericardium/Pleural No pericardial effusion. Epicardial fat. Medication 22 gauge I.V. with prn adaptor inserted into right arm. Diluted definity 1.5ml given slow IV push to enhance endocardial definition. Performed a rapid injection of agitated mix of 9 cc saline and 1cc air to assess for atrial septal defect. MMode/2D Measurements & Calculations LVIDd: 5.1 cm IVSd: 1.2 cm Ao root diam: 3.5 cm LVIDs: 3.2 cm LVPWd: 0.79 cm RVDd: 3.3 cm FS: 37.6 % LAV(MOD-bp): 50.4 ml LVAd ap4: 29.8 cm2 SV(MOD-sp4): 55.6 ml LAV(MOD-bp) Indexed: 22.8 ml/m2 LVLd ap4: 8.3 cm SI(MOD-sp4): 25.1 ml/m2 LAV(MOD-sp2): 59.8 ml EDV(MOD-sp4): 87.0 ml LAV(MOD-sp4): 39.8 ml EDV(sp4-el): 90.1 ml LVAs ap4: 15.7 cm2 LVLs ap4: 6.7 cm ESV(MOD-sp4): 31.4 ml ESV(sp4-el): 30.9 ml EF(MOD-sp4): 63.9 % EF(sp4-el): 65.7 % SV(sp4-el): 59.2 ml LA A4 area: 16.0 cm2 LA dimension(2D): 4.3 cm RA A4 area: 18.8 cm2 Time Measurements MV dec time: 0.25 sec Doppler Measurements & Calculations MV E max noman: 61.0 cm/sec Lat Peak E' Noman: 5.3 cm/sec Med Peak E' Noman: 8.4 cm/sec MV A max noman: 68.1 cm/sec E/E' lat: 11.4 E/E' med: 7.2 MV E/A: 0.90 MV V2 max: 78.9 cm/sec MV P1/2t max noman: 68.6 cm/sec Ao V2 max: 139.1 cm/sec MV max P.5 mmHg MV P1/2t: 75.2 msec Ao max P.7 mmHg MV V2 mean: 42.8 cm/sec MV dec slope: 267.0 cm/sec2 Ao V2 mean: 94.3 cm/sec MV mean P.87 mmHg MVA(P1/2t): 2.9 cm2 Ao mean P.1 mmHg MV V2 VTI: 19.9 cm Ao V2 VTI: 27.7 cm AV (velocity ratio): 0.82 LV V1 max: 109.4 cm/sec PA V2 max: 107.8 cm/sec TR max noman: 258.4 cm/sec LV V1 max P.8 mmHg TR max P.7 mmHg LV V1 mean P.5 mmHg LV V1 mean: 76.0 cm/sec LV V1 VTI: 22.7 cm ECHO/Echo Complete W/ Contrast Interpretation Summary Normal left ventricular systolic function with EF by Turcios's biplane: 64% Normal left ventricular diastolic Normal left ventricular wall motion Normal right ventricular systolic function No hemodynamically significant valvular disease Negative bubble study for PFO/ASD Ordering Physician: Jose Eduardo Easton Referring Physician: Jose Eduardo Easton Performed By: Danilo Pulido RCS
== END | disposition home or self-care (01) ==
LOC: CVS 09:56
PROVIDERS: PCP Family Medicine; Referring Provider Student in an Organized Health Care Education/Training Program; Visit Provider Student in an Organized Health Care Education/Training Program
DX: R60.0 Localized edema (principal); I10 Essential (primary) hypertension
CPT/HCPCS: 93306; Q9957; A4216; C8929